=== PATIENT | female | born 1990 | race Caucasian/White ===

== ENCOUNTER 2016-09-18 14:59 | Outpatient (CLI) | payer BC ==
[~2016-09-18 14:59] MED LIST: AC500T; CIPR500T78 PO; CPR500T; DOCU-143 PO; FRS325T PO; HYDR-3454 PO; IBP600T1 PO; ONDA4TAB11 PO; PREN1TAB39
--- NOTE | 2016-09-21 10:13 | Physician Query-Final Dx ---
JAVY SCHUSTER 09/21/16 1013: Clinic Account Progress/Dx Physician Query: Please give diagnosis Date of Service Sep 18, 2016 at 14:59 YAO OCONNELL MD 09/25/16 0913: Clinic Account Progress/Dx DIAGNOSIS: Diagnosis Salivary gland swelling JAVY SCHUSTER Sep 21, 2016 10:13 YAO OCONNELL MD Sep 25, 2016 09:13
[2016-09-21 16:55] LABS: IGG MUMPS ANTIBODY 1.69 (0.00-0.89)
[2016-09-23 06:52] LABS: IGM MUMPS ANTIBODY <1:10 (<1:10)
== END 2016-09-18 15:45 | disposition home or self-care (01) ==
LOC: LAB 14:59
PROVIDERS: ATTEND Emergency Medicine
DX: R22.0 Localized swelling, mass and lump, head (principal)
CPT/HCPCS: 36415; 86735; 87798

== ENCOUNTER 2016-10-23 09:45 | Emergency (ER) | payer BC, OTHER ==
[~2016-10-23] VITALS: Ht 175.3 cm; Wt 74.8 kg
[2016-10-23] MEDS ORDERED: CETI10CA PO (10:02)
--- NOTE | 2016-10-23 10:30 | Diagnostic Imaging Report ---
Three views of the left middle finger. INDICATION: Injury. FINDINGS: There is no fracture, dislocation or radiopaque foreign body. IMPRESSION: Unremarkable exam. Dictated by: Dictated on workstation # [id number]
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
[2016-10-23 10:41] VITALS: BP 122/59
[2016-10-23] MEDS ORDERED: IBUPROFEN 800 MG (MOTRIN) TAB PO ONE (10:45)
== END 2016-10-23 10:42 | disposition home or self-care (01) ==
LOC: EDUNIT# 09:45 → ER 09:47
DX: S60.132A Contusion of left middle finger with damage to nail, initial encounter (principal); W23.0XXA Caught, crushed, jammed, or pinched between moving objects, initial encounter; Y99.8 Other external cause status
CPT/HCPCS: 29130; 73140

== ENCOUNTER 2017-02-09 23:13 | Emergency (ER) | payer BC ==
[~2017-02-09] VITALS: Ht 175.3 cm; Wt 74.8 kg
[~2017-02-09 23:13] MED LIST changes: +CETI10CA PO
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
[2017-02-10] MEDS ORDERED: RX-TRIMETH/SULFA. 160-800 MG (BACTRIM DS) TAB PPK#2 PO STA (00:16)
[2017-02-10] MEDS ORDERED: RX-NAPROXEN (NAPROSYN) 250 MG TAB PPK#4 PO STA (00:16)
[2017-02-10] MEDS ORDERED: RX-TRAMADOL 50 MG (ULTRAM) TAB PPK#4 PO STA (00:16)
[2017-02-10] MEDS ORDERED: SULF1TAB35 PO (00:24)
[2017-02-10] MEDS ORDERED: NAPR500T3 PO (00:24)
[2017-02-10] MEDS ORDERED: TRAM-42 PO (00:24)
[2017-02-10] MEDS ORDERED: TETANUS,DIPTH,PERTUSS P/F (BOOSTRIX) 0.5 ML VIAL IM ONE (00:30)
[2017-02-10 00:49] VITALS: BP 120/72
--- NOTE | 2017-02-10 08:18 | Diagnostic Imaging Report ---
EXAMINATION: 3 views of the right foot. INDICATION: Right foot pain and swelling. FINDINGS: There is no fracture, dislocation or radiopaque foreign body identified. Joint alignment is satisfactory. IMPRESSION: Unremarkable exam. Dictated by: Dictated on workstation # [id number]
--- OUTSIDE RECORDS SUMMARY | 2017-02-10 17:42 | XMS REPORT ---
Author Author ARIAN BAEZ [facility] eClinicalWorks Address Unknown Phone Unavailable Care Team Providers Care Backbreaker Name Role Phone ARIAN BAEZ CP Unavailable Allergies No Known Allergies Problems Problem Type Condition Code Onset Dates Condition Status Problem Health examination of defined subpopulation V70.5 Active Problem Unspecified viral infection, in conditions classified elsewhere and of unspecified site 079.99 Active Problem Contact with or exposure to unspecified communicable disease V01.9 Active Problem Screening examination for pulmonary tuberculosis V74.1 Active Problem Abdominal tenderness, right upper quadrant 789.61 Active Problem Need for prophylactic vaccination and inoculation, Influenza V04.81 Active Problem Abdominal pain, other specified site 789.09 Active Problem Acute bronchospasm 519.11 Active Problem Influenza with other respiratory manifestations 487.1 Active Problem Pain in joint, shoulder region 719.41 Active Problem Streptococcal sore throat 034.0 Active Medications No Known Medications Results No Known Results Summary Purpose eClinicalWorks Submission
--- OUTSIDE RECORDS SUMMARY | 2017-02-10 17:42 | XMS REPORT ---
Author Author SAVANNA FERNANDEZ Organization eClinical[employer] Address Unknown Phone Unavailable Care Team Providers Care Waiter/Waitress Name Role Phone SAVANNA FERNANDEZ CP Unavailable Allergies, Adverse Reactions, Alerts Substance Reaction Event Type Latex Info Not Available Non Drug Allergy Problems Problem Type Condition Code Onset Dates Condition Status Problem Health examination of defined subpopulation V70.5 Active Problem Unspecified viral infection, in conditions classified elsewhere and of unspecified site 079.99 Active Problem Contact with or exposure to unspecified communicable disease V01.9 Active Assessment Gastroenteritis K52.9 Active Problem Screening examination for pulmonary tuberculosis V74.1 Active Problem Abdominal tenderness, right upper quadrant 789.61 Active Problem Need for prophylactic vaccination and inoculation, Influenza V04.81 Active Problem Abdominal pain, other specified site 789.09 Active Problem Acute bronchospasm 519.11 Active Problem Influenza with other respiratory manifestations 487.1 Active Problem Pain in joint, shoulder region 719.41 Active Problem Streptococcal sore throat 034.0 Active Medications Medication Code System Code Instructions Start Date End Date Status Dosage Zofran ODT [facility] [address]-09 4 MG Orally every 8 hrs Jul 16, 2015 1 tablet on the tongue and allow to dissolve Procedures Procedure Coding System Code Date Office Visit, Est Pt., Level 3 CPT-4 32750 Jul 16, 2015 Vital Signs Date/Time: Jul 16, 2015 Temperature 98.6 F Weight 163 lbs Height 69 in BMI 24.07 Index Blood Pressure Diastolic 68 mmHg Blood Pressure Systolic 116 mmHg Cardiac Monitoring Heart Rate 72 bpm Results No Known Results Summary Purpose eClinicalWorks Submission
--- OUTSIDE RECORDS SUMMARY | 2017-02-10 17:42 | XMS REPORT ---
Author Author YANIV BROWNLEE [facility] eClinicalWorks Address Unknown Phone Unavailable Care Team Providers Care Pump Erector Helper Name Role Phone YANIV BROWNLEE CP Unavailable Allergies, Adverse Reactions, Alerts Substance Reaction Event Type Latex Info Not Available Non Drug Allergy Problems Problem Type Condition Code Onset Dates Condition Status Problem Health examination of defined subpopulation V70.5 Active Problem Unspecified viral infection, in conditions classified elsewhere and of unspecified site 079.99 Active Problem Contact with or exposure to unspecified communicable disease V01.9 Active Assessment Abdominal wall pain R10.9 Active Problem Screening examination for pulmonary tuberculosis [...] Instructions Start Date End Date Status Dosage Tramadol HCl [facility] [address]-93 50 mg Orally every 6 hrs Mar 24, 2016 1 tablet as needed Procedures Procedure Coding System Code Date Office Visit, Est Pt., Level 3 CPT-4 66057 Mar 24, 2016 Vital Signs Date/Time: Mar 24, 2016 Cardiac Monitoring Heart Rate 72 bpm Weight 167.2 lbs Height 69 in BMI 24.69 Index Blood Pressure Diastolic 64 mmHg Blood Pressure Systolic 120 mmHg Results No Known Results Summary Purpose eClinicalWorks Submission
--- OUTSIDE RECORDS SUMMARY | 2017-02-10 17:42 | XMS REPORT ---
Author Author ARIAN BAEZ [facility] eClinicalWorks Address Unknown Phone Unavailable Care Team Providers Care Fur Dyer Name Role Phone ARIAN BAEZ CP Unavailable [...]
--- OUTSIDE RECORDS SUMMARY | 2017-02-10 17:42 | XMS REPORT ---
Author ANDRES Vaz [facility] eClinicalWorks Address Unknown Phone Unavailable Care Team Providers Care Polymerization Supervisor Name Role Phone ANDRES SWEENEY CP Unavailable Allergies No Known Allergies Problems Problem Type Condition Code Onset Dates Condition Status Problem Contact with or exposure to unspecified communicable disease V01.9 Active Problem Influenza with other respiratory manifestations 487.1 Active Problem Unspecified viral infection, in conditions classified elsewhere and of unspecified site 079.99 Active Problem Screening examination for pulmonary tuberculosis V74.1 Active Problem Health examination of defined subpopulation V70.5 Active Problem Abdominal pain, other specified site 789.09 Active Problem Abdominal tenderness, right upper quadrant 789.61 Active Problem Seasonal allergic rhinitis, unspecified allergic rhinitis trigger J30.2 Active Problem Streptococcal sore throat 034.0 Active Problem Acute bronchospasm 519.11 Active Problem Need for prophylactic vaccination and inoculation, Influenza V04.81 Active Problem Pain in joint, shoulder region 719.41 Active Medications No Known Medications Vital Signs Date/Time: Jul 06, 2016 Cardiac Monitoring Heart Rate 76 bpm Weight 170.8 lbs Height 69 in BMI 25.22 Index Blood Pressure Diastolic 70 mmHg Blood Pressure Systolic 118 mmHg Results No Known Results Summary Purpose eClinicalWorks Submission
--- OUTSIDE RECORDS SUMMARY | 2017-02-10 17:43 | XMS REPORT ---
Author Author YANIV BROWNLEE [facility] eClinicalWorks Address Unknown Phone Unavailable Care Team Providers Care Retail Service Technician Name Role Phone YANIV BROWNLEE CP Unavailable Allergies No Known Allergies Problems Problem Type Condition Code Onset Dates Condition Status Problem Health examination of defined subpopulation V70.5 Active Problem Unspecified viral infection, in conditions classified elsewhere and of unspecified site 079.99 Active Problem Contact with or exposure to unspecified communicable disease V01.9 Active Assessment Abdominal wall mass R19.00 Active Problem Screening examination for pulmonary tuberculosis [...]
== END 2017-02-10 00:49 | disposition home or self-care (01) ==
LOC: EDUNIT# 23:13 → ER 23:15
DX: L03.115 Cellulitis of right lower limb (principal); F17.210 Nicotine dependence, cigarettes, uncomplicated; Z23 Encounter for immunization
CPT/HCPCS: 73630; 90471; 90715; 99284

== ENCOUNTER 2018-06-03 19:59 | Observation (INO) | payer SELFPAY ==
[~2018-06-03] VITALS: Ht 177.8 cm; Wt 76.5 kg
[~2018-06-03 19:59] MED LIST changes: +NAPR-915 PO; +SULF1TAB35 PO; +TRAM-42 PO
[2018-06-03] MEDS ORDERED: LACTATED RINGERS 1,000 ML IV ONE ×3 (20:08→21:04)
--- OUTSIDE RECORDS SUMMARY | 2018-06-03 20:15 | XMS REPORT ---
Author Author VAN MOLINA Organization [facility] Address [address] [place] [address] Care Team Providers Care Green Chain Offbearer Name Role Phone VAN MOLINA Unavailable PROBLEMS Type Condition ICD9-CM Code NTV87-OR Code Onset Dates Condition Status SNOMED Code Problem Abdominal wall mass R22.2 Active 424527384 Problem Seasonal allergic rhinitis, unspecified allergic rhinitis trigger J30.2 Active 806134030 ALLERGIES Substance Reaction Event Type Date Status Latex Unknown Non Drug Allergy Apr, Active ENCOUNTERS Encounter Location Date Diagnosis [facility] [address] [address] Apr, Light headed R42 ; Gastroenteritis K52.9 and Nausea R11.0 [facility] [address] [address] Aug, Cough R05 and Nasopharyngitis acute J00 [facility] [address] [place] [address] Aug, Other viral agents as the cause of diseases classified elsewhere B97.89 and Acute upper respiratory infection, unspecified J06.9 [facility] [address] [address] Aug, Cough R05 and Acute nasopharyngitis J00 [facility] [address] [address] Jun, Sore throat J02.9 ; Body aches R52 and Viral syndrome B34.9 [facility] [address] [id number] Jun, Dental caries K02.9 [facility] [address] [place] [id number] May, Dental examination Z01.20 [facility] [address] [place] [id number] May, Dental examination Z01.20 [facility] [id number] [place] [address] Mar, Acute bilateral low back pain without sciatica M54.5 and Abdominal wall mass R22.2 [facility] [address] [address] Mar, Viral gastroenteritis A08.4 [facility] [address] [address] Feb, [facility] [address] [address] Feb, [place] [address] [address] Feb, Right foot injury, initial encounter S99.921A [facility] [id number] [place] [address] Jan, Sore throat J02.9 [id number] [place] [address] Jan, [facility] [id number] [place] [address] Oct, Gastroenteritis K52.9 [facility] [id number] [place] [address] 16 Sep, 2016 Sore throat J02.9 and Seasonal allergic rhinitis, unspecified allergic rhinitis trigger J30.2 [facility] [id number] [place] [address] 10 Sep, 2016 [facility] [id number] [place] [address]67 [address] 09 Sep, 2016 Sore throat J02.9 ; Acute non-recurrent frontal sinusitis J01.10 and Allergic rhinitis, unspecified allergic rhinitis trigger, unspecified rhinitis seasonality J30.9 [facility] [address] [address] Aug, Sore throat J02.9 ; Fever R50.9 ; Strep pharyngitis J02.0 and Influenza A J10.1 [facility] [address] [address] Jun, Sore throat J02.9 ; Seasonal allergic rhinitis, unspecified allergic rhinitis trigger J30.2 and Strep pharyngitis J02.0 [facility] [address] [address] Jun, [facility] [address] [address] Mar, Abdominal wall mass R19.00 [facility] [address] [address] Mar, Abdominal wall pain R10.9 [facility] [address] [address] Jan, Examination, physical, employee Z02.89 and Screening for tuberculosis Z11.1 [facility] [address] [id number] December, Dental caries K02.9 [facility] [address] [id number] December, Dental examination Z01.20 [facility] [address] [id number] Nov, Encounter for dental examination Z01.20 [facility] [address] [id number] Nov, Dental examination V72.2 [facility] [address] [id number] Nov, Dental examination Z01.20 [facility] [address] [id number] 08 Oct, 2015 Encounter for dental examination Z01.20 [facility] [id number] [place] [address] 08 Jul, 2015 Gastroenteritis K52.9 [facility] [id number] [place] [address]267[address] 8215 Jun, [facility] [id number] [place] [address]- 406[address] May, [facility] [id number] [place] [address]37- 4[address] Mar, [facility] [id number] [place] [address]126- 8168 Mar, Conjunctivitis of left eye 372.30 [facility] [id number] [place] [address] 23124- 5471 Jan, Dysuria 788.1 ; Urinary tract infection, site not specified 599.0 and Acute sinusitis 461.9 [facility] [id number] [place] [address]388[address] 4870 Jan, [facility] [id number] [place] [address] 28424- 0121 Jan, Pharyngitis 462 [facility] [address] [place] [address] 80393[address] 6661 Nov, [facility] [id number] [place] [address] 10586- 4015 Nov, [facility] [id number] [place] [address] 35408- 7222 Aug, [facility] [id number] [place] [address] 72181- 6818 Aug, [facility] [address] [place] [address] 47813- 5[address] Jun, [facility] [address] [facility] [id number] [place] [address] Jun, [facility] [place] [facility] [address] [id number] [place] [address]- 7[address] Jun, [facility] [place] [facility] [address] [id number] [place] [address] 3[address] Jun, [facility] [place] [facility] [address] [id number] [place] [address]- 0659 Feb, [facility] [place] [facility] [address] [id number] [place] [address]- 5[address] Feb, [facility] [place] [facility] [address] [id number] [place] [address] 3[address] December, [facility] [place] [facility] [address] [id number] [place] [address]- 55[address] December, [facility] [place] [facility] [address] [id number] [place] [address]- 450[address] December, [facility] [place] [facility] [address] [id number] [place] [address] 4[address] December, [facility] [place] [facility] [address] [id number] [place] [address] 12[address] December, [facility] [place] [facility] [address] [id number] [place] [address]- 1483 Oct, [facility] [place] [facility] [address] [id number] [place] [address] 39[address] Oct, [facility] [place] [facility] [address] [id number] [place] [address]- 1709 Sep, [facility] [place] [facility] [address] [id number] [place] [address] Sep, [facility] [place] [facility] [address] [id number] [place] [address]- 9666 Aug, [facility] [place] [facility] [address] [id number] [place] [address] 16[address] Aug, [facility] [id number], [place] [address] Jul, [facility] [address], [place] [address] 6[address] Jul, [facility] [address] [id number], [place] [address] 04[address] Jul, [facility] [id number] [place] [address] 73598- 2546 Jul, [facility] [address] [place] [address] 88268- 7982 Jun, [facility] [address] [place] [address] 04690- 0336 Jun, [facility] [address], [place] [address] 136[address] Sep, [facility] [id number], [place] [address] 9[address] Mar, IMMUNIZATIONS No Known Immunizations SOCIAL HISTORY Never Assessed REASON FOR VISIT working at [employer]...suddenly got lightheaded et though she was going to pass out. sat down et was given some water. felt nauseated right after. [email or web address], denies unusual stress, did eat today. PLAN OF CARE Activity Details Follow Up prn Reason:if symptoms worsen VITAL SIGNS Height 69 in 2018-04-19 Weight 152.6 lbs 2018-04-19 Temperature 98.3 degrees Fahrenheit 2018-04-19 Heart Rate 88 bpm 2018-04-19 Respiratory Rate 20 2018-04-19 BMI 22.53 kg/m2 2018-04-19 Blood pressure systolic 118 mmHg 2018-04-19 Blood pressure diastolic 68 mmHg 2018-04-19 MEDICATIONS Medication Instructions Dosage Frequency Start Date End Date Duration Status IBU-200 200 MG Orally every 6 hrs 1 tablet with food or milk as needed 6h Active Ondansetron HCl 8 MG Orally Twice a day 1 tablet 12h 11 Apr, 2018 5 days Active RESULTS Name Result Date Reference Range GLUCOSE FINGERSTICK (IN HOUSE) 2018-04-19 GLU FINGERSTICK 97 PC + Lot # [id number] Exp date 2018 PROCEDURES Procedure Date Ordered Result Body Site GLUCOSE BLOOD TEST Apr 19, 2018 INSTRUCTIONS MEDICATIONS ADMINISTERED No Known Medications MEDICAL (GENERAL) HISTORY Type Description Date Surgical History Hysterectomy-partial 04/2013 Surgical History section 08/2011 Surgical History tubal ligation 10/2011 Surgical History scar tissue removed from csection scar 2016
--- OUTSIDE RECORDS SUMMARY | 2018-06-03 20:15 | XMS REPORT ---
Author Author ANGELIQUE ANDREA Organization [facility] Address [address] [place] [address] Care Team Providers Care Paper Supervisor Name Role Phone ANGELIQUE ANDREA Unavailable PROBLEMS Type Condition ICD9-CM Code GMP62-LI Code Onset Dates Condition Status SNOMED Code Problem Abdominal wall mass R22.2 Active 780487376 Problem Seasonal allergic rhinitis, unspecified allergic rhinitis trigger J30.2 Active 008842850 ALLERGIES Substance Reaction Event Type Date Status Latex Unknown Non Drug Allergy Aug, Active ENCOUNTERS Encounter Location Date Diagnosis [facility] [address] [address] Aug, Cough R05 and Nasopharyngitis acute J00 [facility] [address] [address] Aug, Other viral agents as the cause of diseases classified elsewhere B97.89 and Acute upper respiratory infection, unspecified J06.9 [facility] [id number] [place] [address] Aug, Cough R05 and Acute nasopharyngitis J00 [facility] [address] [address] Jun, Sore throat J02.9 ; Body aches R52 and Viral syndrome B34.9 [facility] [address] [id number] Jun, Dental caries K02.9 [facility] [address] [id number] May, Dental examination Z01.20 [facility] [address] [id number] May, Dental examination Z01.20 [facility] [id number] [place] [address]2 Mar, Acute bilateral low back pain without sciatica M54.5 and Abdominal wall mass R22.2 [facility] [address] [address] Mar, Viral gastroenteritis A08.4 [place] [address] [address] Feb, [place] [address] [address] Feb, [place] [address] [address] Feb, Right foot injury, initial encounter S99.921A [facility] [address] [place] [address] Jan, Sore throat J02.9 [facility] [address] [address] Jan, [facility] [address] [place] [address] 14 Oct, 2016 Gastroenteritis K52.9 [facility] [address] [place] [address]8988 [address] 16 Sep, 2016 Sore throat J02.9 and Seasonal allergic rhinitis, unspecified allergic rhinitis trigger J30.2 [place] [id number] [place] [address]3546- 4489 10 Sep, 2016 [facility] [address] [place] [address] 36262 [address] 09 Sep, 2016 Sore throat J02.9 ; Acute non-recurrent frontal sinusitis J01.10 and Allergic rhinitis, unspecified allergic rhinitis trigger, unspecified rhinitis seasonality J30.9 [facility] [address] [place] [address] [id number] -3283 Aug, Sore throat J02.9 ; Fever R50.9 ; Strep pharyngitis J02.0 and Influenza A J10.1 [facility] [id number] [place] [address] 83925 -5377 Jun, Sore throat J02.9 ; Seasonal allergic rhinitis, unspecified allergic rhinitis trigger J30.2 and Strep pharyngitis J02.0 [facility] [id number] [place] [address] 80450 -[address]67 Jun, [facility] [id number] [place] [address] 32505- 6446 Mar, Abdominal wall mass R19.00 [facility] [id number] [place] [address] 93992- 2050 Mar, Abdominal wall pain R10.9 [facility] [id number] [place] [address] 69666- 6317 Jan, Examination, physical, employee Z02.89 and Screening for tuberculosis Z11.1 [facility] [id number] [place] [address] [id number] December, Dental caries K02.9 [facility] [id number] [place] [id number] December, Dental examination Z01.20 [facility] [id number] [place] [address] [id number] Nov, Encounter for dental examination Z01.20 [facility] [id number] [place] [address] [id number] Nov, Dental examination V72.2 [facility] [address] [id number] Nov, Dental examination Z01.20 [facility] [id number] [place] [address] [id number] Oct, Encounter for dental examination Z01.20 [facility] [address] [place] [address] Jul, Gastroenteritis K52.9 [facility] [id number] [place] [address] 75671- 9246 Jun, [facility] [id number] [place] [address] 35239- 0814 May, [facility] [id number] [place] [address] 51297- 9607 Mar, [facility] [id number] [place] [address] 09814- 8904 Mar, Conjunctivitis of left eye 372.30 [facility] [id number] [place] [address] 46969- 1815 Jan, Dysuria 788.1 ; Urinary tract infection, site not specified 599.0 and Acute sinusitis 461.9 [facility] [id number] [place] [address] 03176- 7191 Jan, [facility] [address] [place] [address] 19240- 3218 Jan, Pharyngitis 462 [facility] [address] [place] [address] 11035- 8829 Nov, [facility] [address] [address]- 6927 Nov, [facility] [address] [address]- 2031 Aug, [facility] [address] [address]- 5752 Aug, [facility] [id number] [place] [address] 17390- 5707 Jun, [facility] [address] [address]- 1472 Jun, [facility] [id number] [place] [address] 31679- 8875 Jun, [facility] [place] [facility] [address] [id number] [place] [address]- 8514 Jun, [facility] [place] [facility] [address] [id number] [place] [address]- 9795 Feb, [facility] [place] [facility] [address] [id number] [place] [address]- 3905 Feb, [facility] [place] [facility] [address] [id number] [place] [address]- 7662 December, [facility] [place] [facility] [address] [id number] [place] [address]- 3452 December, [facility] [place] [facility] [address] [id number] [place] [address]- 3901 December, [facility] [place] [facility] [address] [id number] [place] [address]- 5298 December, [facility] [place] [facility] [address] [id number] [place] [address]- 3756 December, [facility] [place] [facility] [address] [id number] [place] [address]- 5071 Oct, [facility] [place] [facility] [address] [id number] [place] [address]- 7849 Oct, [facility] [place] [facility] [address] [id number] [place] [address]- 3457 Sep, [facility] [place] [facility] [address] [id number] [place] [address]- 0040 Sep, [facility] [place] [facility] [address] [id number] [place] [address]- 5766 Aug, [facility] [place] [facility] [address] [id number] [place] [address]- 8392 Aug, [facility] [place] [facility] [address] [id number] [place] [address]- 4237 Jul, [facility] [place] [facility] [address] [facility] [id number] [address] 2546 Jul, [facility] [address] [facility] [id number] [address]- 4176 Jul, [facility] [address] [id number] [address]- 2546 Jul, [facility] [address] [id number] [address]- 9946 Jun, [facility] [address] [facility] [id number] [address]- 5426 Jun, [facility] [address] [id number] [address]- 2644 Sep, [facility] [address] [id number] [address]- 1706 Mar, IMMUNIZATIONS No Known Immunizations SOCIAL HISTORY Never Assessed REASON FOR VISIT flu symptoms Pt states she was seen 2 days ago and is now feeling worse. MAX Cedillo PLAN OF CARE Activity Details Follow Up prn Reason: VITAL SIGNS Height 69 in 2017-08-12 Weight 142.6 lbs 2017-08-12 Temperature 98.1 degrees Fahrenheit 2017-08-12 Heart Rate 80 bpm 2017-08-12 Respiratory Rate 20 2017-08-12 BMI 21.06 kg/m2 2017-08-12 Blood pressure systolic 101 mmHg 2017-08-12 Blood pressure diastolic 62 mmHg 2017-08-12 MEDICATIONS Medication Instructions Dosage Frequency Start Date End Date Duration Status Bactrim DS 800-160 MG Orally Twice a day 1 tablet 12h Not-Taking Tramadol HCl 50 mg Orally every 6 hrs 1 tablet as needed 6h Mar, Not-Taking Clindamycin HCl 150 MG Orally every 6 hrs 2 capsules 6h 7 days Not- Taking Naproxen 500 MG Orally every 12 hrs 1 tablet as needed 12h Not- Taking Zofran ODT 4 MG Orally every 8 hrs 1 tablet on the tongue and allow to dissolve 8h Mar, 5 days Not-Taking Zithromax 250 MG Orally Once a day 2 tablets on the first day, then 1 tablet daily for 4 days 24h 5 day(s) Not-Taking IBU-200 200 MG Orally every 6 hrs 1 tablet with food or milk as needed 6h Not-Taking RESULTS Name Result Date Reference Range INFLUENZA A & B (IN HOUSE) 2017-08-12 INFLUENZA A negative INFLUENZA B negative Control + Lot # [id number] Exp date PROCEDURES Procedure Date Ordered Result Body Site INFLUENZA ASSAY W/OPTIC Aug 12, 2017 INSTRUCTIONS MEDICATIONS ADMINISTERED No Known Medications MEDICAL (GENERAL) HISTORY Type Description Date Surgical History Hysterectomy-partial 04/2013 Surgical History section 08/2011 Surgical History tubal ligation 10/2011 Surgical History scar tissue removed from csection scar 2016
--- OUTSIDE RECORDS SUMMARY | 2018-06-03 20:15 | XMS REPORT ---
Author Author SUJEY MEZA [facility] Address [address] [place] [address] Care Team Providers Care Acid Polymerization Operator Name Role Phone SUJEY MEZA Unavailable PROBLEMS Type Condition ICD9-CM Code ZIX16-TS Code Onset Dates Condition Status SNOMED Code Problem Abdominal wall mass R22.2 Active 213050432 Problem Seasonal allergic rhinitis, unspecified allergic rhinitis trigger J30.2 Active 359843635 ALLERGIES Substance Reaction Event Type Date Status Latex Unknown Non Drug Allergy Oct, Active SOCIAL HISTORY Never Assessed PLAN OF CARE Activity Details Follow Up prn Reason: VITAL SIGNS Height 69 in 2016-10-20 Weight 169.4 lbs 2016-10-20 Temperature 98.4 degrees Fahrenheit 2016-10-20 Heart Rate 76 bpm 2016-10-20 Respiratory Rate 18 2016-10-20 BMI 25.01 kg/m2 2016-10-20 Blood pressure systolic 122 mmHg 2016-10-20 Blood pressure diastolic 70 mmHg 2016-10-20 MEDICATIONS Medication Instructions Dosage Frequency Start Date End Date Duration Status Cetirizine HCl 10 mg Orally Once a day 1 tablet 24h Jun, Active RESULTS No Results PROCEDURES No Known procedures IMMUNIZATIONS No Known Immunizations MEDICAL (GENERAL) HISTORY Type Description Date Surgical History Hysterectomy-partial 04/2013 Surgical History section 08/2011 Surgical History tubal ligation 10/2011 Surgical History scar tissue removed from csection scar 2016
--- OUTSIDE RECORDS SUMMARY | 2018-06-03 20:15 | XMS REPORT ---
Author Author DAIVD PEARSON [facility] Address Unknown Care Team Providers Care Feather Stitcher Name Role Phone DAVID PEARSON Unavailable PROBLEMS Type Condition ICD9-CM Code IWF08-LH Code Onset Dates Condition Status SNOMED Code Problem Abdominal wall mass R22.2 Active 273054089 Problem Seasonal allergic rhinitis, unspecified allergic rhinitis trigger J30.2 Active 626312027 ALLERGIES Substance Reaction Event Type Date Status Latex Unknown Non Drug Allergy May, Active ENCOUNTERS Encounter Location Date Diagnosis [facility] [address] [address] Aug, Cough R05 and Nasopharyngitis acute J00 [facility] [address] [address] Aug, Other viral agents as the cause of diseases classified elsewhere B97.89 and Acute upper respiratory infection, unspecified J06.9 [facility] [address] [address] Aug, Cough R05 and Acute nasopharyngitis J00 [facility] [address] [address] Jun, Sore throat J02.9 ; Body aches R52 and Viral syndrome B34.9 [facility] [id number] [place] [address] [id number] Jun, Dental caries K02.9 [facility] [id number] [place] [address] [id number] May, Dental examination Z01.20 [facility] [id number] [place] [address] [id number] May, Dental examination Z01.20 [facility] [id number] [place] [address]60- 9208 Mar, Acute bilateral low back pain without sciatica M54.5 and Abdominal wall mass R22.2 [facility] [id number] [place] [address] -2305 Mar, Viral gastroenteritis A08.4 [place] [id number] [place] [address]288- 5990 Feb, [facility] [address] [address] Feb, [place] [address] [address] Feb, Right foot injury, initial encounter S99.921A [facility] [address] [place] [address]93 Jan, Sore throat J02.9 [facility] [address] [place] [address]184 Jan, [facility] [address] [place] [address] 0[address]32 [address]114 14 Oct, 2016 Gastroenteritis K52.9 [facility] [address] [place] [address] 03637 -0814 16 Sep, 2016 Sore throat J02.9 and Seasonal allergic rhinitis, unspecified allergic rhinitis trigger J30.2 [facility] [id number] [place] [address]9901[address] 3412 10 Sep, 2016 [facility] [address] [place] [id number] [place] [address] 13434 -9900 09 Sep, 2016 Sore throat J02.9 ; Acute non-recurrent frontal sinusitis J01.10 and Allergic rhinitis, unspecified allergic rhinitis trigger, unspecified rhinitis seasonality J30.9 [facility] [address] [place] [id number] [place] [address]24 Aug, Sore throat J02.9 ; Fever R50.9 ; Strep pharyngitis J02.0 and Influenza A J10.1 [facility] [id number] [place] [address] Jun, Sore throat J02.9 ; Seasonal allergic rhinitis, unspecified allergic rhinitis trigger J30.2 and Strep pharyngitis J02.0 [facility] [address] [address] Jun, [facility] [address] 0[address] 4288 Mar, Abdominal wall mass R19.00 [facility] [address] 39[address]- 4413 Mar, Abdominal wall pain R10.9 [facility] [address] [address] Jan, Examination, physical, employee Z02.89 and Screening for tuberculosis Z11.1 [facility] [id number] [place] [address] [id number] December, Dental caries K02.9 [facility] [address] [id number] December, Dental examination Z01.20 [facility] [address] [id number] Nov, Encounter for dental examination Z01.20 [facility] [id number] [place] [address] [id number] Nov, Dental examination V72.2 [facility] [id number] [place] [address] [id number] Nov, Dental examination Z01.20 [facility] [address] [id number] Oct, Encounter for dental examination Z01.20 [facility] [id number] [place] [address]86 -4888 Jul, Gastroenteritis K52.9 [facility] [address] [address] Jun, [facility] [address] [address] May, [facility] [address] [address] Mar, [facility] [id number] [address] 80[address] Mar, Conjunctivitis of left eye 372.30 [facility] [address] [address] Jan, Dysuria 788.1 ; Urinary tract infection, site not specified 599.0 and Acute sinusitis 461.9 [facility] [address] [address] 6[address] Jan, [facility] [address] [address] 7[address] Jan, Pharyngitis 462 [facility] [address] [address] 30[address] Nov, [facility] [address], [place] [address] Nov, [facility] [address], [place] [address] 8[address] Aug, [facility] [address], [place] [address] 477[address] Aug, [facility] [address], [place] [address] 1204 Jun, [facility] [address], [place] [address] 230[address] Jun, [facility] [id number] [address] 3470 Jun, [facility] [address] [id number] [address] 3[address] Jun, [facility] [place] [facility] [address] [id number] [place] [address]- 4[address] Feb, [facility] [place] [facility] [address] [id number] [place] [address]- 0954 Feb, [facility] [place] [facility] [address] [id number] [place] [address]- 5249 December, [facility] [place] [facility] [address] [id number] [place] [address]- 0750 December, [facility] [place] [facility] [address] [id number] [place] [address]- 0280 December, [facility] [place] [facility] [address] [id number] [place] [address]- 9346 December, [facility] [place] [facility] [address] [id number] [place] [address]- 7938 December, [facility] [place] [facility] [address] [id number] [place] [address]- 5149 Oct, [facility] [place] [facility] [address] [id number] [place] [address]- 3171 Oct, [facility] [place] [facility] [address] [id number] [place] [address]- 9202 Sep, [facility] [place] [facility] [address] [id number] [place] [address]- 8730 Sep, [facility] [place] [facility] [address] [id number] [place] [address]- 4697 Aug, [facility] [place] [facility] [address] [id number] [place] [address]- 1246 Aug, [facility] [place] [facility] [address] [id number] [place] [address]- 4526 Jul, [facility] [place] [facility] [address] [id number] [place] [address]- 7356 Jul, [facility] [address] [facility] [id number] [address] Jul, [facility] [address] [id number] [address]- 2546 Jul, [facility] [address] [facility] [id number] [address] 2546 Jun, [facility] [address], [place] [address]- 25[address] Jun, [facility] [address] [facility] [id number] [address]- [address] Sep, [facility] [id number] [address] 2546 Mar, IMMUNIZATIONS No Known Immunizations SOCIAL HISTORY Never Assessed REASON FOR VISIT FACIAL SWELLING PLAN OF CARE Activity Details Follow Up 1 Week Reason:Extract # 28 #29 VITAL SIGNS Height 69 in 2017-06-04 Blood pressure systolic 131 mmHg 2017-06-04 Blood pressure diastolic 87 mmHg 2017-06-04 MEDICATIONS Medication Instructions Dosage Frequency Start Date End Date Duration Status Amoxicillin 500 MG Orally every 8 hrs 1 capsule 8h 3 Jun, 2017 7 days Active RESULTS No Results PROCEDURES Procedure Date Ordered Result Body Site LTD ORAL EVALUATION - PROBLEM FOCUS Jun 04, 2017 INSTRUCTIONS MEDICATIONS ADMINISTERED No Known Medications MEDICAL (GENERAL) HISTORY Type Description Date Surgical History Hysterectomy-partial 04/2013 Surgical History section 08/2011 Surgical History tubal ligation 10/2011 Surgical History scar tissue removed from csection scar 2016
--- OUTSIDE RECORDS SUMMARY | 2018-06-03 20:15 | XMS REPORT ---
Author Author PEPE CARIAS Organization [facility] Address [address] [place] [address] Care Team Providers Care Food Beverage Server Name Role Phone PEPE CARIAS Unavailable PROBLEMS Type Condition ICD9-CM Code JOM80-MY Code Onset Dates Condition Status SNOMED Code Problem Abdominal wall mass R22.2 Active 355166867 Problem Seasonal allergic rhinitis, unspecified allergic rhinitis trigger J30.2 Active 855471217 ALLERGIES Substance Reaction Event Type Date Status Latex Unknown Non Drug Allergy Jun, Active ENCOUNTERS Encounter Location Date Diagnosis [facility] [address] [place] [address] Apr, Light headed R42 ; Gastroenteritis K52.9 and Nausea R11.0 [facility] [address] [place] [address]268 -8376 Aug, Cough R05 and Nasopharyngitis acute J00 [facility] [address] [place] [address]157 [address]75 Aug, Other viral agents as the cause of diseases classified elsewhere B97.89 and Acute upper respiratory infection, unspecified J06.9 [facility] [address] [place] [address]191 -9185 Aug, Cough R05 and Acute nasopharyngitis J00 [facility] [address] [place] [address] 96591 -5198 Jun, Sore throat J02.9 ; Body aches R52 and Viral syndrome B34.9 [facility] [address] [id number] Jun, Dental caries K02.9 [facility] [address] [id number] May, Dental examination Z01.20 [facility] [id number] [place] [address] [id number] May, Dental examination Z01.20 [facility] [id number] [place] [address] 83938- 5097 Mar, Acute bilateral low back pain without sciatica M54.5 and Abdominal wall mass R22.2 [facility] [address] [address] Mar, Viral gastroenteritis A08.4 [facility] [address] [address]- [address] Feb, [facility] [address] [address]- [address] Feb, [place] [address] [address] 8667 Feb, Right foot injury, initial encounter S99.921A [facility] [address] [place] [id number] [place] [address] 63522 -9097 Jan, Sore throat J02.9 [facility] [id number] [place] [address] 81921 -6759 Jan, [facility] [address] [place] [id number] [place] [address] 07274 -2337 Oct, Gastroenteritis K52.9 [facility] [address] [place] [id number] [place] [address] 86656 -4520 16 Sep, 2016 Sore throat J02.9 and Seasonal allergic rhinitis, unspecified allergic rhinitis trigger J30.2 [facility] [id number] [place] [address] 37831- 2230 10 Sep, 2016 [facility] [address] [place] [id number] [place] [address] 94920 -0168 09 Sep, 2016 Sore throat J02.9 ; Acute non-recurrent frontal sinusitis J01.10 and Allergic rhinitis, unspecified allergic rhinitis trigger, unspecified rhinitis seasonality J30.9 [facility] [id number] [place] [address] 75094 -1806 Aug, Sore throat J02.9 ; Fever R50.9 ; Strep pharyngitis J02.0 and Influenza A J10.1 [facility] [address] [address] Jun, Sore throat J02.9 ; Seasonal allergic rhinitis, unspecified allergic rhinitis trigger J30.2 and Strep pharyngitis J02.0 [facility] [address] 17031 -[address]114 Jun, [facility] [address] [address]- [address] Mar, Abdominal wall mass R19.00 [facility] [address] 79940- 8063 Mar, Abdominal wall pain R10.9 [facility] [address] [address]- [address]10 Jan, Examination, physical, employee Z02.89 and Screening for tuberculosis Z11.1 [facility] [address] [id number] December, Dental caries K02.9 [facility] [address] [id number] December, Dental examination Z01.20 [facility] [id number] [place] [address] [id number] Nov, Encounter for dental examination Z01.20 [facility] [address] [id number] Nov, Dental examination V72.2 [facility] [address] [id number] Nov, Dental examination Z01.20 [facility] [id number] [id number] 08 Oct, 2015 Encounter for dental examination Z01.20 [facility] [id number] [place] [address] 37393 -0814 Jul, Gastroenteritis K52.9 [facility] [id number] [place] [address] 51690- 3950 Jun, [facility] [id number] [place] [address] 57368- 0181 May, [facility] [id number] [place] [address] 34964- 8098 Mar, [facility] [id number] [place] [address] 73959- 1307 Mar, Conjunctivitis of left eye 372.30 [facility] [id number] [place] [address] 89950- 7073 Jan, Dysuria 788.1 ; Urinary tract infection, site not specified 599.0 and Acute sinusitis 461.9 [facility] [id number] [place] [address] 59657- 0441 Jan, [facility] [id number] [place] [address] 44194- 7360 Jan, Pharyngitis 462 [facility] [id number] [place] [address] 84737- 5113 Nov, [facility] [id number] [place] [address] 43683- 1531 Nov, [facility] [id number] [place] [address] 50607- 1831 Aug, [facility] [id number] [place] [address] 14640- 9059 Aug, [facility] [id number] [place] [address] 31048- 7792 Jun, [facility] [place] [facility] [address] [id number] [place] [address]- 2237 Jun, [facility] [place] [facility] [address] [id number] [place] [address]- 2949 Jun, [facility] [place] [facility] [address] [id number] [place] [address]- 9159 Jun, [facility] [place] [facility] [address] [id number] [place] [address]- 5719 Feb, [facility] [place] [facility] [address] [id number] [place] [address]- 7335 Feb, [facility] [place] [facility] [address] [id number] [place] [address]- 0480 December, [facility] [place] [facility] [address] [id number] [place] [address]- 5310 December, [facility] [place] [facility] [address] [id number] [place] [address]- 1620 December, [facility] [place] [facility] [address] [id number] [place] [address]- 8934 December, [facility] [place] [facility] [address] [id number] [place] [address]- 0347 December, [facility] [place] [facility] [address] [id number] [place] [address]- 7753 Oct, [facility] [place] [facility] [address] [id number] [place] [address]- 7221 Oct, [facility] [place] [facility] [address] [id number] [place] [address]- 6054 Sep, [facility] [place] [facility] [address] [id number] [place] [address]- 3082 Sep, [facility] [place] [facility] [address] [id number] [place] [address]- 2037 Aug, [facility] [place] [facility] [address] [id number] [place] [address]- 3843 Aug, [facility] [id number] [address]- 9585 Jul, [facility] [address] [address]- 4516 Jul, [facility] [address] [address] 2548 Jul, [facility] [address] [place] [address] 40019- 2546 Jul, [facility] [address] [address]- 1768 Jun, [facility] [address] [place] [address] 64276- 8596 Jun, [facility] [address] [address]- 4017 Sep, [facility] [address] [address]- 9322 Mar, IMMUNIZATIONS No Known Immunizations SOCIAL HISTORY Never Assessed REASON FOR VISIT N/V/D that started yesterday...worse today...no diarrhea today. cough, congestion for a week. [id number], also complaining of sore throat and body aches PLAN OF CARE Activity Details Follow Up prn Reason: VITAL SIGNS Height 69 in 2017-06-24 Weight 156.0 lbs 2017-06-24 Temperature 98.4 degrees Fahrenheit 2017-06-24 Heart Rate 74 bpm 2017-06-24 Respiratory Rate 20 2017-06-24 BMI 23.03 kg/m2 2017-06-24 Blood pressure systolic 120 mmHg 2017-06-24 Blood pressure diastolic 74 mmHg 2017-06-24 MEDICATIONS Medication Instructions Dosage Frequency Start Date End Date Duration Status Tramadol HCl 50 mg Orally every 6 hrs 1 tablet as needed 6h Mar, Not-Taking Bactrim DS 800-160 MG Orally Twice a day 1 tablet 12h Not-Taking Naproxen 500 MG Orally every 12 hrs 1 tablet as needed 12h Not- Taking Zofran ODT 4 MG Orally every 8 hrs 1 tablet on the tongue and allow to dissolve 8h Mar, 5 days Not-Taking IBU-200 200 MG Orally every 6 hrs 1 tablet with food or milk as needed 6h Not-Taking Clindamycin HCl 150 MG Orally every 6 hrs 2 capsules 6h 7 days Not- Taking Zithromax 250 MG Orally Once a day 2 tablets on the first day, then 1 tablet daily for 4 days 24h 5 day(s) Not-Taking RESULTS Name Result Date Reference Range INFLUENZA A & B (IN HOUSE) 2017-06-24 INFLUENZA A negative INFLUENZA B negative Control + Lot # [id number] Exp date 2017 STREP A (IN HOUSE) 2017-06-24 STREP A negative Control + Lot # [id number] Exp date 05 08 2018 PROCEDURES Procedure Date Ordered Result Body Site STREP A ASSAY W/OPTIC Jun 24, 2017 INFLUENZA ASSAY W/OPTIC Jun 24, 2017 INSTRUCTIONS MEDICATIONS ADMINISTERED No Known Medications MEDICAL (GENERAL) HISTORY Type Description Date Surgical History Hysterectomy-partial 04/2013 Surgical History section 08/2011 Surgical History tubal ligation 10/2011 Surgical History scar tissue removed from csection scar 2015
[2018-06-03 20:16] LABS: BASOPHILS % (AUTO) 0 % (0-10); EOSINOPHILS # (AUTO) 0.1 10^3/uL (0.0-0.3); EOSINOPHILS % (AUTO) 2 % (0-10); HEMATOCRIT 43 % (35-52); HEMOGLOBIN 14.9 G/DL (11.5-16.0); LYMPHOCYTES # (AUTO) 2.2 X 10^3 (1.0-4.0); LYMPHOCYTES % (AUTO) 33 % (12-44); MEAN CORPUSCULAR HEMOGLOBIN 29 PG (25-34); MEAN CORPUSCULAR HGB CONC 35 G/DL (32-36); MEAN CORPUSCULAR VOLUME 85 FL (80-99); MEAN PLATELET VOLUME 10.5 FL (7.4-10.4); MONOCYTES # (AUTO) 0.7 X 10^3 (0.0-1.0); MONOCYTES % (AUTO) 11 % (0-12); NEUTROPHILS # (AUTO) 3.6 X 10^3 (1.8-7.8); NEUTROPHILS % (AUTO) 54 % (42-75); PLATELET COUNT 263 10^3/uL (130-400); RED BLOOD COUNT 5.08 10^6/uL (4.35-5.85); RED CELL DISTRIBUTION WIDTH 13.2 % (10.0-14.5); WHITE BLOOD COUNT 6.7 10^3/uL (4.3-11.0)
--- OUTSIDE RECORDS SUMMARY | 2018-06-03 20:16 | XMS REPORT ---
Author Author SUJEY MEZA Organization [facility] Address [address] [place] [address] Care Team Providers Care Medical Scribe Name Role Phone DERRICK SUJEY Unavailable PROBLEMS Type Condition ICD9-CM Code OJE83-UO Code Onset Dates Condition Status SNOMED Code Problem Abdominal wall mass R22.2 Active 835567081 Problem Seasonal allergic rhinitis, unspecified allergic rhinitis trigger J30.2 Active 522278390 ALLERGIES Substance Reaction Event Type Date Status Latex Unknown Non Drug Allergy Aug, Active SOCIAL HISTORY No smoking Hx information available PLAN OF CARE Activity Details Follow Up prn Reason: VITAL SIGNS Height 69 in 2016-08-20 Weight 167.8 lbs 2016-08-20 Temperature 100.4 degrees Fahrenheit 2016-08-20 Heart Rate 96 bpm 2016-08-20 Respiratory Rate 20 2016-08-20 BMI 24.78 kg/m2 2016-08-20 Blood pressure systolic 126 mmHg 2016-08-20 Blood pressure diastolic 72 mmHg 2016-08-20 MEDICATIONS Medication Instructions Dosage Frequency Start Date End Date Duration Status Amoxicillin 500 MG Orally every 12 hrs 1 capsule 12h Aug, Aug, 10 day(s) Active RESULTS Name Result Date Reference Range INFLUENZA A & B (IN HOUSE) 2016-08-20 INFLUENZA A positive INFLUENZA B negative Control + Lot # [id number] Exp date 2017 STREP A (IN HOUSE) 2016-08-20 STREP A positive Control + Lot # [id number] Exp date february 23 PROCEDURES Procedure Date Ordered Related Diagnosis Body Site STREP A ASSAY W/OPTIC Aug 20, 2016 INFLUENZA ASSAY W/OPTIC Aug 20, 2016 Office Visit, Est Pt., Level 3 Aug 20, 2016 IMMUNIZATIONS No Known Immunizations
--- OUTSIDE RECORDS SUMMARY | 2018-06-03 20:16 | XMS REPORT ---
Author Author ANGELIQUE ANDREA Organization [facility] Address [address] [place] [address] Care Team Providers Care Email Developer Name Role Phone ANGELIQUE ANDREA Unavailable PROBLEMS Type Condition ICD9-CM Code VQN32-KE Code Onset Dates Condition Status SNOMED Code Problem Abdominal wall mass R22.2 Active 442808171 Problem Seasonal allergic rhinitis, unspecified allergic rhinitis trigger J30.2 Active 791463817 ALLERGIES Substance Reaction Event Type Date Status Latex Unknown Non Drug Allergy Aug, Active ENCOUNTERS Encounter Location Date Diagnosis [facility] [address] [address] Aug, Cough R05 and Nasopharyngitis acute J00 [facility] [address] [address] Aug, Other viral agents as the cause of diseases classified elsewhere B97.89 and Acute upper respiratory infection, unspecified J06.9 [facility] [id number] [place] [address] Aug, Cough R05 and Acute nasopharyngitis J00 [facility] [address] [address] Jun, Sore throat J02.9 ; Body aches R52 and Viral syndrome B34.9 [facility] [address] [id number] Jun, Dental caries K02.9 [facility] [address] [id number] May, Dental examination Z01.20 [facility] [address] [id number] May, Dental examination Z01.20 [facility] [id number] [place] [address] 69438- 8008 Mar, Acute bilateral low back pain without sciatica M54.5 and Abdominal wall mass R22.2 [facility] [address] [address] Mar, Viral gastroenteritis A08.4 [place] [address] [address]88 Feb, [place] [address] 18[address] 1766 Feb, [place] [address] 47594- [address]16 Feb, Right foot injury, initial encounter S99.921A [facility] [address] [place] [address] Jan, Sore throat J02.9 [facility] [address] [address] Jan, [facility] [address] [place] [address]8041 -[address]76 14 Oct, 2016 Gastroenteritis K52.9 [facility] [address] [place] [address] 39714 -1689 16 Sep, 2016 Sore throat J02.9 and Seasonal allergic rhinitis, unspecified allergic rhinitis trigger J30.2 [place] [id number] [place] [address] 70136- 3951 10 Sep, 2016 [facility] [address] [place] [address]87 -4793 09 Sep, 2016 Sore throat J02.9 ; Acute non-recurrent frontal sinusitis J01.10 and Allergic rhinitis, unspecified allergic rhinitis trigger, unspecified rhinitis seasonality J30.9 [facility] [address] [place] [address] [id number] -4607 Aug, Sore throat J02.9 ; Fever R50.9 ; Strep pharyngitis J02.0 and Influenza A J10.1 [facility] [id number] [place] [address]26 [address]329 Jun, Sore throat J02.9 ; Seasonal allergic rhinitis, unspecified allergic rhinitis trigger J30.2 and Strep pharyngitis J02.0 [facility] [id number] [place] [address]19 [address]2674 Jun, [facility] [id number] [place] [address] 47917- 4775 Mar, Abdominal wall mass R19.00 [facility] [id number] [place] [address] 88614- 2478 Mar, Abdominal wall pain R10.9 [facility] [id number] [place] [address] 21181- 3939 Jan, Examination, physical, employee Z02.89 and Screening for tuberculosis Z11.1 [facility] [id number] [place] [address] [id number] December, Dental caries K02.9 [facility] [id number] [place] [address] [id number] December, Dental examination Z01.20 [facility] [id number] [place] [address] [id number] Nov, Encounter for dental examination Z01.20 [facility] [id number] [place] [address] [id number] Nov, Dental examination V72.2 [facility] [address] [id number] Nov, Dental examination Z01.20 [facility] [id number] [place] [address] [id number] Oct, Encounter for dental examination Z01.20 [facility] [address] [place] [address] Jul, Gastroenteritis K52.9 [facility] [id number] [place] [address] 24034- 9933 Jun, [facility] [id number] [place] [address] 41248- 7430 May, [facility] [id number] [place] [address] 18920- 7412 Mar, [facility] [id number] [place] [address] 89284- 8066 Mar, Conjunctivitis of left eye 372.30 [facility] [id number] [place] [address] 76692- 9619 Jan, Dysuria 788.1 ; Urinary tract infection, site not specified 599.0 and Acute sinusitis 461.9 [facility] [id number] [place] [address] 86506- 5631 Jan, [facility] [id number] [place] [address] 55583- 1678 Jan, Pharyngitis 462 [facility] [id number] [place] [address] 13912- 0351 Nov, [facility] [address] [address] 4[address] Nov, [facility] [address] [address] 97[address] Aug, [facility] [address] [address] Aug, [facility] [id number] [place] [address] 85810- 7499 Jun, [facility] [address], [place] [address] 25[address] Jun, [facility] [id number] [place] [address] 25680- 0167 Jun, [facility] [place] [facility] [address] [id number] [place] [address]- 2168 Jun, [facility] [place] [facility] [address] [id number] [place] [address]- 0032 Feb, [facility] [place] [facility] [address] [id number] [place] [address]- 7372 Feb, [facility] [place] [facility] [address] [id number] [place] [address]- 0309 December, [facility] [place] [facility] [address] [id number] [place] [address]- 9476 December, [facility] [place] [facility] [address] [id number] [place] [address]- 4187 December, [facility] [place] [facility] [address] [id number] [place] [address]- 6527 December, [facility] [place] [facility] [address] [id number] [place] [address]- 2716 December, [facility] [place] [facility] [address] [id number] [place] [address]- 3667 Oct, [facility] [place] [facility] [address] [id number] [place] [address]- 6387 Oct, [facility] [place] [facility] [address] [id number] [place] [address]- 1287 Sep, [facility] [place] [facility] [address] [id number] [place] [address]- 3083 Sep, [facility] [place] [facility] [address] [id number] [place] [address]- 5204 Aug, [facility] [place] [facility] [address] [id number] [place] [address]- 3700 Aug, [facility] [place] [facility] [address] [id number] [place] [address]- 9808 Jul, [facility] [place] [facility] [address] [facility] [id number] [address] 2546 Jul, [facility] [address] [id number] [address] 6[address] Jul, [facility] [address] [id number] [address] 2546 Jul, [facility] [address] [id number] [address] 4826 Jun, [facility] [address] [id number] [address] 5586 Jun, [facility] [id number] [address] 7[address] Sep, [facility] [address] [id number], [place] [address] 7[address] Mar, IMMUNIZATIONS No Known Immunizations SOCIAL HISTORY Never Assessed REASON FOR VISIT flu symptoms Fever, chills and cough for 2 days [place] PLAN OF CARE Activity Details Follow Up prn Reason: VITAL SIGNS Height 69 in 2017-08-10 Weight 141.2 lbs 2017-08-10 Temperature 97.8 degrees Fahrenheit 2017-08-10 Heart Rate 88 bpm 2017-08-10 Respiratory Rate 22 2017-08-10 BMI 20.85 kg/m2 2017-08-10 Blood pressure systolic 124 mmHg 2017-08-10 Blood pressure diastolic 80 mmHg 2017-08-10 MEDICATIONS Medication Instructions Dosage Frequency Start Date End Date Duration Status Naproxen 500 MG Orally every 12 hrs 1 tablet as needed 12h Not- Taking Bactrim DS 800-160 MG Orally Twice a day 1 tablet 12h Not-Taking Tramadol HCl 50 mg Orally every 6 hrs 1 tablet as needed 6h Mar, Not-Taking Zithromax 250 MG Orally Once a day 2 tablets on the first day, then 1 tablet daily for 4 days 24h 5 day(s) Not-Taking Clindamycin HCl 150 MG Orally every 6 hrs 2 capsules 6h 7 days Not- Taking IBU-200 200 MG Orally every 6 hrs 1 tablet with food or milk as needed 6h Not-Taking Zofran ODT 4 MG Orally every 8 hrs 1 tablet on the tongue and allow to dissolve 8h Mar, 5 days Not-Taking RESULTS Name Result Date Reference Range INFLUENZA A & B (IN HOUSE) 2017-08-10 INFLUENZA A negative INFLUENZA B negative Control + Lot # Exp date PROCEDURES Procedure Date Ordered Result Body Site INFLUENZA ASSAY W/OPTIC Aug 10, 2017 INSTRUCTIONS MEDICATIONS ADMINISTERED No Known Medications MEDICAL (GENERAL) HISTORY Type Description Date Surgical History Hysterectomy-partial 04/2013 Surgical History section 08/2011 Surgical History tubal ligation 10/2011 Surgical History scar tissue removed from csection scar 2016
--- OUTSIDE RECORDS SUMMARY | 2018-06-03 20:16 | XMS REPORT ---
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 Name Role Phone BJ BOSS Unavailable PROBLEMS Type Condition ICD9-CM Code HNO38-SX Code Onset Dates Condition Status SNOMED Code Problem Abdominal wall mass R22.2 Active 596164530 Problem Seasonal allergic rhinitis, unspecified allergic rhinitis trigger J30.2 Active 846909525 ALLERGIES Substance Reaction Event Type Date Status Latex Unknown Non Drug Allergy Aug, Active ENCOUNTERS Encounter Location Date Diagnosis [facility] [address] [address] Aug, Cough R05 and Nasopharyngitis acute J00 [facility] [address] [address] 04 Aug, 2017 Other viral agents as the cause of diseases classified elsewhere B97.89 and Acute upper respiratory infection, unspecified J06.9 [facility] [address] [address] Aug, Cough R05 and Acute nasopharyngitis J00 [facility] [address] [address] Jun, Sore throat J02.9 ; Body aches R52 and Viral syndrome B34.9 [facility] [id number] [place] [address] [id number] Jun, Dental caries K02.9 [facility] [address] [id number] May, Dental examination Z01.20 [facility] [id number] [place] [address] [id number] May, Dental examination Z01.20 [place] [id number] [place] [address] 44831- 2346 17 Mar, 2017 Acute bilateral low back pain without sciatica M54.5 and Abdominal wall mass R22.2 [facility] [address] [address] Mar, Viral gastroenteritis A08.4 [place] [address] [address]- 3863 Feb, [place] [address] [address] 8501 Feb, [place] [address] 10[address]- 8539 Feb, Right foot injury, initial encounter S99.921A [facility] [address] [place] [address]97 -6882 Jan, Sore throat J02.9 [facility] [address] [place] [address] 87927 -6387 Jan, [facility] [address] [place] [address] 77515 -5905 14 Oct, 2016 Gastroenteritis K52.9 [facility] [address] [place] [address] 82570 -2816 16 Sep, 2016 Sore throat J02.9 and Seasonal allergic rhinitis, unspecified allergic rhinitis trigger J30.2 [place] [id number] [place] [address] 60265- 2035 10 Sep, 2016 [facility] [address] [place] [address] 24792 -6446 09 Sep, 2016 Sore throat J02.9 ; Acute non-recurrent frontal sinusitis J01.10 and Allergic rhinitis, unspecified allergic rhinitis trigger, unspecified rhinitis seasonality J30.9 [facility] [address] [place] [address] 55771 -7371 Aug, Sore throat J02.9 ; Fever R50.9 ; Strep pharyngitis J02.0 and Influenza A J10.1 [facility] [id number] [place] [address] 09473 -0744 Jun, Sore throat J02.9 ; Seasonal allergic rhinitis, unspecified allergic rhinitis trigger J30.2 and Strep pharyngitis J02.0 [facility] [address] [address] Jun, [facility] [address] [address]46- 1642 Mar, Abdominal wall mass R19.00 [facility] [address] [address]- 4990 Mar, Abdominal wall pain R10.9 [facility] [address] [address]38 Jan, Examination, physical, employee Z02.89 and Screening for tuberculosis Z11.1 [facility] [address] [id number] December, Dental caries K02.9 [facility] [address] [id number] December, Dental examination Z01.20 [facility] [address] [id number] Nov, Encounter for dental examination Z01.20 [facility] [address] [id number] Nov, Dental examination V72.2 [facility] [id number] [place] [address] [id number] Nov, Dental examination Z01.20 [facility] [address] [id number] Oct, Encounter for dental examination Z01.20 [facility] [id number] [place] [address] 32450 -4379 Jul, Gastroenteritis K52.9 [facility] [address] [id number] [address] 6270 Jun, [facility] [id number] [place] [address] 41490- 5905 May, [facility] [id number] [place] [address] 01541- 8001 Mar, [facility] [id number] [place] [address] 09577- 6453 Mar, Conjunctivitis of left eye 372.30 [facility] [id number] [place] [address] 62984- 2061 Jan, Dysuria 788.1 ; Urinary tract infection, site not specified 599.0 and Acute sinusitis 461.9 [facility] [id number] [place] [address] 90003- 4715 Jan, [facility] [id number] [place] [address] 08607- 0438 Jan, Pharyngitis 462 [facility] [id number] [place] [address] 99177- 8192 Nov, [facility] [address] [place] [address] 81072- 3652 Nov, [facility] [address] [place] [address] 66165- 3385 Aug, [facility] [address] [address]- 0512 Aug, [facility] [id number] [place] [address] 17119- 2112 Jun, [facility] [address] [address]- 6381 Jun, [facility] [id number] [place] [address] 62509- 3687 Jun, [facility] [place] [facility] [address] [id number] [place] [address]- 6673 Jun, [facility] [place] [facility] [address] [id number] [place] [address]- 8198 Feb, [facility] [place] [facility] [address] [id number] [place] [address]- 1734 Feb, [facility] [place] [facility] [address] [id number] [place] [address]- 5707 December, [facility] [place] [facility] [address] [id number] [place] [address]- 1564 December, [facility] [place] [facility] [address] [id number] [place] [address]- 4442 December, [facility] [place] [facility] [address] [id number] [place] [address]- 0442 December, [facility] [place] [facility] [address] [id number] [place] [address]- 5309 December, [facility] [place] [facility] [address] [id number] [place] [address]- 2316 Oct, [facility] [place] [facility] [address] [id number] [place] [address]- 1149 Oct, [facility] [place] [facility] [address] [id number] [place] [address]- 0636 Sep, [facility] [place] [facility] [address] [id number] [place] [address]- 8128 Sep, [facility] [place] [facility] [address] [id number] [place] [address]- 3891 Aug, [facility] [place] [facility] [address] [id number] [place] [address]- 8894 Aug, [facility] [place] [facility] [address] [id number] [place] [address]- 3604 Jul, [facility] [place] [facility] [address] [id number] [address]- 7756 Jul, [facility] [address] [facility] [id number] [address]- 4036 Jul, [facility] [address] [facility] [id number] [address]- 5176 Jul, [facility] [address] [facility] [id number] [place] [address]- 6316 Jun, [facility] [address] [facility] [id number] [address]- 3566 Jun, [facility] [address] [facility] [id number] [place] [address]- 9742 Sep, [facility] [address] [facility] [id number] [address]- 4306 Mar, IMMUNIZATIONS No Known Immunizations SOCIAL HISTORY Never Assessed REASON FOR VISIT cough, chest congestion. been sick for a week. ribs hurt bilaterally from coughing. [email or web address] PLAN OF CARE Activity Details Follow Up prn Reason: VITAL SIGNS Height 69 in 2017-09-02 Weight 150.6 lbs 2017-09-02 Temperature 98.2 degrees Fahrenheit 2017-09-02 Heart Rate 84 bpm 2017-09-02 Respiratory Rate 20 2017-09-02 BMI 22.24 kg/m2 2017-09-02 Blood pressure systolic 110 mmHg 2017-09-02 Blood pressure diastolic 68 mmHg 2017-09-02 MEDICATIONS Medication Instructions Dosage Frequency Start Date End Date Duration Status Tessalon Perles 100 mg Orally Three times a day 1 capsule as needed 8h Aug, Active Naproxen 500 MG Orally every 12 hrs 1 tablet as needed 12h Not- Taking Zithromax 250 MG Orally Once a day 2 tablets on the first day, then 1 tablet daily for 4 days 24h 5 day(s) Not-Taking Clindamycin HCl 150 MG Orally every 6 hrs 2 capsules 6h 7 days Not- Taking Tramadol HCl 50 mg Orally every 6 hrs 1 tablet as needed 6h Mar, Not-Taking Bactrim DS 800-160 MG Orally Twice a day 1 tablet 12h Not-Taking IBU-200 200 MG Orally every 6 hrs 1 tablet with food or milk as needed 6h Not-Taking Zofran ODT 4 MG Orally every 8 hrs 1 tablet on the tongue and allow to dissolve 8h Mar, 5 days Not-Taking RESULTS No Results PROCEDURES No Known procedures INSTRUCTIONS MEDICATIONS ADMINISTERED No Known Medications MEDICAL (GENERAL) HISTORY Type Description Date Surgical History Hysterectomy-partial 04/2013 Surgical History section 08/2011 Surgical History tubal ligation 10/2011 Surgical History scar tissue removed from csection scar 2016
--- OUTSIDE RECORDS SUMMARY | 2018-06-03 20:16 | XMS REPORT ---
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 [address] [address] Aug, Cough R05 and Nasopharyngitis acute J00 [facility] [address] [address] Aug, Other viral agents as the cause of diseases classified elsewhere B97.89 and Acute upper respiratory infection, unspecified J06.9 [facility] [id number] [place] [address]11 Aug, Cough R05 and Acute nasopharyngitis J00 [facility] [address] [address] Jun, Sore throat J02.9 ; Body aches R52 and Viral syndrome B34.9 [facility] [address] [id number] Jun, Dental caries K02.9 [facility] [address] [id number] May, Dental examination Z01.20 [facility] [address] [id number] May, Dental examination Z01.20 [facility] [place] [id number] [place] [address]691[address] 7594 Mar, Acute bilateral low back pain without sciatica M54.5 and Abdominal wall mass R22.2 [facility] [id number] [place] [address]9476 Mar, Viral gastroenteritis A08.4 [place] [address] [address] Feb, [place] [address] [address] Feb, [place] [address] [address] Feb, Right foot injury, initial encounter S99.921A [facility] [address] [place] [address]78 -8047 Jan, Sore throat J02.9 [facility] [address] [place] [address] 6[address]32 -[address]83 Jan, [facility] [address] [address] 14 Oct, 2016 Gastroenteritis K52.9 [facility] [address] [place] [address] 94203 -7441 16 Sep, 2016 Sore throat J02.9 and Seasonal allergic rhinitis, unspecified allergic rhinitis trigger J30.2 [place] [id number] [place] [address] 89550- 8722 10 Sep, 2016 [facility] [address] [place] [address] 07565 -2860 09 Sep, 2016 Sore throat J02.9 ; Acute non-recurrent frontal sinusitis J01.10 and Allergic rhinitis, unspecified allergic rhinitis trigger, unspecified rhinitis seasonality J30.9 [facility] [address] [place] [address] 32959 [address]5942 Aug, Sore throat J02.9 ; Fever R50.9 ; Strep pharyngitis J02.0 and Influenza A J10.1 [facility] [id number] [place] [address] 86048 -6341 Jun, Sore throat J02.9 ; Seasonal allergic rhinitis, unspecified allergic rhinitis trigger J30.2 and Strep pharyngitis J02.0 [facility] [address] 564[address] Jun, [facility] [place] [address] [address] Mar, Abdominal wall mass R19.00 [facility] [place] [address] 85453[address] 2981 Mar, Abdominal wall pain R10.9 [facility] [place] [address] 28[address] Jan, Examination, physical, employee Z02.89 and Screening for tuberculosis Z11.1 [facility] [address] [id number] December, Dental caries K02.9 [facility] [address] [id number] December, Dental examination Z01.20 [facility] [address] [id number] Nov, Encounter for dental examination Z01.20 [facility] [address] [id number] Nov, Dental examination V72.2 [facility] [address] [id number] Nov, Dental examination Z01.20 [facility] [address] [id number] Oct, Encounter for dental examination Z01.20 [facility] [address] 5[address]38 Jul, Gastroenteritis K52.9 [facility] [place] [address] [address] 9[address] Jun, [facility] [place] [address] [address] 14[address] May, [facility] [place] [address] [place] [address] 25455- 7206 Mar, [facility] [place] [id number] [place] [address] 822412- 6341 Mar, Conjunctivitis of left eye 372.30 [facility] [place] [id number] [place] [address] 260631- 4690 Jan, Dysuria 788.1 ; Urinary tract infection, site not specified 599.0 and Acute sinusitis 461.9 [facility] [place] [id number] [place] [address] 93135- 9250 Jan, [facility] [place] [address] [address] 8[address] Jan, Pharyngitis 462 [facility] [place] [address] [address] 98[address] 14 Nov, 2014 [facility] [place] [address] [address] 75[address] Nov, [facility] [place] [address] [address] 9[address] Aug, [facility] [place] [address] [address] Aug, [facility] [place] [address] [address] Jun, [facility] [place] [address] [address] Jun, [facility] [place] [address] [address] 21[address] Jun, [facility] [place] [facility] [address] [id number] [place] [address]- 7[address] Jun, [facility] [place] [facility] [address] [id number] [place] [address]- 7016 Feb, [facility] [place] [facility] [address] [id number] [place] [address]- 7770 Feb, [facility] [place] [facility] [address] [id number] [place] [address]- 8977 December, [facility] [place] [facility] [address] [id number] [place] [address] 3624 December, [facility] [place] [facility] [address] [id number] [place] [address]- 8438 December, [facility] [place] [facility] [address] [id number] [place] [address]- 4608 December, [facility] [place] [facility] [address] [id number] [place] [address]- 8367 December, [facility] [place] [facility] [address] [id number] [place] [address]- 2892 Oct, [facility] [place] [facility] [address] [id number] [place] [address]- 6732 Oct, [facility] [place] [facility] [address] [id number] [place] [address]- 0034 Sep, [facility] [place] [facility] [address] [id number] [place] [address]- 6153 Sep, [facility] [place] [facility] [address] [id number] [place] [address]- 4767 Aug, [facility] [place] [facility] [address] [id number] [place] [address]- 9146 Aug, [facility] [place] [facility] [address] [id number] [place] [address]- 7532 Jul, [facility] [place] [facility] [address] [facility] [id number] [address] Jul, [facility] [place] [address] [facility] [address] [id number] [address] 2546 Jul, [facility] [place] [id number] [address] 2546 Jul, [facility] [place] [address] [facility] [address] [id number] [address] 25[address] Jun, [facility] [place] [address] [id number] [address]- 2546 Jun, [facility] [place] [address] [facility] [address] [id number] [address] 2546 Sep, [facility] [place] [address] [id number] [address]- 2546 Mar, IMMUNIZATIONS No Known Immunizations SOCIAL HISTORY Never Assessed REASON FOR VISIT fatigue/nausea for the last couple days. Just wants to go home and nap after work. [facility] PLAN OF CARE Activity Details Follow Up prn Reason: VITAL SIGNS Height 69 in 2017-03-11 Weight 150.4 lbs 2017-03-11 Temperature 98.1 degrees Fahrenheit 2017-03-11 Heart Rate 76 bpm 2017-03-11 Respiratory Rate 18 2017-03-11 BMI 22.21 kg/m2 2017-03-11 Blood pressure systolic 104 mmHg 2017-03-11 Blood pressure diastolic 70 mmHg 2017-03-11 MEDICATIONS Medication Instructions Dosage Frequency Start Date End Date Duration Status Zofran ODT 4 MG Orally every 8 hrs 1 tablet on the tongue and allow to dissolve 8h Mar, 5 days Active RESULTS No Results PROCEDURES No Known procedures INSTRUCTIONS MEDICATIONS ADMINISTERED No Known Medications MEDICAL (GENERAL) HISTORY Type Description Date Surgical History Hysterectomy-partial 04/2013 Surgical History section 08/2011 Surgical History tubal ligation 10/2011 Surgical History scar tissue removed from csection scar 2015
--- OUTSIDE RECORDS SUMMARY | 2018-06-03 20:16 | XMS REPORT ---
Author Author SUJEY MEZA [facility] Address [address] [place] [address] Care Team Providers Care Banjo Repairer Name Role Phone SUJEY MEZA Unavailable PROBLEMS Type Condition ICD9-CM Code XYT30-MK Code Onset Dates Condition Status SNOMED Code Problem Abdominal wall mass R22.2 Active 697850668 Problem Seasonal allergic rhinitis, unspecified allergic rhinitis trigger J30.2 Active 909118505 ALLERGIES Substance Reaction Event Type Date Status Latex Unknown Non Drug Allergy Sep, Active SOCIAL HISTORY Never Assessed PLAN OF CARE Activity Details Follow Up prn Reason: VITAL SIGNS Height 69 in 2016-09-24 Weight 169.8 lbs 2016-09-24 Temperature 98.8 degrees Fahrenheit 2016-09-24 Heart Rate 72 bpm 2016-09-24 Respiratory Rate 18 2016-09-24 BMI 25.07 kg/m2 2016-09-24 Blood pressure systolic 120 mmHg 2016-09-24 Blood pressure diastolic 70 mmHg 2016-09-24 MEDICATIONS Medication Instructions Dosage Frequency Start Date End Date Duration Status Cetirizine HCl 10 mg Orally Once a day 1 tablet 24h 28 Jun, 2016 Active Fluticasone Propionate 50 MCG/ACT Nasally Twice a day 1 spray in each nostril 12h 16 Sep, 2016 30 day(s) Active RESULTS Name Result Date Reference Range MONO TEST (IN HOUSE) 2016-09-24 RESULTS negative Control + Lot # [id number] Exp date 2017-05 PROCEDURES Procedure Date Ordered Result Body Site HETEROPHILE ANTIBODIES Sep 24, 2016 IMMUNIZATIONS No Known Immunizations MEDICAL (GENERAL) HISTORY Type Description Date Surgical History Hysterectomy-partial 04/2013 Surgical History section 08/2011 Surgical History tubal ligation 10/2011 Surgical History scar tissue removed from csection scar 2015
--- OUTSIDE RECORDS SUMMARY | 2018-06-03 20:16 | XMS REPORT ---
Author Author GANESH MANUEL Organization [facility] Address [address] [place] [address] Care Team Providers Care Professor Of Religion Name Role Phone GANESH MANUEL Unavailable PROBLEMS Type Condition ICD9-CM Code IDY28-XO Code Onset Dates Condition Status SNOMED Code Problem Abdominal wall mass R22.2 Active 049840603 Problem Seasonal allergic rhinitis, unspecified allergic rhinitis trigger J30.2 Active 749118073 ALLERGIES Substance Reaction Event Type Date Status Latex Unknown Non Drug Allergy Sep, Active SOCIAL HISTORY Never Assessed PLAN OF CARE Activity Details Follow Up prn Reason: VITAL SIGNS Height 69 in 2016-09-17 Weight 167.6 lbs 2016-09-17 Temperature 99.6 degrees Fahrenheit 2016-09-17 Heart Rate 88 bpm 2016-09-17 Respiratory Rate 20 2016-09-17 BMI 24.75 kg/m2 2016-09-17 Blood pressure systolic 130 mmHg 2016-09-17 Blood pressure diastolic 78 mmHg 2016-09-17 MEDICATIONS Medication Instructions Dosage Frequency Start Date End Date Duration Status PredniSONE 20 MG Orally Once a day 2 tablet 24h Sep, Sep, 5 days Active Cetirizine HCl 10 mg Orally Once a day 1 tablet 24h Jun, Active RESULTS Name Result Date Reference Range STREP A (IN HOUSE) 2016-09-17 STREP A negative Control + Lot # [id number] Exp date december 24 PROCEDURES Procedure Date Ordered Result Body Site STREP A ASSAY W/OPTIC Sep 17, 2016 IMMUNIZATIONS No Known Immunizations MEDICAL (GENERAL) HISTORY Type Description Date Surgical History Hysterectomy-partial 04/2013 Surgical History section 08/2011 Surgical History tubal ligation 10/2011 Surgical History scar tissue removed from csection scar 2015
--- OUTSIDE RECORDS SUMMARY | 2018-06-03 20:16 | XMS REPORT ---
Author Author YANIV BROWNLEE [facility] Address [address] [place] [address] Care Team Providers Care Receptionist Clerk Name Role Phone YANIV BROWNLEE Unavailable PROBLEMS Type Condition ICD9-CM Code QZU42-JV Code Onset Dates Condition Status SNOMED Code Problem Abdominal wall mass R22.2 Active 675117449 Problem Seasonal allergic rhinitis, unspecified allergic rhinitis trigger J30.2 Active 573483279 ALLERGIES No Information SOCIAL HISTORY Never Assessed PLAN OF CARE VITAL SIGNS MEDICATIONS Unknown Medications RESULTS No Results PROCEDURES No Known procedures IMMUNIZATIONS No Known Immunizations MEDICAL (GENERAL) HISTORY Type Description Date Surgical History Hysterectomy-partial 04/2013 Surgical History section 08/2011 Surgical History tubal ligation 10/2011 Surgical History scar tissue removed from csection scar 2016
--- OUTSIDE RECORDS SUMMARY | 2018-06-03 20:17 | XMS REPORT ---
Author Author YANIV BROWNLEE [facility] Address [address] [place] [address] Care Team Providers Care Imaging Manager Name Role Phone RAYSHAWNMYRONYANIV Unavailable PROBLEMS Type Condition ICD9-CM Code YEN29-OI Code Onset Dates Condition Status SNOMED Code Problem Abdominal wall mass R22.2 Active 391242798 Problem Seasonal allergic rhinitis, unspecified allergic rhinitis trigger J30.2 Active 004551195 ALLERGIES No Information ENCOUNTERS Encounter Location Date Diagnosis [facility] [address] [address] Aug, Cough R05 and Nasopharyngitis acute J00 [facility] [address] [place] [address]37 -9501 Aug, Other viral agents as the cause of diseases classified elsewhere B97.89 and Acute upper respiratory infection, unspecified J06.9 [facility] [address] [place] [address]54 [address]3423 Aug, Cough R05 and Acute nasopharyngitis J00 [facility] [address] [place] [id number] [place] [address]32 -1813 Jun, Sore throat J02.9 ; Body aches R52 and Viral syndrome B34.9 [facility] [id number] [place] [address] [id number] Jun, Dental caries K02.9 [facility] [id number] [place] [address] [id number] May, Dental examination Z01.20 [facility] [id number] [place] [address] [id number] May, Dental examination Z01.20 [facility] [id number] [place] [address] 82429- 9927 Mar, Acute bilateral low back pain without sciatica M54.5 and Abdominal wall mass R22.2 [facility] [address] [place] [id number] [place] [address] 61484 -2199 Mar, Viral gastroenteritis A08.4 [place] [id number] [place] [address] 04548- 7361 Feb, [facility] [address] [address]22 Feb, [place] [address] [address]- 5538 Feb, Right foot injury, initial encounter S99.921A [facility] [address] [place] [address] 04872 -6951 Jan, Sore throat J02.9 [facility] [address] [place] [address] 05591 -7753 Jan, [facility] [address] [place] [address] 46275 -7144 14 Oct, 2016 Gastroenteritis K52.9 [facility] [address] [place] [id number] [place] [address] 89389 -0518 16 Sep, 2016 Sore throat J02.9 and Seasonal allergic rhinitis, unspecified allergic rhinitis trigger J30.2 [facility] [id number] [place] [address] 99886- 4226 10 Sep, 2016 [facility] [address] [place] [id number] [place] [address] 74548 -3394 09 Sep, 2016 Sore throat J02.9 ; Acute non-recurrent frontal sinusitis J01.10 and Allergic rhinitis, unspecified allergic rhinitis trigger, unspecified rhinitis seasonality J30.9 [facility] [address] [place] [id number] [place] [address] 20909 -0260 Aug, Sore throat J02.9 ; Fever R50.9 ; Strep pharyngitis J02.0 and Influenza A J10.1 [facility] [id number] [place] [address] 71721 -1461 Jun, Sore throat J02.9 ; Seasonal allergic rhinitis, unspecified allergic rhinitis trigger J30.2 and Strep pharyngitis J02.0 [facility] [address] 14086 -0880 Jun, [facility] [address] 17331- 0263 Mar, Abdominal wall mass R19.00 [facility] [address] [address]- 6671 Mar, Abdominal wall pain R10.9 [facility] [address] [address]- 7945 Jan, Examination, physical, employee Z02.89 and Screening for tuberculosis Z11.1 [facility] [address] [id number] December, Dental caries K02.9 [facility] [address] [id number] December, Dental examination Z01.20 [facility] [address] [id number] Nov, Encounter for dental examination Z01.20 [facility] [id number] [place] [address] [id number] Nov, Dental examination V72.2 [facility] [id number] [place] [address] [id number] Nov, Dental examination Z01.20 [facility] [address] [id number] Oct, Encounter for dental examination Z01.20 [facility] [id number] [place] [address] 64424 -1041 Jul, Gastroenteritis K52.9 [facility] [id number] [address]- 44[address] Jun, [facility] [address] [address]- 8186 May, [facility] [address] [address]- 6780 Mar, [facility] [address] [place] [address] 78356- 0606 Mar, Conjunctivitis of left eye 372.30 [facility] [address] [address]- 5490 Jan, Dysuria 788.1 ; Urinary tract infection, site not specified 599.0 and Acute sinusitis 461.9 [facility] [address] [address]- 8409 Jan, [facility] [address] [address]- 3835 Jan, Pharyngitis 462 [facility] [address] [address]- 5791 Nov, [facility] [address] [address]- 4074 Nov, [facility] [address] [id number] [address]- 8506 Aug, [facility] [id number] [address]- 0898 Aug, [facility] [id number] [address]- 7121 Jun, [facility] [address] [id number] [address]- 1365 Jun, [facility] [address] [id number] [address]- 1788 Jun, [facility] [address] [facility] [id number] [place] [address]- 4499 Jun, [facility] [address] [id number] [place] [address]- 3097 Feb, [facility] [place] [facility] [address] [id number] [place] [address]- 1530 Feb, [facility] [address] [id number] [place] [address]- 0813 December, [facility] [place] [facility] [address] [id number] [place] [address]- 8528 December, [facility] [place] [facility] [address] [id number] [place] [address]- 8844 December, [facility] [place] [facility] [address] [id number] [place] [address]- 6383 December, [facility] [place] [facility] [address] [id number] [place] [address]- 5818 December, [facility] [place] [facility] [address] [id number] [place] [address]- 3225 Oct, [facility] [place] [facility] [address] [id number] [place] [address]- 6465 Oct, [facility] [place] [facility] [address] [id number] [place] [address]- 3309 Sep, [facility] [place] [facility] [address] [id number] [place] [address]- 7777 Sep, [facility] [place] [facility] [address] [id number] [place] [address]- 2074 Aug, [facility] [place] [facility] [address] [id number] [place] [address]- 1773 Aug, [facility] [place] [facility] [address] [id number] [place] [address]- 1976 Jul, [facility] [place] [facility] [address] [id number] [place] [address]- 3952 Jul, [facility] [address] [facility] [id number] [address]- 0[address] Jul, [facility] [address] [address]- 2546 Jul, [facility] [address] [address]- 2546 Jun, [facility] [address] [address]- 2546 Jun, [facility] [address] [id number] [address]- 7211 Sep, [facility] [id number] [address] Mar, IMMUNIZATIONS No Known Immunizations SOCIAL HISTORY Never Assessed REASON FOR VISIT PLAN OF CARE VITAL SIGNS MEDICATIONS No Known Medications RESULTS No Results PROCEDURES No Known procedures INSTRUCTIONS MEDICATIONS ADMINISTERED No Known Medications MEDICAL (GENERAL) HISTORY Type Description Date Surgical History Hysterectomy-partial 04/2013 Surgical History section 08/2011 Surgical History tubal ligation 10/2011 Surgical History scar tissue removed from csection scar 2016
--- OUTSIDE RECORDS SUMMARY | 2018-06-03 20:17 | XMS REPORT ---
Author Author DAVID PEARSON [facility] Address Unknown Care Team Providers Care Coat Hanger Shaper Machine Operator Name Role Phone DAVID PEARSON Unavailable PROBLEMS Type Condition ICD9-CM Code WIM13-CZ Code Onset Dates Condition Status SNOMED Code Problem Abdominal wall mass R22.2 Active 863589699 Problem Seasonal allergic rhinitis, unspecified allergic rhinitis trigger J30.2 Active [id number] ALLERGIES Substance Reaction Event Type Date Status Latex Unknown Non Drug Allergy May, Active ENCOUNTERS Encounter Location Date Diagnosis [facility] [address] [address] Aug, Cough R05 and Nasopharyngitis acute J00 [facility] [address] [address] Aug, Other viral agents as the cause of diseases classified elsewhere B97.89 and Acute upper respiratory infection, unspecified J06.9 [facility] [address] [address] Aug, Cough R05 and Acute nasopharyngitis J00 [facility] [address] [address] Jun, Sore throat J02.9 ; Body aches R52 and Viral syndrome B34.9 [facility] [id number] [place] [address] [id number] Jun, Dental caries K02.9 [facility] [id number] [place] [address] [id number] May, Dental examination Z01.20 [facility] [id number] [place] [address] [id number] May, Dental examination Z01.20 [facility] [id number] [place] [address] 8[address]96[address] 3518 Mar, Acute bilateral low back pain without sciatica M54.5 and Abdominal wall mass R22.2 [facility] [id number] [place] [address]1436 Mar, Viral gastroenteritis A08.4 [place] [id number] [place] [address]16- 7494 Feb, [facility] [address] [address] Feb, [place] [address] [address] Feb, Right foot injury, initial encounter S99.921A [facility] [address] [place] [address] -1567 Jan, Sore throat J02.9 [facility] [address] [place] [address] 28[address] -7117 Jan, [facility] [address] [place] [address] 90649 -5798 14 Oct, 2016 Gastroenteritis K52.9 [facility] [address] [place] [address] 20176 -9805 16 Sep, 2016 Sore throat J02.9 and Seasonal allergic rhinitis, unspecified allergic rhinitis trigger J30.2 [facility] [id number] [place] [address] 90958- 0869 10 Sep, 2016 [facility] [address] [place] [id number] [place] [address] 09388 -9210 09 Sep, 2016 Sore throat J02.9 ; Acute non-recurrent frontal sinusitis J01.10 and Allergic rhinitis, unspecified allergic rhinitis trigger, unspecified rhinitis seasonality J30.9 [facility] [address] [place] [id number] [place] [address] 0[address]93 Aug, Sore throat J02.9 ; Fever R50.9 ; Strep pharyngitis J02.0 and Influenza A J10.1 [facility] [id number] [place] [address] -4142 Jun, Sore throat J02.9 ; Seasonal allergic rhinitis, unspecified allergic rhinitis trigger J30.2 and Strep pharyngitis J02.0 [facility] [address] [address] Jun, [facility] [address] [address] 6[address] Mar, Abdominal wall mass R19.00 [facility] [address] [address] 6474 Mar, Abdominal wall pain R10.9 [facility] [address] [address] Jan, Examination, physical, employee Z02.89 and Screening for tuberculosis Z11.1 [facility] [id number] [place] [address] [id number] December, Dental caries K02.9 [facility] [address] [id number] December, Dental examination Z01.20 [facility] [address] [id number] Nov, Encounter for dental examination Z01.20 [facility] [id number] [place] [address] [id number] Nov, Dental examination V72.2 [facility] [id number] [place] [address] [id number] Nov, Dental examination Z01.20 [facility] [address] [id number] Oct, Encounter for dental examination Z01.20 [facility] [id number] [place] [address]14 -0949 Jul, Gastroenteritis K52.9 [facility] [address] [address] 6[address] Jun, [facility] [address] [address] 9[address] May, [facility] [address] [address] 25[address] Mar, [facility] [id number] [address] 1586 Mar, Conjunctivitis of left eye 372.30 [facility] [address] [address] Jan, Dysuria 788.1 ; Urinary tract infection, site not specified 599.0 and Acute sinusitis 461.9 [facility] [address] [address] 0[address] Jan, [facility] [address] [address] 95[address] Jan, Pharyngitis 462 [facility] [address] [address] 1703 Nov, [facility] [address] [address] 29[address] Nov, [facility] [address] [address] 48[address] Aug, [facility] [address] [address] 9[address] Aug, [facility] [address] [address] 34[address] Jun, [facility] [address] [address] 04[address] Jun, [facility] [id number] [address] 5928 Jun, [facility] [address] [id number] [address] 7397 Jun, [facility] [place] [facility] [address] [id number] [place] [address]- 36[address] Feb, [facility] [place] [facility] [address] [id number] [place] [address]- 7167 Feb, [facility] [place] [facility] [address] [id number] [place] [address]- 6784 December, [facility] [place] [facility] [address] [id number] [place] [address]- 8002 December, [facility] [place] [facility] [address] [id number] [place] [address]- 3541 December, [facility] [place] [facility] [address] [id number] [place] [address]- 1036 December, [facility] [place] [facility] [address] [id number] [place] [address]- 2705 December, [facility] [place] [facility] [address] [id number] [place] [address]- 6983 Oct, [facility] [place] [facility] [address] [id number] [place] [address]- 0270 Oct, [facility] [place] [facility] [address] [id number] [place] [address]- 4543 Sep, [facility] [place] [facility] [address] [id number] [place] [address]- 9151 Sep, [facility] [place] [facility] [address] [id number] [place] [address]- 6959 Aug, [facility] [place] [facility] [address] [id number] [place] [address]- 8626 Aug, [facility] [place] [facility] [address] [id number] [place] [address]- 6666 Jul, [facility] [place] [facility] [address] [id number] [place] [address]- 4808 Jul, [facility] [address] [facility] [id number] [address] 4[address] Jul, [facility] [address] [id number] [address]- 2546 Jul, [facility] [address] [facility] [id number] [address]- 2546 Jun, [facility] [address] [address]- 2546 Jun, [facility] [address] [facility] [id number] [address]- 8112 Sep, [facility] [address] [id number] [address]- 8286 Mar, IMMUNIZATIONS No Known Immunizations SOCIAL HISTORY Never Assessed REASON FOR VISIT CHET PLAN OF CARE Activity Details Follow Up prn Reason:endo and crown VITAL SIGNS Height 69 in 2017-06-02 Blood pressure systolic 129 mmHg 2017-06-02 Blood pressure diastolic 89 mmHg 2017-06-02 MEDICATIONS No Known Medications RESULTS No Results PROCEDURES Procedure Date Ordered Result Body Site LTD ORAL EVALUATION - PROBLEM FOCUS Jun 02, 2017 INTRAORL-PERIAPICAL 1 FILM 47198 Jun 02, 2017 BITEWING - SINGLE FILM Jun 02, 2017 INSTRUCTIONS MEDICATIONS ADMINISTERED No Known Medications MEDICAL (GENERAL) HISTORY Type Description Date Surgical History Hysterectomy-partial 04/2013 Surgical History section 08/2011 Surgical History tubal ligation 10/2011 Surgical History scar tissue removed from csection scar 2016
--- OUTSIDE RECORDS SUMMARY | 2018-06-03 20:17 | XMS REPORT ---
Author Author YANIV BROWNLEE [facility] Address [address] [place] [address] Care Team Providers Care Glue Clamp Operator Name Role Phone RAYSHAWNMYRONYANIV Unavailable PROBLEMS Type Condition ICD9-CM Code IPQ40-IX Code Onset Dates Condition Status SNOMED Code Problem Abdominal wall mass R22.2 Active 078204169 Problem Seasonal allergic rhinitis, unspecified allergic rhinitis trigger J30.2 Active 849554101 ALLERGIES No Information ENCOUNTERS Encounter Location Date Diagnosis [facility] [address] [address] Aug, Cough R05 and Nasopharyngitis acute J00 [facility] [address] [place] [place] [address] Aug, Other viral agents as the cause of diseases classified elsewhere B97.89 and Acute upper respiratory infection, unspecified J06.9 [facility] [address] [place] [address]150 Aug, Cough R05 and Acute nasopharyngitis J00 [facility] [address] [place] [id number] [place] [address] -5490 Jun, Sore throat J02.9 ; Body aches R52 and Viral syndrome B34.9 [facility] [id number] [place] [address] [id number] Jun, Dental caries K02.9 [facility] [id number] [place] [address] [id number] May, Dental examination Z01.20 [facility] [id number] [place] [address] [id number] May, Dental examination Z01.20 [facility] [id number] [place] [address]275- 2095 Mar, Acute bilateral low back pain without sciatica M54.5 and Abdominal wall mass R22.2 [facility] [address] [place] [id number] [place] [address] -0704 Mar, Viral gastroenteritis A08.4 [place] [id number] [place] [address]7037- 5936 Feb, [facility] [address] [address] Feb, [place] [address] [address]60 Feb, Right foot injury, initial encounter S99.921A [facility] [address] [place] [address]61 [address]4251 Jan, Sore throat J02.9 [facility] [address] [place] [address]60 -2929 Jan, [facility] [address] [place] [address] 61990 -4653 14 Oct, 2016 Gastroenteritis K52.9 [facility] [address] [place] [id number] [place] [address] 38834 -1344 16 Sep, 2016 Sore throat J02.9 and Seasonal allergic rhinitis, unspecified allergic rhinitis trigger J30.2 [facility] [id number] [place] [address] 88049- 2660 10 Sep, 2016 [facility] [address] [place] [address] [place] [address] 05726 -4077 09 Sep, 2016 Sore throat J02.9 ; Acute non-recurrent frontal sinusitis J01.10 and Allergic rhinitis, unspecified allergic rhinitis trigger, unspecified rhinitis seasonality J30.9 [facility] [address] [place] [address] [place] [address] 14968 -7965 Aug, Sore throat J02.9 ; Fever R50.9 ; Strep pharyngitis J02.0 and Influenza A J10.1 [facility] [id number] [place] [address] 81194 -7178 Jun, Sore throat J02.9 ; Seasonal allergic rhinitis, unspecified allergic rhinitis trigger J30.2 and Strep pharyngitis J02.0 [facility] [address] [address] Jun, [facility] [address] [address] 3347 Mar, Abdominal wall mass R19.00 [facility] [address] [address]- 5734 Mar, Abdominal wall pain R10.9 [facility] [address] [address]- 4758 Jan, Examination, physical, employee Z02.89 and Screening for tuberculosis Z11.1 [facility] [address] [id number] December, Dental caries K02.9 [facility] [address] [id number] December, Dental examination Z01.20 [facility] [address] [id number] Nov, Encounter for dental examination Z01.20 [facility] [id number] [place] [address] [id number] Nov, Dental examination V72.2 [facility] [id number] [place] [address] [id number] Nov, Dental examination Z01.20 [facility] [address] [id number] Oct, Encounter for dental examination Z01.20 [facility] [id number] [place] [address]39 -4890 Jul, Gastroenteritis K52.9 [facility] [id number] [address]- 2457 Jun, [facility] [address], [place] [address]- 4[address] May, [facility] [address], [place] [address]- 4586 Mar, [facility] [address] [place] [address] 03781- 3097 Mar, Conjunctivitis of left eye 372.30 [facility] [address] [address]- 9552 Jan, Dysuria 788.1 ; Urinary tract infection, site not specified 599.0 and Acute sinusitis 461.9 [facility] [address], [place] [address]- 2450 Jan, [facility] [address], [place] [address]- 7197 Jan, Pharyngitis 462 [facility] [address], [place] [address]- 6069 Nov, [facility] [address], [place] [address]- 8911 Nov, [facility] [id number], [place] [address]- 2528 Aug, [facility] [id number], [place] [address]- 0515 Aug, [facility] [id number], [place] [address]- 7293 Jun, [facility] [id number] [address]- 3931 Jun, [facility] [id number] [address]- 1299 Jun, [facility] [address] [facility] [id number] [place] [address]- 9945 Jun, [facility] [address] [id number] [place] [address]- 3173 Feb, [facility] [place] [facility] [address] [id number] [place] [address]- 9605 Feb, [facility] [address] [id number] [place] [address]- 4024 December, [facility] [place] [facility] [address] [id number] [place] [address]- 7590 December, [facility] [place] [facility] [address] [id number] [place] [address]- 2507 December, [facility] [place] [facility] [address] [id number] [place] [address]- 4893 December, [facility] [place] [facility] [address] [id number] [place] [address]- 7333 December, [facility] [place] [facility] [address] [id number] [place] [address]- 3088 Oct, [facility] [place] [facility] [address] [id number] [place] [address]- 5240 Oct, [facility] [place] [facility] [address] [id number] [place] [address]- 8630 Sep, [facility] [place] [facility] [address] [id number] [place] [address]- 4491 Sep, [facility] [place] [facility] [address] [id number] [place] [address]- 0298 Aug, [facility] [place] [facility] [address] [id number] [place] [address]- 6946 Aug, [facility] [place] [facility] [address] [id number] [place] [address]- 4776 Jul, [facility] [place] [facility] [address] [id number] [place] [address]- 7572 Jul, [facility] [address] [facility] [id number] [address]- 7216 Jul, [facility] [address], [place] [address] 2546 Jul, [facility] [id number] [address]- 2546 Jun, [facility] [address] [address]- 2546 Jun, [facility] [id number] [address]- 3400 Sep, [facility] [address] [id number], [place] [address]- 5452 Mar, IMMUNIZATIONS No Known Immunizations SOCIAL HISTORY Never Assessed REASON FOR VISIT Work release request PLAN OF CARE VITAL SIGNS MEDICATIONS No Known Medications RESULTS No Results PROCEDURES No Known procedures INSTRUCTIONS MEDICATIONS ADMINISTERED No Known Medications MEDICAL (GENERAL) HISTORY Type Description Date Surgical History Hysterectomy-partial 04/2013 Surgical History section 08/2011 Surgical History tubal ligation 10/2011 Surgical History scar tissue removed from csection scar 2016
--- OUTSIDE RECORDS SUMMARY | 2018-06-03 20:18 | XMS REPORT | Continuity of Care Document ---
Author Author [facility] Address Unknown Phone Unavailable Allergies Active Description Code Type Severity Reaction Onset Reported/Identified Relationship to Patient Clinical Status Yes No Known Drug Allergies [id number] Drug Allergy Unknown N/A 04/30/2008 Yes NKDA NKDA Mild N/ A 11/10/2008 Yes latex [id number] Drug Allergy Unknown N/A 04/21/2016 Medications There is no data. Problems Date Dx Coded Attending Type Code Diagnosis Diagnosed By 02/13/2008 ANDRES SWEENEY DO 682.9 CELLULITIS AND ABSCESS OF UNSPECIFIED SITES 02/13/2008 ANDRES SWEENEY DO 919.4 INSECT BITE NONVENOMOUS OF OTHER MULTIPLE AND UNSPECIFIED SITES WITHOUT INFECTION 02/13/2008 EUGENE DOWNING APRN R 682.9 CELLULITIS AND ABSCESS OF UNSPECIFIED SITES 02/13/2008 EUGENE DOWNING APRN R 919.4 INSECT BITE NONVENOMOUS OF OTHER MULTIPLE AND UNSPECIFIED SITES WITHOUT INFECTION 02/13/2008 ARIAN BAEZ APRN 682.9 CELLULITIS AND ABSCESS OF UNSPECIFIED SITES 02/13/2008 GURU BAEZ APRNYL A 919.4 INSECT BITE NONVENOMOUS OF OTHER MULTIPLE AND UNSPECIFIED SITES WITHOUT INFECTION 02/13/2008 NASRA JACOBSON APRN R 682.9 CELLULITIS AND ABSCESS OF UNSPECIFIED SITES 02/13/2008 DESTINY JACOBSON APRNINA R 919.4 INSECT BITE NONVENOMOUS OF OTHER MULTIPLE AND UNSPECIFIED SITES WITHOUT INFECTION 02/13/2008 ANDRES SWEENEY DO 682.9 CELLULITIS AND ABSCESS OF UNSPECIFIED SITES 02/13/2008 ANDRES SWEENEY DO 919.4 INSECT BITE NONVENOMOUS OF OTHER MULTIPLE AND UNSPECIFIED SITES WITHOUT INFECTION 02/13/2008 ANDRES SWEENEY DO 682.9 CELLULITIS AND ABSCESS OF UNSPECIFIED SITES 02/13/2008 ANDRES SWEENEY DO 919.4 INSECT BITE NONVENOMOUS OF OTHER MULTIPLE AND UNSPECIFIED SITES WITHOUT INFECTION 02/13/2008 SWEENEY DO, ANDRES K 682.9 CELLULITIS AND ABSCESS OF UNSPECIFIED SITES 02/13/2008 SWEENEY DO, ANDRES K 919.4 INSECT BITE NONVENOMOUS OF OTHER MULTIPLE AND UNSPECIFIED SITES WITHOUT INFECTION 02/13/2008 YANIV BROWNLEE MD 682.9 CELLULITIS AND ABSCESS OF UNSPECIFIED SITES 02/13/2008 YANIV BROWNLEE MD 919.4 INSECT BITE NONVENOMOUS OF OTHER MULTIPLE AND UNSPECIFIED SITES WITHOUT INFECTION 05/07/2008 SWEENEY DO, ANDRES K 919.0 ABRASION UNSPECIFIED 05/07/2008 LINA DOWNING APRNIA R 919.0 ABRASION UNSPECIFIED 05/07/2008 GURU BAEZ APRNYL A 919.0 ABRASION UNSPECIFIED 05/07/2008 DESTINY JACOBSON APRNINA R 919.0 ABRASION UNSPECIFIED 05/07/2008 SWEENEY DO, ANDRES K 919.0 ABRASION UNSPECIFIED 05/07/2008 SWEENEY DO, ANDRES K 919.0 ABRASION UNSPECIFIED 05/07/2008 SWEENEY DO, ANDRES K 919.0 ABRASION UNSPECIFIED 05/07/2008 YANIV BROWNLEE MD 919.0 ABRASION UNSPECIFIED 11/15/2008 SWEENEY DO, ANDRES K 724.5 BACKACHE UNSPECIFIED 11/15/2008 LINA DOWNING APRNIA R 724.5 BACKACHE UNSPECIFIED 11/15/2008 GURU BAEZ APRNYL A 724.5 BACKACHE UNSPECIFIED 11/15/2008 DESTINY JACOBSON APRNINA R 724.5 BACKACHE UNSPECIFIED 11/15/2008 SWEENEY DO, ANDRES K 724.5 BACKACHE UNSPECIFIED 11/15/2008 SWEENEY DO, ANDRES K 724.5 BACKACHE UNSPECIFIED 11/15/2008 SWEENEY DO, ANDRES K 724.5 BACKACHE UNSPECIFIED 11/15/2008 YANIV BROWNLEE MD 724.5 BACKACHE UNSPECIFIED 04/10/2009 SWEENEY DO, ANDRES K 462 sore throat 04/10/2009 EUGENE DOWNING APRN R 462 sore throat 04/10/2009 SASHA CRUZ ARIAN A 462 sore throat 04/10/2009 DESTINY JACOBSON APRNINA R 462 sore throat 04/10/2009 SWEENEY DO, ANDRES K 462 sore throat 04/10/2009 SWEENEY DO ANDRES K 462 sore throat 04/10/2009 SWEENEY , ANDRES K 462 sore throat 04/10/2009 YANIV BROWNLEE MD 462 sore throat 03/27/2010 ANDRES SWEENEY DO K NODX NO DIAGNOSIS 03/27/2010 EUGENE DOWNING APRN R NODX NO DIAGNOSIS 03/27/2010 ARIAN BAEZ APRN A NODX NO DIAGNOSIS 03/27/2010 NASRA JACOBSON APRN R NODX NO DIAGNOSIS 03/27/2010 ANDRES SWEENEY DO K NODX NO DIAGNOSIS 03/27/2010 ZAHRA OZUNA, ANDRES K NODX NO DIAGNOSIS 03/27/2010 ZAHRA OZUNA, ANDRES K NODX NO DIAGNOSIS 03/27/2010 YANIV BROWNLEE MD NODX NO DIAGNOSIS 12/10/2010 Ot 640.93 HEM EARLY PREG-ANTEPART 12/11/2010 Ot 632 MISSED 12/16/2010 Ot 729.5 PAIN IN LIMB 09/02/2011 Ot 644.03 THRT JOYCE LABOR-ANTEPART 09/02/2011 Ot 651.03 TWIN -ANTEPART 09/02/2011 Ot V91.00 TWIN GEST, UNSPEC # PLACENTA, UNSP # AMN 06/16/2013 JOSE SWEENEY DOA K V04.81 FLU SHOT 06/16/2013 EUGENE DOWNING APRN R V04.81 FLU SHOT 06/16/2013 ARIAN BAEZ APRN A V04.81 FLU SHOT 06/16/2013 NASRA JACOBSON APRN V04.81 FLU SHOT 06/16/2013 SWEENEY ANDRES OZUNA K V04.81 FLU SHOT 06/16/2013 SWEENEY JOSE OZUNAA K V04.81 FLU SHOT 06/16/2013 SWEENEY DO, ANDRES K V04.81 FLU SHOT 06/16/2013 YANIV BROWNLEE MD V04.81 FLU SHOT 07/24/2013 EUGENE DOWNING APRN R 034.0 STREP THROAT 07/24/2013 ARIAN BAEZ APRN A 034.0 STREP THROAT 07/24/2013 NASRA JACOBSON APRN R 034.0 STREP THROAT 07/24/2013 SWEENEY ANDRES OZUNA K 034.0 STREP THROAT 07/24/2013 SWEENEY DO, ANDRES K 034.0 STREP THROAT 07/24/2013 SWEENEY DO, ANDRES K 034.0 STREP THROAT 07/24/2013 YANIV BROWNLEE MD 034.0 STREP THROAT 08/04/2013 GURU BAEZ APRNYL A 079.99 VIRAL SYNDROME 08/04/2013 SASHA CRUZ ARIAN A V01.9 EXPOSURE TO CONTAGIOUS DISEASE 08/04/2013 NASRA JACOBSON APRN R 079.99 VIRAL SYNDROME 08/04/2013 DESTINY JACOBSON APRNINA R V01.9 EXPOSURE TO CONTAGIOUS DISEASE 08/04/2013 SWEENEY DO, ANDRES K 079.99 VIRAL SYNDROME 08/04/2013 SWEENEY DO, ANDRES K V01.9 EXPOSURE TO CONTAGIOUS DISEASE 08/04/2013 SWEENEY DO, ANDRES K 079.99 VIRAL SYNDROME 08/04/2013 SWEENEY DO, ANDRES K V01.9 EXPOSURE TO CONTAGIOUS DISEASE 08/04/2013 SWEENEY DO, ANDRES K 079.99 VIRAL SYNDROME 08/04/2013 SWEENEY DO, ANDRES K V01.9 EXPOSURE TO CONTAGIOUS DISEASE 08/04/2013 YANIV BROWNLEE MD 079.99 VIRAL SYNDROME 08/04/2013 YANIV BROWNLEE MD V01.9 EXPOSURE TO CONTAGIOUS DISEASE 09/07/2013 DESTINY JACOBSON APRNINA R V70.5 EXAM - PRE-EMPLOYMENT 09/07/2013 DESTINY JACOBSON APRNINA R V74.1 TB SCREENING 09/07/2013 SWEENEY DO, ANDRES K V70.5 EXAM - PRE-EMPLOYMENT 09/07/2013 SWEENEY DO, ANDRES K V74.1 TB SCREENING 09/07/2013 SWEENEY DO, ANDRES K V70.5 EXAM - PRE-EMPLOYMENT 09/07/2013 SWEENEY DO, ANDRES K V74.1 TB SCREENING 09/07/2013 SWEENEY DO, ANDRES K V70.5 EXAM - PRE-EMPLOYMENT 09/07/2013 SWEENEY DO, ANDRES K V74.1 TB SCREENING 09/07/2013 YANIV BROWNLEE MD V70.5 EXAM - PRE-EMPLOYMENT 09/07/2013 YANIV BROWNLEE MD V74.1 TB SCREENING 11/22/2013 YAO OCONNELL MD Ot 599.0 URIN TRACT INFECTION NOS 11/22/2013 YAO OCONNELL MD Ot 787.01 NAUSEA WITH VOMITING 11/24/2013 ISABELLA IYER, HILARIO Noe Ot 276.8 HYPOPOTASSEMIA 11/24/2013 ISABELLA IYER, HILARIO Noe Ot 599.0 URIN TRACT INFECTION NOS 11/24/2013 ISABELLA IYER, HILARIO Noe Ot 787.01 NAUSEA WITH VOMITING 12/12/2013 ANDRES SWEENEY DO K 789.09 ABDOMINAL PAIN OTHER SPECIFIED SITE 12/12/2013 ANDRES SWEENEY DO 789.61 ABDOMINAL TENDERNESS RIGHT UPPER QUADRANT 12/12/2013 ANDRES SWEENEY DO K 789.09 ABDOMINAL PAIN OTHER SPECIFIED SITE 12/12/2013 ANDRES SWEENEY DO 789.61 ABDOMINAL TENDERNESS RIGHT UPPER QUADRANT 12/12/2013 YANIV BROWNLEE MD 789.09 ABDOMINAL PAIN OTHER SPECIFIED SITE 12/12/2013 YANIV BROWNLEE MD 789.61 ABDOMINAL TENDERNESS RIGHT UPPER QUADRANT 02/15/2014 ANDRES SWEENEY DO 719.41 PAIN IN JOINT INVOLVING SHOULDER REGION 02/15/2014 YANIV BROWNLEE MD 719.41 PAIN IN JOINT INVOLVING SHOULDER REGION 06/29/2014 YANIV BROWNLEE MD 519.11 ACUTE BRONCHOSPASM 04/03/2016 Ot 637.10 ABORT NOS W HEMORR-UNSP 04/03/2016 Ot 626.8 MENSTRUAL DISORDER NEC 04/03/2016 Ot 789.03 ABDOMINAL PAIN, RIGHT LOWER QUADRANT 04/03/2016 Ot 789.33 ABDOMINAL/ PELVIC SWELLING,MASS/LUMP,RT L 04/09/2016 YANIV BROWNLEE MD Ot R19.04 LEFT LOWER QUADRANT ABDOMINAL SWELLING, 04/21/2016 Ot 637.10 ABORT NOS W HEMORR-UNSP 04/21/2016 Ot 626.8 MENSTRUAL DISORDER NEC 04/21/2016 Ot 789.03 ABDOMINAL PAIN, RIGHT LOWER QUADRANT 04/21/2016 Ot 789.33 ABDOMINAL/ PELVIC SWELLING,MASS/LUMP,RT L 04/21/2016 YANIV BROWNLEE MD Ot R19.04 LEFT LOWER QUADRANT ABDOMINAL SWELLING, 04/21/2016 KIM LAWRENCE DO Ot R19.04 LEFT LOWER QUADRANT ABDOMINAL SWELLING, 04/21/2016 Ot 637.10 ABORT NOS W HEMORR-UNSP 04/21/2016 Ot 626.8 MENSTRUAL DISORDER NEC 04/21/2016 Ot 789.03 ABDOMINAL PAIN, RIGHT LOWER QUADRANT 04/21/2016 Ot 789.33 ABDOMINAL/ PELVIC SWELLING,MASS/LUMP,RT L 04/21/2016 YANIV BROWNLEE MD Ot R19.04 LEFT LOWER QUADRANT ABDOMINAL SWELLING, 04/21/2016 KIM LAWRENCE DO Ot R19.04 LEFT LOWER QUADRANT ABDOMINAL SWELLING, 04/21/2016 KIM LAWRENCE DO Ot R19.04 LEFT LOWER QUADRANT ABDOMINAL SWELLING, 04/21/2016 YANIV BROWNLEE MD Ot R19.04 LEFT LOWER QUADRANT ABDOMINAL SWELLING, 04/23/2016 KIM LAWRENCE DO Ot N80.6 ENDOMETRIOSIS IN CUTANEOUS SCAR 04/29/2016 LAWRENCE KIM OZUNA Ot N80.6 ENDOMETRIOSIS IN CUTANEOUS SCAR 05/04/2016 YANIV BROWNLEE MD Ot R19.04 LEFT LOWER QUADRANT ABDOMINAL SWELLING, 05/04/2016 KIM LAWRENCE DO Ot R19.04 LEFT LOWER QUADRANT ABDOMINAL SWELLING, 05/05/2016 KIM LAWRENCE DO Ot R19.04 LEFT LOWER QUADRANT ABDOMINAL SWELLING, 09/18/2016 YANIV BROWNLEE MD Ot R19.04 LEFT LOWER QUADRANT ABDOMINAL SWELLING, 09/18/2016 KIM LAWRENCE DO Ot R19.04 LEFT LOWER QUADRANT ABDOMINAL SWELLING, 09/18/2016 KOURTNEY IYER, YAO Vazquez Ot R22.0 LOCALIZED SWELLING, MASS AND LUMP, HEAD 09/28/2016 YAO OCONNELL MD Ot R22.0 LOCALIZED SWELLING, MASS AND LUMP, HEAD 10/23/2016 TRISH MAURICIO APRN Ot S60.132A CONTUSION OF LEFT MIDDLE FINGER W DAMAGE 10/23/2016 TRISH MAURICIO APRN Ot W23.0XXA CAUGHT, CRUSH, JAMMED, OR PINCHED BETW M 10/23/2016 TRISH MAURICIO APRN Ot Y99.8 OTHER EXTERNAL CAUSE STATUS 10/23/2016 YANIV BROWNLEE MD Ot R19.04 LEFT LOWER QUADRANT ABDOMINAL SWELLING, 10/23/2016 KIM LAWRENCE DO Ot R19.04 LEFT LOWER QUADRANT ABDOMINAL SWELLING, 10/26/2016 TRISH MAURICIO APRN Ot S60.132A CONTUSION OF LEFT MIDDLE FINGER W DAMAGE 10/26/2016 TRSIH MAURICIO APRN Ot W23.0XXA CAUGHT, CRUSH, JAMMED, OR PINCHED BETW M 10/26/2016 TRISH MAURICIO SUPERINTENDENT PIPELINES Ot Y99.8 OTHER EXTERNAL CAUSE STATUS 02/10/2017 DAYAMI TIJERINA DO Ot F17.210 NICOTINE DEPENDENCE, CIGARETTES, UNCOMPL 02/10/2017 DAYAMI TIJERINA DO Ot L03.115 CELLULITIS OF RIGHT LOWER LIMB 02/10/2017 DAYAMI TIJERINA DO Ot M79.671 PAIN IN RIGHT FOOT 02/10/2017 LILLIANA DAYAMI OZUNA Ot Z23 ENCOUNTER FOR IMMUNIZATION 02/11/2017 DAYAMI TIJERINA DO Ot F17.210 NICOTINE DEPENDENCE, CIGARETTES, UNCOMPL 02/11/2017 DAYAMI TIJERINA DO Ot L03.115 CELLULITIS OF RIGHT LOWER LIMB 02/11/2017 DAYAMI TIJERINA DO Ot M79.671 PAIN IN RIGHT FOOT 02/11/2017 DAYAMI TIJERINA DO Ot Z23 ENCOUNTER FOR IMMUNIZATION Procedures Code Description Performed By Performed On 96.49 12/10/2010 26793 STREP A (IN-HOUSE) 07/24/2013 27260 TB TEST INTRADERMAL 09/07/2013 85554 URINE DRUG SCREEN (IN-HOUSE ) 09/07/2013 25752 UA W/ CULTURE IF INDICATED 12/12/[address] ABDOMEN & PELVIS W/ & W/ O CONTRAST 12/13/2013 Results Test Result Range Methicillin resistant Staphylococcus aureus (MRSA) screening culture - 06:15 Methicillin resistant Staphylococcus aureus (MRSA) screening culture NEG NRG Gram stain microscopy - 09/18/16 15:32 Gram stain microscopy TNP NRG MUMPS ANTIBODY IGG T M - 09/18/16 15:32 Serum mumps virus IgG antibody assay (units/volume) 1.69 0.00-0.89 Serum mumps virus IgM antibody assay (units/volume) <1:10 <1:10 Bacteria identified - 09/18/16 15:32 Bacteria identified See scanned report NRG Encounters ACCT No. Visit Date/Time Discharge Status Pt. Type Provider Facility Loc./Unit Complaint [id number] 06/29/2014 11:14:00 06/29/2014 23:59:59 CLS Outpatient TORRIE IYER, YANIV [id number] 02/15/2014 14:47:00 02/15/2014 23:59:59 CLS [place]patient [place] S[place]ENEY DO [place] [id number] 12/12/2013 15:36:00 12/12/2013 23:59:59 CLS Outpatient [place] S[place]Y DO Ko [id number] 09/07/2013 13:42:00 09/07/2013 23:59:59 CLS Outpatient INDIRA SUPERINTENDENT PIPELINESNASRA Marianela [id number] 09/07/2013 13:42:00 09/07/2013 23:59:59 CLS Outpatient [place] S[place]Y DO [place] [id number] 08/04/2013 09:58:00 08/04/2013 23:59:59 CLS Outpatient SASHA SUPERINTENDENT PIPELINESGURUARI Torrez [id number] 07/24/2013 12:26:00 07/24/2013 23:59:59 CLS Outpatient SALINA SUPERINTENDENT PIPELINES, EUGENE Bear [id number] 06/16/2013 12:29:00 06/16/2013 23:59:59 CLS Outpatient ANDRES SWEENEY DO [id number] 02/09/2017 23:15:00 02/10/2017 00:49:00 DIS Emergency DAYAMI TIJERINA DO Via [facility] ER RT FOOT INJURY,BED FRAME FELL ON FOOT [id number] 10/23/2016 09:47:00 10/23/2016 10:42:00 DIS Emergency TRISH MAURICIO APRN [facility] ER LEFT MIDDLE FINGER INJURY [id number] 09/18/2016 14:59:00 09/18/2016 15:45:00 DIS Outpatient YAO OCONNELL MD [facility] LAB MUMPS [id number] 09/18/2016 14:12:00 09/18/2016 14:12:00 CAN Emergency ROBINA GOMEZ MD [facility] ER SORE THROAT/FEVER FATIGUE [id number] 04/23/2016 06:06:00 04/23/2016 12:15:00 DIS [facility] [id number] 04/21/2016 09:44:00 04/21/2016 12:36:00 DIS Outpatient KIM LAWRENCE DO [facility] PREOP ABDOMINAL WALL MASS [id number] 04/10/2016 07:51:00 04/10/2016 23:59:59 CLS Outpatient MELINDA DO, KIM D [facility] RAD ABD WALL MASS [id number] 04/03/2016 09:00:00 04/03/2016 23:59:59 CLS Outpatient YANIV BROWNLEE MD [facility] RAD ABDOMINAL WALL PAIN, LL ABD MASS [id number] 11/23/2013 19:45:00 11/24/2013 00:02:00 DIS Emergency ISABELLA IYER, HILARIO Noe [facility] ER VOMITING,DIARRHEA,ABD PAIN [id number] 11/22/2013 08:46:00 11/22/2013 10:55:00 DIS Emergency KOURTNEY IYER, YAO Vazquez [facility] ER VOMITING [id number] 04/03/2016 08:58:00 Document Registration [id number] 11/25/2012 13:50:00 Document Registration [id number] 09/02/2011 13:20:00 Document Registration [id number] 12/15/2010 22:21:00 Document Registration [id number] 12/15/2010 11:24:00 Document Registration [id number] 12/10/2010 13:49:00 Document Registration [id number] 12/10/2010 13:17:00 Document Registration [id number] 04/19/2018 19:50:00 04/19/2018 23:59:59 CLS Outpatient TORRIE IYER, YANIV LOMBARDO [facility]
[2018-06-03 20:29] LABS: ALANINE AMINOTRANSFERASE 17 U/L (0-55); ALBUMIN 4.3 GM/DL (3.2-4.5); ALKALINE PHOSPHATASE 46 U/L (40-136); BILIRUBIN,TOTAL 0.6 MG/DL (0.1-1.0); BUN/CREATININE RATIO 11; CALCIUM 9.2 MG/DL (8.5-10.1); CARBON DIOXIDE 22 MMOL/L (21-32); CHLORIDE 104 MMOL/L (98-107); CREATININE SERUM 0.75 MG/DL (0.60-1.30); GFR ESTIMATED > 60; GLUCOSE 91 MG/DL (70-105); MAGNESIUM 2.2 MG/DL (1.8-2.4); POTASSIUM 3.7 MMOL/L (3.6-5.0); SODIUM 138 MMOL/L (135-145); TOTAL PROTEIN 7.3 GM/DL (6.4-8.2)
--- NOTE | 2018-06-03 20:45 | Diagnostic Imaging Report ---
INDICATION: Headache. Cough. Dizziness. Altered mental status. EXAMINATION: Noncontrast CT scan of the head. FINDINGS: There is no evidence of intracranial hemorrhage. No mass effect. No evidence of focal cortical edema. Cortical gyral pattern is normal. Basal cisterns are clear. CP angles appear normal. Pituitary is not enlarged. No extra-axial fluid collection. Mastoid air cells are clear. Paranasal sinuses are clear, where visualized. No evidence of calvarial fracture. IMPRESSION: Negative CT head without contrast. Dictated by: Dictated on workstation # [id number]
[2018-06-03 20:48] LABS: TSH (THYROID ANALYZER) 1.88 UIU/ML (0.35-4.94)
--- NOTE | 2018-06-03 20:48 | Diagnostic Imaging Report ---
INDICATION: Cough with headache. Dizziness. FINDINGS: Portable chest. The lungs are well-aerated and clear. Heart is not enlarged. No pulmonary edema. No hilar adenopathy. No pneumothorax or pleural effusions. No bony lesions. IMPRESSION: Normal portable chest. Dictated by: Dictated on workstation # [id number]
--- NOTE | 2018-06-03 20:52 | ED General ---
General Chief Complaint: Head/Cervical Problems Stated Complaint: HEADACHE/HOT FLASHES Source of Information: Patient, EMS History of Present Illness Date Seen by Provider: Jun 03, 2018 Time Seen by Provider: 20:00 Initial Comments PT ARRIVES VIA EMS FROM PT'S WORKPLACE AT [facility] PT STATES THAT WHILE SHE WAS STANDING AT A TABLE, SHE BEGAN TO FEEL DIZZY, GOT HOT, NAUSEATED AND GOT REAL SHAKEY AND FELT LIKE SHE WAS GOING TO PASS OUT-- STATES "THE ROOM STARTED GETTING DARK" AND SHE SAT DOWN IN A CHAIR. STATES SHE HAS HAD A HEADACHE--BOTH SIDES OF HEAD--SINCE LAST NIGHT AND IT CONTINUES TODAY NO VISION CHANGES NO PARESTHESIAS OR MOTOR DEFICITS NO NECK PAIN OR STIFFNESS NO CHEST PAIN NO PALPITATIONS STATES HE FELT SLIGHTLY SHORT OF BREATH EARLIER, BUT NOT NOW WAS NAUSEATED, BUT NOT NOW DIZZINESS IS ALSO GONE STATES SHE HAS HAD A MILD COUGH THE LAST COUPLE OF DAYS NO REPORTED FEVER, BUT HAS BEEN COLD PT STATES SHE DOES NOT REMEMBER PASSING OUT, BUT CO-WORKER TOLD HER SHE DID, BUT SYNCOPE WAS NOT REPORTED TO US BY EMS STAFF. EMS REPORT THAT WHEN SHE TRIED TO STAND TO GET ON THEIR CART, SHE WAS WEAK AND SHAKEY AND REQUIRED ASSIST. PT STATES SHE USED TO HAVE EPISODES LIKE THIS WHEN SHE WAS LITTLE-USUALLY IN THE SUMMER WHEN SHE GOT TOO HOT. STATES SHE DID HAVE THIS SAME THING HAPPEN APPROXIMATELY A MONTH AGO AND WENT TO [facility], BUT NO TESTS WERE DONE AND PT STATES SHE WAS TOLD THEY DIDN'T KNOW WHAT IT WAS. PCP: [facility] Allergies and Home Medications Allergies Coded Allergies: latex (Verified Allergy, Unknown, 04/21/16) Home Medications Cetirizine HCl 10 Mg Capsule, 10 MG PO DAILY, (Reported) Naproxen 500 Mg Tablet, 500 MG PO BID Prescribed by: DAYAMI TIJERINA on 02/10/1723 Sulfamethoxazole/Trimethoprim 1 Each Tablet, 1 EACH PO BID Prescribed by: DAYAMI TIJERINA on 02/10/1723 Tramadol HCl 50 Mg Tablet, 50 MG PO Q4H Prescribed by: DAYAMI TIJERINA on 02/10/1723 Patient Home Medication List Home Medication List Reviewed: Yes Review of Systems Review of Systems Constitutional: see HPI, malaise, weakness EENTM: no symptoms reported; No blurred vision, No double vision Respiratory: see HPI, short of breath Cardiovascular: see HPI; No chest pain, No edema, No palpitations, No vascular heart diseas Gastrointestinal: see HPI; No abdominal pain, No loss of appetite; nausea; No vomiting Genitourinary: no symptoms reported : No (S/P HYST) Musculoskeletal: no symptoms reported Skin: no symptoms reported Psychiatric/Neurological: See HPI, Headache; Denies Numbness, Denies Paresthesia, Denies Seizure, Denies Tingling Hematologic/Lymphatic: No Symptoms Reported Immunological/Allergic: no symptoms reported Past Tvlwkgw-Tgbmyu-Yswliy Hx Patient Social History Alcohol Use: Occasionally Uses Recreational Drug Use: Yes (THC, METH BY HISTORY , DENIES IV USE) Drug of Choice: HX OF THC, METH USE Smoking Status: Current Everyday Smoker (1 PPD) Type Used: Cigarettes Recent Foreign Travel: No Contact w/Someone Who Travel: No Recent Hopitalizations: No Immunizations Up To Date Tetanus Booster (TDap): Less than 5yrs Seasonal Allergies Seasonal Allergies: No Past Medical History Surgeries: Yes (HYST/OVARIES INTACT; SOFT TISSUE MASS FROM LEFT LOWER ABDOMEN REMOVED. 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 0.0oz. 74.348523mf; 24.4 BMI Method:Stated General Appearance: No Apparent Distress, WD/WN, Other (SLIGHTLY LETHARGIC) HEENT: PERRL/EOMI, TMs Normal, Normal ENT Inspection, Pharynx Normal Neck: Full Range of Motion, Normal Inspection, Non Tender, Supple Respiratory: Normal Breath Sounds, No Accessory Muscle Use, No Respiratory Distress Cardiovascular: Regular Rate, Rhythm, No Edema, No JVD, No Murmur, Normal Peripheral Pulses Gastrointestinal: Normal Bowel Sounds, No Organomegaly, No Pulsatile Mass, Non Tender, Soft Back: Normal Inspection, No CVA Tenderness, No Vertebral Tenderness Extremity: Normal Capillary Refill, Normal Inspection, Normal Range of Motion, Non Tender, No Calf Tenderness, No Pedal Edema Neurologic/Psychiatric: Alert, Oriented x3, No Motor/Sensory Deficits, talent development analyst II- XII Norm as Tested; No Abnormal Cerebellar Tests Skin: Normal Color, Warm/Dry Progress/Results/Core Measures Suspected Sepsis SIRS Temperature: Pulse: Respiratory Rate: Laboratory Tests 06/03/18 20:10: White Blood Count 6.7 Blood Pressure / Mean: Laboratory Tests 06/03/18 20:10: Creatinine 0.75, INR Comment 1.0, Platelet Count 263, Total Bilirubin 0.6 Results/Orders Lab Results Laboratory Tests Test 06/03/18 20:10 06/03/18 20:26 06/03/18 20:58 Range/Units White Blood Count 6.7 4.3-11.0 10^3/uL Red Blood Count 5.08 4.35-5.85 10^6/uL Hemoglobin 14.9 11.5-16.0 G/DL Hematocrit 43 35-52 % Mean Corpuscular Volume 85 80-99 FL Mean Corpuscular Hemoglobin 29 25-34 PG Mean Corpuscular Hemoglobin Concent 35 32-36 G/DL Red Cell Distribution Width 13.2 10.0-14.5 % Platelet Count 263 130-400 10^3/uL Mean Platelet Volume 10.5 H 7.4-10.4 FL Neutrophils (%) (Auto) 54 42-75 % Lymphocytes (%) (Auto) 33 12-44 % Monocytes (%) (Auto) 11 0-12 % Eosinophils (%) (Auto) 2 0-10 % Basophils (%) (Auto) 0 0-10 % Neutrophils # (Auto) 3.6 1.8-7.8 X 10^3 Lymphocytes # (Auto) 2.2 1.0-4.0 X 10^3 Monocytes # (Auto) 0.7 0.0-1.0 X 10^3 Eosinophils # (Auto) 0.1 0.0-0.3 10^3/uL Basophils # (Auto) 0.0 0.0-0.1 10^3/uL Prothrombin Time 13.0 12.2-14.7 SEC INR Comment 1.0 0.8-1.4 Activated Partial Thromboplast Time 28 24-35 SEC Sodium Level 138 135-145 MMOL/L Potassium Level 3.7 3.6-5.0 MMOL/L Chloride Level 104 98-107 MMOL/L Carbon Dioxide Level 22 21-32 MMOL/L Anion Gap 12 5-14 MMOL/L Blood Urea Nitrogen 8 7-18 MG/DL Creatinine 0.75 0.60-1.30 MG/DL Estimat Glomerular Filtration Rate > 60 BUN/Creatinine Ratio 11 Glucose Level 91 70-105 MG/DL Glucometer 86 70-110 MG/DL Calcium Level 9.2 8.5-10.1 MG/DL Corrected Calcium 9.0 8.5-10.1 MG/DL Magnesium Level 2.2 1.8-2.4 MG/DL Total Bilirubin 0.6 0.1-1.0 MG/DL Aspartate Amino Transf (AST/SGOT) 18 5-34 U/L Alanine Aminotransferase (ALT/SGPT) 17 0-55 U/L Alkaline Phosphatase 46 40-136 U/L Troponin I < 0.30 <0.30 NG/ML B-Type Natriuretic Peptide < 10.0 <100.0 PG/ML Total Protein 7.3 6.4-8.2 GM/DL Albumin 4.3 3.2-4.5 GM/DL TSH Gage Testing 1.88 0.35-4.94 UIU/ML Serum Alcohol < 10 <10 MG/DL Monoscreen NEGATIVE NEGATIVE Group A Streptococcus Screen NEGATIVE NEGATIVE Urine Color YELLOW Urine Clarity CLEAR Urine pH 6 5-9 Urine Specific [place] 1.010 L 1.016-1.022 Urine Protein NEGATIVE NEGATIVE Urine Glucose (UA) NEGATIVE NEGATIVE Urine Ketones NEGATIVE NEGATIVE Urine Nitrite NEGATIVE NEGATIVE Urine Bilirubin NEGATIVE NEGATIVE Urine Urobilinogen NORMAL NORMAL MG/DL Urine Leukocyte Esterase NEGATIVE NEGATIVE Urine RBC (Auto) 1+ H NEGATIVE Urine RBC 0-2 /HPF Urine WBC NONE /HPF Urine Squamous Epithelial Cells 2-5 /HPF Urine Crystals NONE /LPF Urine Bacteria NEGATIVE /HPF Urine Casts NONE /LPF Urine Mucus NEGATIVE /LPF Urine Culture Indicated NO Urine Opiates Screen NEGATIVE NEGATIVE Urine Oxycodone Screen NEGATIVE NEGATIVE Urine Methadone Screen NEGATIVE NEGATIVE Urine Propoxyphene Screen NEGATIVE NEGATIVE Urine Barbiturates Screen NEGATIVE NEGATIVE Ur Tricyclic Antidepressants Screen NEGATIVE NEGATIVE Urine Phencyclidine Screen NEGATIVE NEGATIVE Urine Amphetamines Screen NEGATIVE NEGATIVE Urine Methamphetamines Screen NEGATIVE NEGATIVE Urine Benzodiazepines Screen NEGATIVE NEGATIVE Urine Cocaine Screen NEGATIVE NEGATIVE Urine Cannabinoids Screen NEGATIVE NEGATIVE Micro Results Microbiology 06/03/18 Influenza Types A,B Antigen (ALTAGRACIA) - Final, Complete My Orders Orders - DAYAMI TIJERINA DO Saline Lock/Iv-Start (06/03/18 20:08) Ekg Tracing (06/03/18 20:08) Monitor-Rhythm Ecg Trace Only (06/03/18 20:08) Alcohol (06/03/18 20:08) BNP (06/03/18 20:08) Cbc With Automated Diff (06/03/18 20:08) Comprehensive Metabolic Panel (06/03/18 20:08) Drug Screen Stat (Urine) (06/03/18 20:08) Magnesium (06/03/18 20:08) Monotest (06/03/18 20:08) Protime With Inr (06/03/18 20:08) Partial Thromboplastin Time (06/03/18 20:08) Rapid Strep A Screen (06/03/18 20:08) Thyroid Analyzer (06/03/18 20:08) Troponin I (06/03/18 20:08) Ua Culture If Indicated (06/03/18 20:08) Influenza A And B Antigens (06/03/18 20:08) Ct Head Wo-R/O Stroke (06/03/18 20:08) Chest 1 View, Ap/Pa Only (06/03/18 20:08) Saline Lock/Iv-Start (06/03/18 20:08) Lactated Ringers (Lr 1000 Ml Iv Solution (06/03/18 20:08) Lactated Ringers (Lr 1000 Ml Iv Solution (06/03/18 20:12) Ketorolac Injection (Toradol Injection) (06/03/18 21:15) Saline Lock/Iv-Start (06/03/18 21:04) Lactated Ringers (Lr 1000 Ml Iv Solution (06/03/18 21:04) Medications Given in ED Current Medications Medications Dose Ordered Sig/Gissel Route Start Time Stop Time Status Last Admin Dose Admin Ketorolac Tromethamine 30 mg ONCE ONCE IVP 06/03/18 21:15 06/03/18 21:16 DC 06/03/18 21:27 30 MG Lactated Ringer's 1,000 ml @ 0 mls/hr Q0M ONCE IV 06/03/18 20:08 06/03/18 20:11 DC 06/03/18 20:14 0 MLS/HR Lactated Ringer's 1,000 ml @ 0 mls/hr Q0M ONCE IV 06/03/18 21:04 06/03/18 21:05 DC 06/03/18 21:29 1,000 MLS/HR Vital Signs/I&O 06/03/18 20:03 Temp 98.2 Pulse 60 Resp 20 B/P (MAP) 110/78 (89) Pulse Ox 100 O2 Delivery Room Air Capillary Refill : Progress Note : Progress Note UNEVENTFUL ER STAY ECG Initial ECG Impression Date: Jun 03, 2018 Initial ECG Impression Time: 20:16 Initial ECG Rate: 60 Initial ECG Rhythm: Normal Sinus Initial ECG Comparisson: No Previous ECG Available Diagnostic Imaging Comments CT HEAD--NO ACUTE PROCESS CXR--NO ACUTE PROCESS PER RADIOLOGIST REPORTS @ 2049 Reviewed: Reviewed by Tn Departure Communication (Admissions) 2124--SPOKE WITH DR. WINTERS, COMPUTER APPLICATIONS INSTRUCTOR FOR [facility] [place] Impression Primary Impression: Generalized weakness Additional Impressions: NEAR-SYNCOPAL EPISODE Headache Disposition: ADMITTED INPATIENT Condition: Stable Admissions Decision to Admit Reason: Admit from ER (General) Decision to Admit/Date: Jun 03, 2018 Time/Decision to Admit Time: 21:25 Departure-Patient Inst. Referrals: YANIV BROWNLEE MD (PCP/Family) Primary Care Physician DAYAMI TIJERINA DO Jun 03, 2018 20:51
[2018-06-03 21:03] LABS: BILIRUBIN,URINE NEGATIVE (NEGATIVE); CLARITY,URINE CLEAR; COLOR,URINE YELLOW; GLUCOSE, URINE (UA) NEGATIVE (NEGATIVE); KETONES,URINE NEGATIVE (NEGATIVE); LEUKOCYTE ESTERASE ,URINE NEGATIVE (NEGATIVE); NITRITE,URINE NEGATIVE (NEGATIVE); PH,URINE 6 (5-9); PROTEIN,URINE NEGATIVE (NEGATIVE); UROBILINOGEN,URINE NORMAL (NORMAL)
[2018-06-03 21:09] LABS: BACTERIA,URINE NEGATIVE /HPF; RBC,URINE 0-2 /HPF
[2018-06-03 21:14] LABS: AMPHETAMINE SCREEN, URINE NEGATIVE (NEGATIVE); BARBITURATE SCREEN URINE NEGATIVE (NEGATIVE); BENZODIAZEPINES SCREEN URINE NEGATIVE (NEGATIVE); CANNABINOID SCREEN, URINE NEGATIVE (NEGATIVE); COCAINE SCREEN URINE NEGATIVE (NEGATIVE); METHADONE STAT NEGATIVE (NEGATIVE); METHAMPHETAMINE SCREEN URINE S NEGATIVE (NEGATIVE); OPIATE SCREEN URINE NEGATIVE (NEGATIVE); OXYCODONE STAT NEGATIVE (NEGATIVE); PROPOXYPHENE STAT NEGATIVE (NEGATIVE); TRICYCLIC ANTIDEPRESSANTS SCRE NEGATIVE (NEGATIVE)
[2018-06-03] MEDS ORDERED: KETOROLAC 30 MG/ML VIAL IVP ONE (21:15)
--- OUTSIDE RECORDS SUMMARY | 2018-06-03 22:09 | XMS REPORT | Continuity of Care Document ---
Author Author Formerly [facility] Address Unknown Phone Unavailable Allergies Active Description Code Type Severity Reaction Onset Reported/Identified Relationship to Patient Clinical Status Yes No Known Drug Allergies [id number] Drug Allergy Unknown N/A 04/30/2008 Yes NKDA NKDA Mild N/ A 11/10/2008 Yes latex [id number] Drug Allergy Unknown N/A 04/21/2016 Medications There [...] OF LEFT MIDDLE FINGER W DAMAGE 10/26/2016 TRISH MAURICIO APRN Ot W23.0XXA CAUGHT, CRUSH, JAMMED, OR PINCHED BETW M 10/26/2016 TRISH MAURICIO APRN Ot Y99.8 OTHER EXTERNAL CAUSE STATUS 02/10/2017 DAYAMI TIJERINA DO Ot F17.210 NICOTINE DEPENDENCE, CIGARETTES, UNCOMPL 02/10/2017 DAYAMI TIJERINA DO Ot L03.115 CELLULITIS OF RIGHT LOWER LIMB 02/10/2017 DAYAMI TIJERINA DO Ot M79.671 PAIN IN RIGHT FOOT 02/10/2017 LILLIANA DAYAMI Connell Ot Z23 ENCOUNTER FOR IMMUNIZATION 02/11/2017 DAYAMI TIJERINA DO Ot F17.210 NICOTINE DEPENDENCE, CIGARETTES, UNCOMPL 02/11/2017 DAYAMI TIJERINA DO Ot L03.115 CELLULITIS OF RIGHT LOWER LIMB 02/11/2017 DAYAMI TIJERINA DO Ot M79.671 PAIN IN RIGHT FOOT 02/11/2017 LILLIANA DAYAMI Connell Ot Z23 ENCOUNTER FOR IMMUNIZATION Procedures Code Description Performed By Performed On 96.49 12/10/2010 26762 STREP A (IN-HOUSE) 07/24/2013 55689 TB TEST INTRADERMAL 09/07/2013 41039 URINE DRUG SCREEN (IN-HOUSE ) 09/07/2013 40586 UA W/ CULTURE IF INDICATED 12/12/[address] ABDOMEN & PELVIS W/ & W/ O CONTRAST 12/13/2013 Results Test Result Range Methicillin resistant Staphylococcus aureus (MRSA) screening culture - 06:15 Methicillin resistant Staphylococcus aureus (MRSA) screening culture NEG NRG Gram stain microscopy - 09/18/16 15:32 Gram stain microscopy TNP NR MUMPS ANTIBODY IGG T M - 09/18/16 15:32 Serum mumps virus IgG antibody assay (units/volume) 1.69 0.00-0.89 Serum mumps virus IgM antibody assay (units/volume) <1:10 <1:10 Bacteria identified - 09/18/16 15:32 Bacteria identified See scanned report NR Complete blood count (CBC) with automated white blood cell (WBC) differential - 06/03/18 20:10 Blood leukocytes automated count (number/volume) 6.7 10*3/uL 4.3-11.0 Blood erythrocytes automated count (number/volume) 5.08 10*6/uL 4.35-5.85 Venous blood hemoglobin measurement (mass/volume) 14.9 g/dL 11.5-16.0 Blood hematocrit (volume fraction) 43 % 35-52 Automated erythrocyte mean corpuscular volume 85 [foz_us] 80-99 Automated erythrocyte mean corpuscular hemoglobin (mass per erythrocyte) 29 pg 25-34 Automated erythrocyte mean corpuscular hemoglobin concentration measurement ( mass/volume) 35 g/dL 32-36 Automated erythrocyte distribution width ratio 13.2 % 10.0-14.5 Automated blood platelet count (count/volume) 263 10*3/uL 130-400 Automated blood platelet mean volume measurement 10.5 [foz_us] 7.4-10.4 Automated blood neutrophils/100 leukocytes 54 % 42-75 Automated blood lymphocytes/100 leukocytes 33 % 12-44 Blood monocytes/100 leukocytes 11 % 0-12 Automated blood eosinophils/100 leukocytes 2 % 0-10 Automated blood basophils/100 leukocytes 0 % 0-10 Blood neutrophils automated count (number/volume) 3.6 10*3 1.8-7.8 Blood lymphocytes automated count (number/volume) 2.2 10*3 1.0-4.0 Blood monocytes automated count (number/volume) 0.7 10*3 0.0-1.0 Automated eosinophil count 0.1 10*3/uL 0.0-0.3 Automated blood basophil count (count/volume) 0.0 10*3/uL 0.0-0.1 PT panel in platelet poor plasma by coagulation assay - 06/03/18 20:10 Prothrombin time (PT) in platelet poor plasma by coagulation assay 13.0 s 12.2-14.7 INR in platelet poor plasma or blood by coagulation assay 1.0 0.8-1.4 Activated partial thromboplastin time (aPTT) in platelet poor plasma bycoagulation assay - 06/03/18 20:10 Activated partial thromboplastin time (aPTT) in platelet poor plasma bycoagulation assay 28 s 24-35 Capillary blood glucose measurement by glucometer (mass/volume) - 06/03/18 20: 10 Capillary blood glucose measurement by glucometer (mass/volume) 86 mg/dL 70-110 Comprehensive metabolic panel - 06/03/18 20:10 Serum or plasma sodium measurement (moles/volume) 138 mmol/L 135-145 Serum or plasma potassium measurement (moles/volume) 3.7 mmol/L 3.6-5.0 Serum or plasma chloride measurement (moles/volume) 104 mmol/L 98-107 Carbon dioxide 22 mmol/L 21-32 Serum or plasma anion gap determination (moles/volume) 12 mmol/L 5-14 Serum or plasma urea nitrogen measurement (mass/volume) 8 mg/dL 7-18 Serum or plasma creatinine measurement (mass/volume) 0.75 mg/dL 0.60-1.30 Serum or plasma urea nitrogen/creatinine mass ratio 11 NRG Serum or plasma creatinine measurement with calculation of estimated glomerular filtration rate > NRG Serum or plasma glucose measurement (mass/volume) 91 mg/dL 70-105 Serum or plasma calcium measurement (mass/volume) 9.2 mg/dL 8.5-10.1 Serum or plasma total bilirubin measurement (mass/volume) 0.6 mg/dL 0.1-1.0 Serum or plasma alkaline phosphatase measurement (enzymatic activity/volume) 46 U/L 40-136 Serum or plasma aspartate aminotransferase measurement (enzymatic activity/ volume) 18 U/L 5-34 Serum or plasma alanine aminotransferase measurement (enzymatic activity/volume ) 17 U/L 0-55 Serum or plasma protein measurement (mass/volume) 7.3 g/dL 6.4-8.2 Serum or plasma albumin measurement (mass/volume) 4.3 g/dL 3.2-4.5 CALCIUM CORRECTED 9.0 mg/dL 8.5-10.1 Magnesium - 06/03/18 20:10 Magnesium 2.2 mg/dL 1.8-2.4 Serum heterophile antibody titer - 06/03/18 20:10 Serum heterophile antibody titer NEGATIVE NEGATIVE Serum or plasma troponin i.cardiac measurement (mass/volume) - 06/03/18 20:10 Serum or plasma troponin i.cardiac measurement (mass/volume) < ng/ mL <0.30 Influenza virus A and B antigen detection - 06/03/18 20:10 FLU RESULT NEGATIVE FOR INFLUENZA A AND B ANTIGENS BY IA NR Serum or plasma lithium measurement (moles/volume) - 06/03/18 20:10 BNP level < pg/mL <100.0 Serum or plasma thyrotropin measurement by detection limit <=0.05 miu/l (units/ volume) - 06/03/18 20:10 Serum or plasma thyrotropin measurement by detection limit <=0.05 miu/l (units/ volume) 1.88 u[iU]/mL 0.35-4.94 Serum or plasma ethanol measurement (mass/volume) - 06/03/18 20:10 Serum or plasma ethanol measurement (mass/volume) < mg/dL <10 Streptococcus pyogenes antigen detection - 06/03/18 20:26 Streptococcus pyogenes antigen detection NEGATIVE NEGATIVE Complete urinalysis with reflex to culture - 06/03/18 20:58 Urine color determination YELLOW NRG Urine clarity determination CLEAR NRG Urine pH measurement by test strip 6 5-9 Specific gravity of urine by test strip 1.010 1.016- 1.022 Urine protein assay by test strip, semi-quantitative NEGATIVE NEGATIVE Urine glucose detection by automated test strip NEGATIVE NEGATIVE Erythrocytes detection in urine sediment by light microscopy 1+ NEGATIVE Urine ketones detection by automated test strip NEGATIVE NEGATIVE Urine nitrite detection by test strip NEGATIVE NEGATIVE Urine total bilirubin detection by test strip NEGATIVE NEGATIVE Urine urobilinogen measurement by automated test strip (mass/volume) NORMAL NORMAL Urine leukocyte esterase detection by dipstick NEGATIVE NEGATIVE Automated urine sediment erythrocyte count by microscopy (number/high power field) [HPF] NRG Automated urine sediment leukocyte count by microscopy (number/high power field ) NONE NRG Bacteria detection in urine sediment by light microscopy NEGATIVE NRG Squamous epithelial cells detection in urine sediment by light microscopy 2-5 NRG Crystals detection in urine sediment by light microscopy NONE NRG Casts detection in urine sediment by light microscopy NONE NRG Mucus detection in urine sediment by light microscopy NEGATIVE NRG Complete urinalysis with reflex to culture NO NRG Urine drug screening test - 06/03/18 20:58 Urine phencyclidine detection by screening method NEGATIVE NEGATIVE Urine benzodiazepines detection by screening method NEGATIVE NEGATIVE Urine cocaine detection NEGATIVE NEGATIVE Urine amphetamines detection by screening method NEGATIVE NEGATIVE Urine methamphetamine detection by screening method NEGATIVE NEGATIVE Urine cannabinoids detection by screening method NEGATIVE NEGATIVE Urine opiates detection by screening method NEGATIVE NEGATIVE Urine barbiturates detection NEGATIVE NEGATIVE Screening urine tricyclic antidepressants detection NEGATIVE NEGATIVE Urine methadone detection by screening method NEGATIVE NEGATIVE Urine oxycodone detection NEGATIVE NEGATIVE Urine propoxyphene detection NEGATIVE NEGATIVE Encounters ACCT No. Visit Date/Time Discharge Status Pt. Type Provider Facility Loc./Unit Complaint [id number] 06/29/2014 11:14:00 06/29/2014 23:59:59 [facility] Outpatient TORRIE IYER, YANIV [id number] 02/15/2014 14:47:00 02/15/2014 23:59:59 [facility] [id number] 12/12/2013 15:36:00 12/12/2013 23:59:59 CLS Outpatient ANDRES SWEENEY DO [id number] 09/07/2013 13:42:00 09/07/2013 23:59:59 CLS Outpatient INDIRA CRUZ NASRA Bear [id number] 09/07/2013 13:42:00 09/07/2013 23:59:59 CLS Outpatient ANDRES SWEENEY DO Ko [id number] 08/04/2013 09:58:00 08/04/2013 23:59:59 CLS Outpatient ARIAN BAEZ APRN [id number] 07/24/2013 12:26:00 07/24/2013 23:59:59 [facility]LS Outpatient EUGENE DOWNING APRN [id number] 06/16/2013 12:29:00 06/16/2013 23:59:59 CLS Outpatient ANDRES SWEENEY DO [id number] 02/09/2017 23:15:00 02/10/2017 00:49:00 DIS Emergency LILLIANADAYAMI Dubois DO [facility] ER RT FOOT INJURY,BED FRAME FELL ON FOOT [id number] 10/23/2016 09:47:00 10/23/2016 10:42:00 DIS Emergency TRISH MAURICIO APRN [facility] ER LEFT MIDDLE FINGER INJURY [id number] 09/18/2016 14:59:00 09/18/2016 15:45:00 DIS Outpatient YAO OCONNELL MD [facility] LAB MUMPS [id number] 09/18/2016 14:12:00 09/18/2016 14:12:00 CAN Emergency ROBINA GOMEZ MD [facility] ER SORE THROAT/FEVER FATIGUE [id number] 04/23/2016 06:06:00 04/23/2016 12:15:00 DIS Outpatient KIM LAWRENCE DO [facility] ABDOMINAL WALL MASS [id number] 04/21/2016 09:44:00 04/21/2016 12:36:00 DIS Outpatient KIM LAWRENCE DO [facility] PREOP ABDOMINAL WALL MASS [id number] 04/10/2016 07:51:00 04/10/2016 23:59:59 CLS Outpatient KIM LAWRENCE DO [facility] RAD ABD WALL MASS [id number] 04/03/2016 09:00:00 04/03/2016 23:59:59 CLS Outpatient YANIV BROWNLEE MD [facility] RAD ABDOMINAL WALL PAIN, LL ABD MASS [id number] 11/23/2013 19:45:00 11/24/2013 00:02:00 DIS Emergency ISABELLA IYER, HILARIO Noe [facility] ER VOMITING,DIARRHEA,ABD PAIN [id number] 11/22/2013 08:46:00 11/22/2013 10:55:00 DIS Emergency KOURTNEY IYER, YAO Vazquez [facility] ER VOMITING [id number] 06/03/2018 20:18:00 Document Registration [id number] 04/03/2016 08:58:00 Document Registration [id number] 11/25/2012 13:50:00 Document Registration [id number] 09/02/2011 13:20:00 Document Registration [id number] 12/15/2010 22:21:00 Document Registration [id number] 12/15/2010 11:24:00 Document Registration [id number] 12/10/2010 13:49:00 Document Registration [id number] 12/10/2010 13:17:00 Document Registration [id number] 04/19/2018 19:50:00 04/19/2018 23:59:59 CLS Outpatient YANIV BROWNLEE MD [facility]
[2018-06-03] MEDS ORDERED: ONDANSETRON 4 MG/2 ML (SDV) Z0FRAN IV PRN (22:45)
[2018-06-03] MEDS ORDERED: KETOROLAC 30 MG/ML VIAL IV PRN (22:45)
[2018-06-03] MEDS ORDERED: CATHETER FLUSH 10 ML SYR IV PRN (22:45)
[2018-06-03] MEDS: LACTATED RINGERS 1,000 ML IV SCH (23:26)
[2018-06-04] VITALS (7 sets, daily range): BP systolic 82–108; BP diastolic 46–67
[2018-06-04] MEDS ORDERED: CATHETER FLUSH 10 ML SYR IV SCH (06:00)
--- NOTE | 2018-06-04 06:08 | History & Physicial (CHS) ---
HPI History of Present Illness: 27-year-old female presents to [facility] emergency department during the late evening of June 03, 2018 after having syncopal episode while at work. Patient is employed at [employer]. Apparently she was standing at a [place]imatack table when she began to feel dizzy, became hot as well as nauseated. She also reports the room started to get dark and she sat down in a chair. She has had an episode like this previous about 1 month ago. She has not had any formal workup other than what was performed in the ED during the evening of June 03, 2018. She denies any chest pain or shortness of breath. 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 Patients Allergies have been reviewed. Allergies Coded Allergies: latex (Verified Allergy, Unknown, 04/21/16) [id number] Hx Patient Social History Alcohol Use: Occasionally Uses Recreational Drug Use: Yes (THC, METH BY HISTORY , DENIES IV USE) Drug of Choice: HX OF THC, METH USE Smoking Status: Current Everyday Smoker Type Used: Cigarettes Recent Foreign Travel: No Contact w/other who traveled: No Recent Hopitalizations: No Recent Infectious Disease Expo: No Physical Abuse Screen: No Sexual Abuse: No Immunizations Up To Date Tetanus Booster (TDap): Less than 5yrs Review of Systems (CHC) Constitutional: see HPI Reviewed Test Results Reviewed Test Results Lab Laboratory Tests Test 06/03/18 20:10 06/03/18 20:26 06/03/18 20:58 Range/Units White Blood Count 6.7 4.3-11.0 10^3/uL Red Blood Count 5.08 4.35-5.85 10^6/uL Hemoglobin 14.9 11.5-16.0 G/DL Hematocrit 43 35-52 % Mean Corpuscular Volume 85 80-99 FL Mean Corpuscular Hemoglobin 29 25-34 PG Mean Corpuscular Hemoglobin Concent 35 32-36 G/DL Red Cell Distribution Width 13.2 10.0-14.5 % Platelet Count 263 130-400 10^3/uL Mean Platelet Volume 10.5 H 7.4-10.4 FL Neutrophils (%) (Auto) 54 42-75 % Lymphocytes (%) (Auto) 33 12-44 % Monocytes (%) (Auto) 11 0-12 % Eosinophils (%) (Auto) 2 0-10 % Basophils (%) (Auto) 0 0-10 % Neutrophils # (Auto) 3.6 1.8-7.8 X 10^3 Lymphocytes # (Auto) 2.2 1.0-4.0 X 10^3 Monocytes # (Auto) 0.7 0.0-1.0 X 10^3 Eosinophils # (Auto) 0.1 0.0-0.3 10^3/uL Basophils # (Auto) 0.0 0.0-0.1 10^3/uL Prothrombin Time 13.0 12.2-14.7 SEC INR Comment 1.0 0.8-1.4 Activated Partial Thromboplast Time 28 24-35 SEC Sodium Level 138 135-145 MMOL/L Potassium Level 3.7 3.6-5.0 MMOL/L Chloride Level 104 98-107 MMOL/L Carbon Dioxide Level 22 21-32 MMOL/L Anion Gap 12 5-14 MMOL/L Blood Urea Nitrogen 8 7-18 MG/DL Creatinine 0.75 0.60-1.30 MG/DL Estimat Glomerular Filtration Rate > 60 BUN/Creatinine Ratio 11 Glucose Level 91 70-105 MG/DL Glucometer 86 70-110 MG/DL Calcium Level 9.2 8.5-10.1 MG/DL Corrected Calcium 9.0 8.5-10.1 MG/DL Magnesium Level 2.2 1.8-2.4 MG/DL Total Bilirubin 0.6 0.1-1.0 MG/DL Aspartate Amino Transf (AST/SGOT) 18 5-34 U/L Alanine Aminotransferase (ALT/SGPT) 17 0-55 U/L Alkaline Phosphatase 46 40-136 U/L Troponin I < 0.30 <0.30 NG/ML B-Type Natriuretic Peptide < 10.0 <100.0 PG/ML Total Protein 7.3 6.4-8.2 GM/DL Albumin 4.3 3.2-4.5 GM/DL TSH [place] Testing 1.88 0.35-4.94 UIU/ML Serum Alcohol < 10 <10 MG/DL Monoscreen NEGATIVE NEGATIVE Group A Streptococcus Screen NEGATIVE NEGATIVE Urine Color YELLOW Urine Clarity CLEAR Urine pH 6 5-9 Urine Specific [place] 1.010 L 1.016-1.022 Urine Protein NEGATIVE NEGATIVE Urine Glucose (UA) NEGATIVE NEGATIVE Urine Ketones NEGATIVE NEGATIVE Urine Nitrite NEGATIVE NEGATIVE Urine Bilirubin NEGATIVE NEGATIVE Urine Urobilinogen NORMAL NORMAL MG/DL Urine Leukocyte Esterase NEGATIVE NEGATIVE Urine RBC (Auto) 1+ H NEGATIVE Urine RBC 0-2 /HPF Urine WBC NONE /HPF Urine Squamous Epithelial Cells 2-5 /HPF Urine Crystals NONE /LPF Urine Bacteria NEGATIVE /HPF Urine Casts NONE /LPF Urine Mucus NEGATIVE /LPF Urine Culture Indicated NO Urine Opiates Screen NEGATIVE NEGATIVE Urine Oxycodone Screen NEGATIVE NEGATIVE Urine Methadone Screen NEGATIVE NEGATIVE Urine Propoxyphene Screen NEGATIVE NEGATIVE Urine Barbiturates Screen NEGATIVE NEGATIVE Ur Tricyclic Antidepressants Screen NEGATIVE NEGATIVE Urine Phencyclidine Screen NEGATIVE NEGATIVE Urine Amphetamines Screen NEGATIVE NEGATIVE Urine Methamphetamines Screen NEGATIVE NEGATIVE Urine Benzodiazepines Screen NEGATIVE NEGATIVE Urine Cocaine Screen NEGATIVE NEGATIVE Urine Cannabinoids Screen NEGATIVE NEGATIVE Radiology NAME: CAYDEN ROUSSEAU [facility] REC#: [id number] PT STATUS: REG ER : 1990 PHYSICIAN: DAYAMI TIJERINA DO ADMIT DATE: 06/03/18/ER Signed Date of Exam: 06/03/18 CHEST 1 VIEW, AP/PA ONLY INDICATION: Cough with headache. Dizziness. FINDINGS: Portable chest. The lungs are well-aerated and clear. Heart is not enlarged. No pulmonary edema. No hilar adenopathy. No pneumothorax or pleural effusions. No bony lesions. IMPRESSION: Normal portable chest. Dictated by: Dictated on workstation # [id number] Dict: 06/03/182044 Trans: 06/03/182051 Interpreted by: FITO SOL MD Electronically signed by: FITO SOL MD 06/03/182051 Physical Exam-(CHC) Physical Exam Vital Signs VS - Last 72 Hours, by Label 06/03/18 06/03/18 06/03/18 06/04/18 20:03 22:20 22:54 00:00 Temp 98.2 98.0 98.6 Pulse 60 58 60 Resp 20 18 20 B/P (MAP) 110/78 (89) 112/78 (89) 106/55 (72) Pulse Ox 100 98 100 99 O2 Delivery Room Air Room Air 06/04/18 06/04/18 06/04/18 06/04/18 01:00 02:00 04:00 06:00 Temp 99.3 97.6 96.6 Pulse 75 67 60 71 Resp 20 16 20 B/P (MAP) 86/51 (63) 82/46 (58) 97/67 (77) Pulse Ox 97 97 98 O2 Delivery Room Air Room Air Room Air Capillary Refill : Less Than 3 Seconds General Appearance: no apparent distress Eyes: Bilateral Eye Normal Inspection HEENT: pharynx normal Neck: supple Respiratory: lungs clear Cardiovascular: no murmur, other (clinically sounds regular) Gastrointestinal: soft Neurologic/Psychiatric: alert, oriented x 3 Skin: normal color Assessment/Plan Assessment/Plan Admission Dx 1. Syncopal episode 2. Low blood pressure and irregular heart rate. Irregular heart rate noted by telemetry Admission Status: Observation Reason for Inpatient Admission: Further evaluation of her syncopal episode. Maintain IV fluids for now Assessment & Plan 1. Syncopal episode -IV fluids lactated Ringer at 150 mL per hour -Recheck CBC as well as compensative metabolic panel in the morning of June 04, 2018 2. Low blood pressure as well as irregular heart rate noted by telemetry -Consult cardiology Clinical Quality Measures DVT/VTE Risk/Contraindication: RFS Level Per Nursing on Admit: 0=No Risk/No VTE PPX PRASANTH WINTRES MD Jun 04, 2018 06:08
[2018-06-04] MEDS: LACTATED RINGERS 1,000 ML IV SCH (06:39)
[2018-06-04 06:56] LABS: BASOPHILS % (AUTO) 0 % (0-10); EOSINOPHILS # (AUTO) 0.2 10^3/uL (0.0-0.3); EOSINOPHILS % (AUTO) 3 % (0-10); HEMATOCRIT 42 % (35-52); HEMOGLOBIN 13.7 G/DL (11.5-16.0); LYMPHOCYTES # (AUTO) 2.4 X 10^3 (1.0-4.0); LYMPHOCYTES % (AUTO) 34 % (12-44); MEAN CORPUSCULAR HEMOGLOBIN 28 PG (25-34); MEAN CORPUSCULAR HGB CONC 33 G/DL (32-36); MEAN CORPUSCULAR VOLUME 86 FL (80-99); MEAN PLATELET VOLUME 10.2 FL (7.4-10.4); MONOCYTES # (AUTO) 0.8 X 10^3 (0.0-1.0); MONOCYTES % (AUTO) 12 % (0-12); NEUTROPHILS # (AUTO) 3.6 X 10^3 (1.8-7.8); NEUTROPHILS % (AUTO) 52 % (42-75); PLATELET COUNT 220 10^3/uL (130-400); RED BLOOD COUNT 4.84 10^6/uL (4.35-5.85)
[2018-06-04 07:13] LABS: ALANINE AMINOTRANSFERASE 16 U/L (0-55); ALBUMIN 3.4 GM/DL (3.2-4.5); ALKALINE PHOSPHATASE 38 U/L (40-136); BILIRUBIN,TOTAL 0.7 MG/DL (0.1-1.0); BUN/CREATININE RATIO 10; CALCIUM 8.6 MG/DL (8.5-10.1); CARBON DIOXIDE 24 MMOL/L (21-32); CHLORIDE 107 MMOL/L (98-107); CREATININE SERUM 0.67 MG/DL (0.60-1.30); GFR ESTIMATED > 60; GLUCOSE 94 MG/DL (70-105); POTASSIUM 3.6 MMOL/L (3.6-5.0); SODIUM 138 MMOL/L (135-145); TOTAL PROTEIN 5.6 GM/DL (6.4-8.2)
--- NOTE | 2018-06-04 11:22 | Consultation-Cardiology ---
HPI-Cardiology Cardiology Consultation Date of Consultation 06/04/18 Date of Admission Time Seen by Provider: 11:19 Indication: syncope HPI 27 years old lady with no significant past medical history. Has history of recurrent headache. 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 She had few episodes of dizziness in the past, no full syncope was reported, had mild chest pain, she has borderline hypotension as a baseline. No palpitation. No shortness of breath. Fairly active. Overnight she was monitored and she is feeling well. No new complaint at this time. Home Medications & Allergies Allergies: Coded Allergies: latex (Verified Allergy, Unknown, 04/21/16) Home Medication List Reviewed: Yes [id number] Hx Patient Social History Marital Status: Employed/Student: employed Alcohol Use: Occasionally Uses Recreational Drug Use: Yes (THC, METH BY HISTORY , DENIES IV USE) Drug of Choice: HX OF THC, METH USE Smoking Status: Current Everyday Smoker Type Used: Cigarettes Recent Foreign Travel: No Recent Infectious Disease Expo: No Recent Hopitalizations: No Physical Abuse Screen: No Sexual Abuse: No Immunizations Up To Date Tetanus Booster (TDap): Less than 5yrs Past Medical History no known past medical history Family Medical History Family Medical Hx noncontributory to her current condition Review of Systems Constitutional: see HPI, malaise EENTM: see HPI, no symptoms reported Respiratory: see HPI; No cough, No dyspnea on exertion, No hemoptysis, No orthopnea, No phlegm, No short of breath, No stridor, No wheezing, No other Cardiovascular: see HPI; No chest pain, No edema, No Hx of Intervention, No palpitations; syncope; No vascular heart diseas, No other Gastrointestinal: no symptoms reported, see HPI Genitourinary: no symptoms reported, see HPI Musculoskeletal: no symptoms reported, see HPI Skin: see HPI Psychiatric/Neurological: No Symptoms Reported, See HPI Reviewed Test Results Reviewed Test Results Lab Laboratory Tests Test 06/03/18 20:10 06/03/18 20:26 06/03/18 20:58 06/04/18 06:39 Range/Units White Blood Count 6.7 7.0 4.3-11.0 10^3/uL Red Blood Count 5.08 4.84 4.35-5.85 10^6/uL Hemoglobin 14.9 13.7 11.5-16.0 G/DL Hematocrit 43 42 35-52 % Mean Corpuscular Volume 85 86 80-99 FL Mean Corpuscular Hemoglobin 29 28 25-34 PG Mean Corpuscular Hemoglobin Concent 35 33 32-36 G/DL Red Cell Distribution Width 13.2 13.0 10.0-14.5 % Platelet Count 263 220 130-400 10^3/uL Mean Platelet Volume 10.5 H 10.2 7.4-10.4 FL Neutrophils (%) (Auto) 54 52 42-75 % Lymphocytes (%) (Auto) 33 34 12-44 % Monocytes (%) (Auto) 11 12 0-12 % Eosinophils (%) (Auto) 2 3 0-10 % Basophils (%) (Auto) 0 0 0-10 % Neutrophils # (Auto) 3.6 3.6 1.8-7.8 X 10^3 Lymphocytes # (Auto) 2.2 2.4 1.0-4.0 X 10^3 Monocytes # (Auto) 0.7 0.8 0.0-1.0 X 10^3 Eosinophils # (Auto) 0.1 0.2 0.0-0.3 10^3/uL Basophils # (Auto) 0.0 0.0 0.0-0.1 10^3/uL Prothrombin Time 13.0 12.2-14.7 SEC INR Comment 1.0 0.8-1.4 Activated Partial Thromboplast Time 28 24-35 SEC Sodium Level 138 138 135-145 MMOL/L Potassium Level 3.7 3.6 3.6-5.0 MMOL/L Chloride Level 104 107 98-107 MMOL/L Carbon Dioxide Level 22 24 21-32 MMOL/L Anion Gap 12 7 5-14 MMOL/L Blood Urea Nitrogen 8 7 7-18 MG/DL Creatinine 0.75 0.67 0.60-1.30 MG/DL Estimat Glomerular Filtration Rate > 60 > 60 BUN/Creatinine Ratio 11 10 Glucose Level 91 94 70-105 MG/DL Glucometer 86 70-110 MG/DL Calcium Level 9.2 8.6 8.5-10.1 MG/DL Corrected Calcium 9.0 9.1 8.5-10.1 MG/DL Magnesium Level 2.2 1.8-2.4 MG/DL Total Bilirubin 0.6 0.7 0.1-1.0 MG/DL Aspartate Amino Transf (AST/SGOT) 18 15 5-34 U/L Alanine Aminotransferase (ALT/SGPT) 17 16 0-55 U/L Alkaline Phosphatase 46 38 L 40-136 U/L Troponin I < 0.30 <0.30 NG/ML B-Type Natriuretic Peptide < 10.0 <100.0 PG/ML Total Protein 7.3 5.6 L 6.4-8.2 GM/DL Albumin 4.3 3.4 3.2-4.5 GM/DL TSH [place] Testing 1.88 0.35-4.94 UIU/ML Serum Alcohol < 10 <10 MG/DL Monoscreen NEGATIVE NEGATIVE Group A Streptococcus Screen NEGATIVE NEGATIVE Urine Color YELLOW Urine Clarity CLEAR Urine pH 6 5-9 Urine Specific [place] 1.010 L 1.016-1.022 Urine Protein NEGATIVE NEGATIVE Urine Glucose (UA) NEGATIVE NEGATIVE Urine Ketones NEGATIVE NEGATIVE Urine Nitrite NEGATIVE NEGATIVE Urine Bilirubin NEGATIVE NEGATIVE Urine Urobilinogen NORMAL NORMAL MG/DL Urine Leukocyte Esterase NEGATIVE NEGATIVE Urine RBC (Auto) 1+ H NEGATIVE Urine RBC 0-2 /HPF Urine WBC NONE /HPF Urine Squamous Epithelial Cells 2-5 /HPF Urine Crystals NONE /LPF Urine Bacteria NEGATIVE /HPF Urine Casts NONE /LPF Urine Mucus NEGATIVE /LPF Urine Culture Indicated NO Urine Opiates Screen NEGATIVE NEGATIVE Urine Oxycodone Screen NEGATIVE NEGATIVE Urine Methadone Screen NEGATIVE NEGATIVE Urine Propoxyphene Screen NEGATIVE NEGATIVE Urine Barbiturates Screen NEGATIVE NEGATIVE Ur Tricyclic Antidepressants Screen NEGATIVE NEGATIVE Urine Phencyclidine Screen NEGATIVE NEGATIVE Urine Amphetamines Screen NEGATIVE NEGATIVE Urine Methamphetamines Screen NEGATIVE NEGATIVE Urine Benzodiazepines Screen NEGATIVE NEGATIVE Urine Cocaine Screen NEGATIVE NEGATIVE Urine Cannabinoids Screen NEGATIVE NEGATIVE Radiology NAME: CAYDEN ROUSSEAU [facility] REC#: [id number] PT STATUS: REG ER : 1990 PHYSICIAN: DAYAMI TIJERINA DO ADMIT DATE: 06/03/18/ER Signed Date of Exam: 06/03/18 CHEST 1 VIEW, AP/PA ONLY INDICATION: Cough with headache. Dizziness. FINDINGS: Portable chest. The lungs are well-aerated and clear. Heart is not enlarged. No pulmonary edema. No hilar adenopathy. No pneumothorax or pleural effusions. No bony lesions. IMPRESSION: Normal portable chest. Dictated by: Dictated on workstation # [id number] Dict: 06/03/182044 Trans: 06/03/182051 Interpreted by: FITO SOL MD Electronically signed by: FITO SOL MD 06/03/182051 Physical Exam Vital Signs Vital Signs - First Documented 06/03/18 20:03 Temp 98.2 Pulse 60 Resp 20 B/P (MAP) 110/78 (89) Pulse Ox 100 O2 Delivery Room Air Capillary Refill : Less Than 3 Seconds Height, Weight, BMI Height: 5'10.00" Weight: 168lbs. 12.0oz. [id number]; 24.4 BMI Method:Stated General Appearance: No Apparent Distress, WD/WN Eyes: Bilateral Eye Normal Inspection, Bilateral Eye PERRL, Bilateral Eye EOMI HEENT: PERRL/EOMI, TMs Normal, Normal ENT Inspection, Pharynx Normal Neck: Full Range of Motion, Normal Inspection, Non Tender, Supple, Carotid Bruit Respiratory: Chest Non Tender, Lungs Clear, Normal Breath Sounds, No Accessory Muscle Use, No Respiratory Distress Cardiovascular: Regular Rate, Rhythm, No Edema, No Gallop, No JVD, No Murmur, Normal Peripheral Pulses Gastrointestinal: Normal Bowel Sounds, No Organomegaly, No Pulsatile Mass, Non Tender, Soft Back: Normal Inspection, No CVA Tenderness, No Vertebral Tenderness Extremity: Normal Capillary Refill, Normal Inspection, Normal Range of Motion, Non Tender, No Calf Tenderness, No Pedal Edema Neurologic/Psychiatric: Alert, Oriented x3, No Motor/Sensory Deficits, Normal Mood/Affect Skin: Normal Color, Warm/Dry Lymphatic: No Adenopathy A/P-Cardiology Admission Diagnosis syncope Chest pain nonspecific etiology Hypotension Tobaccoism Assessment/Plan Syncope, probably vasovagal, has borderline hypotension, educated on increasing her fluid and salt intake. I am planning to evaluate stress test as an outpatient. She was educated on maneuvers to avoid syncope. Patient was educated on using pressure stocking. Borderline hypotension, increase fluid intake and salt intake and monitor. Chest pain nonspecific etiology, planning to evaluate stress test as an outpatientneck Tobaccoism, educated on smoking cessation Clinical Quality Measures DVT/VTE Risk/Contraindication: RFS Level Per Nursing on Admit: 0=No Risk/No VTE PPX YAMILET MCMILLAN MD Jun 04, 2018 11:22
== END 2018-06-04 12:02 | disposition home or self-care (01) ==
LOC: EDUNIT# 19:59 → ER 20:00 → UNDOADMOB 21:25 → 4TH 21:25 → UNDODISOB 06-04 13:07
PROVIDERS: ADMIT Family Medicine; ATTEND Family Medicine
DX: R55 Syncope and collapse (principal); I95.9 Hypotension, unspecified; R07.9 Chest pain, unspecified; I49.9 Cardiac arrhythmia, unspecified; F17.210 Nicotine dependence, cigarettes, uncomplicated
CPT/HCPCS: 36415; 70450; 71045; 80053; 80306; 80320; 81000; 82962; 83735; 83880; 84443; 84484; 85025; 85610; 85730; 86308; 87430; 87804; 93005; 93041; 96361; 96374; G0378

== ENCOUNTER → 2018-07-11 | Outpatient (CLI) | payer OTHER ==
[2018-07-11 12:04] VITALS: BP 118/69
--- NOTE | 2018-07-11 12:04 | Cardiology Stress Test Report ---
Stress Test Report Date of Procedure/Referring: Date of Procedure: Jul 11, 2018 PCP Yamilet Gaming MD Admitting Physician Donato Thacker MD Baseline Heart Rate: 81 Baseline Blood Pressure: Blood Pressure Systolic: 118 Blood Pressure Diastolic: 69 Baseline EKG: Baseline EKG: sinus rhythm with normal axis, RSR' Summary/Conclusion: Summary: In summary, the patient started exercising with a baseline heart rate, blood pressure and EKG mentioned above Patient was able to exercise for a total of 12 minutes on Yuniel protocol, 12.3 METs Maximum heart rate 161 Maximum blood pressure 170/65 Stress EKG no ischemic changes, no arrhythmia Recovery EKG Return to baseline Conclusion: 1. Good exercise tolerance for a total of 12 minutes on Yuniel protocol, 12.3 METs, achieving percent of maximum expected heart rate 2. No ischemia or arrhythmia on EKG YAMILET GAMING MD Jul 11, 2018 12:04
== END ==
LOC: CARD 09:29
PROVIDERS: ATTEND Internal Medicine Cardiovascular Disease
DX: R07.89 Other chest pain (principal); R55 Syncope and collapse; Z72.0 Tobacco use
CPT/HCPCS: 93306

== ENCOUNTER → 2018-07-27 | Outpatient (CLI) | payer OTHER ==
[2018-07-27] VITALS (20 sets, daily range): BP systolic 66–118; BP diastolic 40–83
[~2018-07-27] VITALS: Ht 175.3 cm; Wt 73.5 kg
[~2018-07-27] MED LIST changes: +ATROPINE INJECTION 1 MG/10 ML SYR (ABBOTT) ONE; +NS IV 1000 ML 1,000 ML IV SCH; +NS IV 1000 ML 1,000 ML ONE
--- NOTE | 2018-07-27 14:10 | Cardiology Tilt Table Test ---
Cardiology-Tilt Table Test Tilt Table Test Date 07/27/18 Baseline Vitals Vital Signs Date Time Temp Pulse Resp B/P (MAP) Pulse Ox O2 Delivery O2 Flow Rate FiO2 07/27/18 11:18 68 113/69 (84) 98 Vital Signs VS - Last 72 Hours, by Label 07/27/18 07/27/18 07/27/18 07/27/18 11:18 11:21 11:22 11:24 Pulse 68 74 74 86 B/P (MAP) 113/69 (84) 106/79 (88) 102/83 (89) 101/68 (79) Pulse Ox 98 97 98 99 07/27/18 07/27/18 07/27/18 07/27/18 11:25 11:26 11:27 11:28 Pulse 77 72 54 56 B/P (MAP) 112/76 (88) 111/79 (90) 107/79 (88) 118/71 (87) Pulse Ox 98 07/27/18 07/27/18 07/27/18 07/27/18 11:29 11:30 11:32 11:34 Pulse 54 69 70 101 B/P (MAP) 112/70 (84) 115/72 (86) 116/67 (83) 98/59 (72) Pulse Ox 98 97 07/27/18 07/27/18 07/27/18 07/27/18 11:36 11:37 11:38 11:40 Pulse 90 49 52 B/P (MAP) 66/40 (49) 91/66 (74) 108/65 (79) 109/73 (85) Pulse Ox 98 07/27/18 07/27/18 07/27/18 07/27/18 11:45 11:50 12:00 12:04 Pulse 52 63 71 66 B/P (MAP) 110/67 (81) 110/47 (68) 98/81 (87) 99/65 (76) Pulse Ox 98 97 98 Patient was tilted to 75 degrees for [10] minutes, then returned to supine position, given [2] sublingual nitroglycerin tablets, then tilted again to 75 degrees for [15] minutes. During test, patient was: had a syncopal event at minute (with HR BP Rhythm ) In Conclusion;: Positive Tilt Table Test Patient had a hypotensive episode with a blood pressure down to 80 systolic and then became bradycardic with a heart rate in the 40s, it was after receiving nitroglycerin recovering for 5 minutes. Patient was placed in Trendelenburg position and given IV fluid with resolution of her symptoms. Conclusion Positive tilt table test with vasodepressor syncope resulted in severe hypotension. Instructions Patient was educated on increasing fluid intake and using YAMILET Rojas MD Jul 27, 2018 14:09
== END ==
LOC: CARD 10:52
PROVIDERS: ATTEND Internal Medicine Cardiovascular Disease
DX: R07.9 Chest pain, unspecified (principal); R55 Syncope and collapse; Z48.89 Encounter for other specified surgical aftercare; Z72.0 Tobacco use
CPT/HCPCS: 93660

== ENCOUNTER 2018-08-03 09:15 | Outpatient (RCR) | payer OTHER ==
[~2018-08-03 09:15] MED LIST changes: -ATROPINE INJECTION 1 MG/10 ML SYR (ABBOTT) ONE; -HYDR-3454 PO; +HYDR-3455 PO; -NS IV 1000 ML 1,000 ML IV SCH; -NS IV 1000 ML 1,000 ML ONE
== END 2018-11-01 | disposition home or self-care (01) ==
LOC: CARD 09:15
PROVIDERS: ATTEND Internal Medicine Cardiovascular Disease
DX: Z01.810 Encounter for preprocedural cardiovascular examination (principal); R07.9 Chest pain, unspecified; R55 Syncope and collapse; Z72.0 Tobacco use
CPT/HCPCS: 93225; 93226

== ENCOUNTER 2018-12-17 19:09 | Observation (INO) | payer OTHER ==
[~2018-12-17] VITALS: Ht 177.8 cm; Wt 74.5 kg
[2018-12-17] MEDS ORDERED: NS IV 1000 ML 1,000 ML IV SCH (19:13)
--- OUTSIDE RECORDS SUMMARY | 2018-12-17 19:16 | XMS REPORT ---
Author Author Migration, Doctor Organization [facility] Address Unknown Phone Unavailable Care Team Providers Care Tobacco Checkout Clerk Name Role Phone Migration, Doctor Unavailable Unavailable PROBLEMS Type Condition ICD9-CM Code [id number] Code Onset Dates Condition Status SNOMED Code Problem Seasonal allergic rhinitis, unspecified allergic rhinitis trigger J30.2 Active 686046692 Problem Abdominal wall mass R22.2 Active [id number] ALLERGIES No Information ENCOUNTERS Encounter Location Date Diagnosis [facility] [address] [place] [phone] Sep, 2018 Sore throat J02.9 and Viral upper respiratory tract infection J06.9 [facility] [address] [place] [phone] Aug, Acute gastroenteritis K52.9 [facility] [address] [place] [phone] Apr, Light headed R42 ; Gastroenteritis K52.9 and Nausea R11.0 [facility] [address] [place] [phone] -[phone] Aug, Cough R05 and Nasopharyngitis acute J00 [facility] [address] [place] [address] [phone] -[phone] 04 Aug, 2017 Other viral agents as the cause of diseases classified elsewhere B97.89 and Acute upper respiratory infection, unspecified J06.9 [facility] [address] [place] [address] [phone] -[phone] 02 Aug, 2017 Cough R05 and Acute nasopharyngitis J00 [facility] [address] [place] [address] [phone] [phone] 16 Jun, 2017 Sore throat J02.9 ; Body aches R52 and Viral syndrome B34.9 [facility] [address] [phone] Jun, Dental caries K02.9 [facility] [address] [id number] May, Dental examination Z01.20 [facility] [id number] [place] [phone] May, Dental examination Z01.20 [facility] [id number] [place] [address] 97605- 1256 Mar, Acute bilateral low back pain without sciatica M54.5 and Abdominal wall mass R22.2 [facility] [address] [address] Mar, Viral gastroenteritis A08.4 [facility] [address] [address]284- [address] 17 Feb, 2017 [facility] [id number] [place] [address] 60383- 7923 Feb, [facility] [id number] [place] [address] 77443- 0140 Feb, Right foot injury, initial encounter S99.921A [facility] [id number] [place] [address] 33196 -4169 08 Jan, 2017 Sore throat J02.9 [facility] [id number] [place] [address] 26771 -[phone] 08 Jan, 2017 [facility] [id number] [place] [address] 37290 -[phone] 14 Oct, 2016 Gastroenteritis K52.9 [facility] [address] 42091 -[phone] 16 Sep, 2016 Sore throat J02.9 and Seasonal allergic rhinitis, unspecified allergic rhinitis trigger J30.2 [facility] [id number] [place] [address] 69821- 8383 10 Sep, 2016 [facility] [id number] [place] [address] 70503 -[phone] 09 Sep, 2016 Sore throat J02.9 ; Acute non-recurrent frontal sinusitis J01.10 and Allergic rhinitis, unspecified allergic rhinitis trigger, unspecified rhinitis seasonality J30.9 [facility] [address] 36237 -9242 Aug, Sore throat J02.9 ; Fever R50.9 ; Strep pharyngitis J02.0 and Influenza A J10.1 [facility] [address] 02235 -[phone] Jun, Sore throat J02.9 ; Seasonal allergic rhinitis, unspecified allergic rhinitis trigger J30.2 and Strep pharyngitis J02.0 [facility] [id number] [place] [address] [phone] -[phone] Jun, [facility] [address] 72774- 3468 Mar, Abdominal wall mass R19.00 [place] [address] 93910- 6006 Mar, Abdominal wall pain R10.9 [facility] [address] 9[address]80[address] [phone] 13 Jan, 2016 Examination, physical, employee Z02.89 and Screening for tuberculosis Z11.1 [facility] [id number] [place] [phone] December, Dental caries K02.9 [facility] [address] [phone] December, Dental examination Z01.20 [facility] [address] [id number] Nov, Encounter for dental examination Z01.20 [facility] [address] [id number] Nov, Dental examination V72.2 [facility] [address] [facility] [id number] [id number] Nov, Dental examination Z01.20 [facility] [address] [id number] Oct, Encounter for dental examination Z01.20 [facility] [address] [address] Jul, Gastroenteritis K52.9 [facility] [id number] [place] [address] 70089- 9144 Jun, [facility] [id number] [place] [address] 25500- 7230 May, [facility] [id number] [place] [address] 33385- 3929 Mar, [facility] [id number] [place] [address] 70695- 2875 Mar, Conjunctivitis of left eye 372.30 [facility] [id number] [place] [address] 05947- [phone] 08 Jan, 2015 Dysuria 788.1 ; Urinary tract infection, site not specified 599.0 and Acute sinusitis 461.9 [facility] [id number] [place] [address] 70432- 1272 Jan, [facility] [id number] [place] [address] 92909- [phone] Jan, Pharyngitis 462 [facility] [id number] [place] [address] 40752- 6409 Nov, [facility] [id number] [place] [address] 57241- 9181 Nov, [facility] [id number] [place] [address] 75132- 1243 Aug, [facility] [id number] [place] [address] 92160- 8650 Aug, [facility] [place] [facility] [address] [id number] [place] [address] Jun, [facility] [place] [facility] [address] [id number] [place] [address] Jun, [facility] [place] [facility] [address] [id number] [place] Jun, [facility] [place] [facility] [address] [id number] [place] [address] 4[address] Jun, [facility] [place] [facility] [address] [id number] [place] [address] Feb, [facility] [place] [facility] [address] [id number] [place] [address] 0247 Feb, [facility] [place] [facility] [address] [id number] [place] [address] December, [facility] [place] [facility] [address] [id number] [place] [address] December, [facility] [place] [facility] [address] [id number] [place] [address] 8609 December, [facility] [place] [facility] [address] [id number] [place] [address] 1604 December, [facility] [place] [facility] [address] [id number] [place] [address] December, [facility] [place] [facility] [address] [id number] [place] [address] 7[address] Oct, [facility] [place] [facility] [address] [id number] [place] [address] 7783 Oct, [facility] [place] [facility] [address] [id number] [place] [address] 2402 Sep, [facility] [place] [facility] [address] [id number] [place] [address] 46[address] Sep, [facility] [place] [facility] [address] [address] Aug, [facility] [address] [address] Aug, [facility] [address] [address] Jul, [facility] [address] [address] Jul, [facility] [address] [address] Jul, [facility] [id number] [place] [address] 80577- 4415 Jul, [facility] [address] [address] Jun, [facility] [address] [address] Jun, [facility] [id number] [address] 6[address] Sep, [facility] [address] [address] Mar, IMMUNIZATIONS No Known Immunizations SOCIAL HISTORY Never Assessed REASON FOR VISIT EMR[place] [place] CARE VITAL SIGNS MEDICATIONS Unknown Medications RESULTS No Results PROCEDURES No Known procedures INSTRUCTIONS MEDICATIONS ADMINISTERED No Known Medications MEDICAL (GENERAL) HISTORY Type Description Date Surgical History Hysterectomy-partial 04/2013 Surgical History section 08/2011 Surgical History tubal ligation 10/2011 Surgical History scar tissue removed from csection scar 2016
--- OUTSIDE RECORDS SUMMARY | 2018-12-17 19:19 | XMS REPORT | Continuity of Care Document ---
Author Organization Unknown Address Unknown Allergies Active Description Code Type Severity Reaction Onset Reported/Identified Relationship to Patient Clinical Status Yes No Known Drug Allergies [id number] Drug Allergy Unknown N/A 04/30/2008 Yes NKDA NKDA Mild N/ A 11/10/2008 Yes latex [id number] Drug Allergy Unknown N/A 04/21/2016 Medications There is no data. Problems Date Dx Coded Attending Type Code Diagnosis Diagnosed By 02/13/2008 ANDRES SWEENEY DO 682.9 CELLULITIS AND ABSCESS OF UNSPECIFIED SITES 02/13/2008 ANDRES SWEENEY DO 919.4 INSECT BITE NONVENOMOUS OF OTHER MULTIPLE AND UNSPECIFIED SITES WITHOUT INFECTION 02/13/2008 EUGENE DOWNING APRN 682.9 CELLULITIS AND ABSCESS OF UNSPECIFIED SITES 02/13/2008 EUGENE DOWNING APRN 919.4 INSECT BITE NONVENOMOUS OF OTHER MULTIPLE AND UNSPECIFIED SITES WITHOUT INFECTION 02/13/2008 ARIAN BAEZ APRN 682.9 CELLULITIS AND ABSCESS OF UNSPECIFIED SITES 02/13/2008 ARIAN BAEZ APRN 919.4 INSECT BITE NONVENOMOUS OF OTHER MULTIPLE AND UNSPECIFIED SITES WITHOUT INFECTION 02/13/2008 NASRA JACOBSON APRN R 682.9 CELLULITIS AND ABSCESS OF UNSPECIFIED SITES 02/13/2008 NASRA JACOBSON APRN R 919.4 INSECT BITE NONVENOMOUS OF [...] DOWNING APRNIA R 919.0 ABRASION UNSPECIFIED 05/07/2008 SASHA CRUZ ARIAN A 919.0 ABRASION UNSPECIFIED 05/07/2008 NASRA JACOBSON APRN R 919.0 ABRASION UNSPECIFIED 05/07/2008 SWEENEY DO, [...] DOWNING APRN R 462 sore throat 04/10/2009 GURU BAEZ APRNYL A 462 sore throat 04/10/2009 NASRA JACOBSON APRN R 462 sore throat 04/10/2009 SWEENEY DO, ANDRES K 462 sore throat 04/10/2009 ANDRES SWEENEY DO K 462 sore throat 04/10/2009 JOSE SWEENEY DOA K 462 sore throat 04/10/2009 YANIV BROWNLEE MD 462 sore throat 03/27/2010 ANDRES SWEENEY DO K NODX NO DIAGNOSIS 03/27/2010 EUGENE DOWNING APRN R NODX NO DIAGNOSIS 03/27/2010 ARIAN BAEZ APRN A NODX NO DIAGNOSIS 03/27/2010 NASRA JACOBSON APRN R NODX NO DIAGNOSIS 03/27/2010 ANDRES SWEENEY DO K NODX NO DIAGNOSIS 03/27/2010 JOSE SWEENEY DOA K NODX NO DIAGNOSIS 03/27/2010 JOSE SWEENEY DOA K NODX NO DIAGNOSIS 03/27/2010 YANIV BROWNLEE MD NODX NO DIAGNOSIS 12/10/2010 Ot 640.93 HEM EARLY PREG-ANTEPART 12/11/2010 Ot 632 MISSED 12/16/2010 Ot 729.5 PAIN IN LIMB 09/02/2011 Ot 644.03 THRT JOYCE LABOR-ANTEPART 09/02/2011 Ot 651.03 TWIN -ANTEPART 09/02/2011 Ot V91.00 TWIN GEST, UNSPEC # PLACENTA, UNSP # AMN 06/16/2013 ANDRES SWEENEY DO K V04.81 FLU SHOT 06/16/2013 EUGENE DOWNING APRN V04.81 FLU SHOT 06/16/2013 ARIAN BAEZ APRN V04.81 FLU SHOT 06/16/2013 NASRA JACOBSON APRN V04.81 FLU SHOT 06/16/2013 ANDRES SWEENEY DO V04.81 FLU SHOT 06/16/2013 JOSE SWEENEY DOA K V04.81 FLU SHOT 06/16/2013 JOSE SWEENEY DOA K V04.81 FLU SHOT 06/16/2013 YANIV BRWONLEE MD V04.81 FLU SHOT 07/24/2013 EUGENE DOWNING APRN 034.0 STREP THROAT 07/24/2013 ARIAN BAEZ APRN A 034.0 STREP THROAT 07/24/2013 NASRA JACOBSON APRN 034.0 STREP THROAT 07/24/2013 ANDRES SWEENEY DO 034.0 STREP THROAT 07/24/2013 ANDRES SWEENEY DO K 034.0 STREP THROAT 07/24/2013 SWEENEY DO, [...] YANIV BROWNLEE MD V74.1 TB SCREENING 11/22/2013 KOURTNEY IYER, YAO Vazquez Ot 599.0 URIN TRACT INFECTION NOS 11/22/2013 KOURTNEY IYER, YAO Vazquez Ot 787.01 NAUSEA WITH VOMITING 11/24/2013 HILARIO MASON MD Ot 276.8 HYPOPOTASSEMIA 11/24/2013 HILARIO MASON MD Ot 599.0 URIN TRACT INFECTION NOS 11/24/2013 HILARIO MASON MD Ot 787.01 NAUSEA WITH VOMITING 12/12/2013 ANDRES SWEENEY DO 789.09 ABDOMINAL PAIN OTHER SPECIFIED SITE 12/12/2013 ANDRES SWEENEY DO 789.61 ABDOMINAL TENDERNESS RIGHT UPPER QUADRANT 12/12/2013 ANDRES SWEENEY DO 789.09 ABDOMINAL PAIN OTHER SPECIFIED SITE 12/12/2013 [...] R19.04 LEFT LOWER QUADRANT ABDOMINAL SWELLING, 04/21/2016 LAWRENCE KIM OZUNA Ot R19.04 LEFT LOWER QUADRANT ABDOMINAL SWELLING, [...] OR PINCHED BETW M 10/23/2016 TRISH MAURICIO BARREL INSPECTOR Ot Y99.8 OTHER EXTERNAL CAUSE STATUS 10/23/2016 YANIV BROWNLEE MD Ot R19.04 LEFT LOWER QUADRANT ABDOMINAL SWELLING, 10/23/2016 KIM LAWRENCE DO Ot R19.04 LEFT LOWER QUADRANT ABDOMINAL SWELLING, 10/26/2016 TRISH MAURICIO BARREL INSPECTOR Ot S60.132A CONTUSION OF LEFT MIDDLE FINGER W DAMAGE 10/26/2016 TRISH MAURICIO APRN Ot W23.0XXA CAUGHT, CRUSH, JAMMED, OR PINCHED BETW M 10/26/2016 TRISH MAURICIO APRN Ot Y99.8 OTHER EXTERNAL CAUSE STATUS 02/10/2017 DAYAMI TIJERINA DO Ot F17.210 NICOTINE DEPENDENCE, CIGARETTES, UNCOMPL 02/10/2017 LILLIANA DAYAMI OZUNA Ot L03.115 CELLULITIS OF RIGHT LOWER LIMB 02/10/2017 DELAVAN DAYAMI OZUNA Ot M79.671 PAIN IN RIGHT FOOT 02/10/2017 DELAVAN PAMELA OZUNAShan Connell Ot Z23 ENCOUNTER FOR IMMUNIZATION 02/11/2017 LILLIANA DAYAMI OZUNA Ot F17.210 NICOTINE DEPENDENCE, CIGARETTES, UNCOMPL 02/11/2017 LILLIANA DAYAMI OZUNA Ot L03.115 CELLULITIS OF RIGHT LOWER LIMB 02/11/2017 DELAVAN DAYAMI OZUNA Ot M79.671 PAIN IN RIGHT FOOT 02/11/2017 DELAVAN PAMELA OZUNAA Ko Ot Z23 ENCOUNTER FOR IMMUNIZATION 06/04/2018 MANDY WINTERS MD, Ot F17.210 NICOTINE DEPENDENCE, CIGARETTES, UNCOMPL 06/04/2018 MANDY WINTERS MD Ot I49.9 CARDIAC ARRHYTHMIA, UNSPECIFIED 06/04/2018 MANDY WINTERS MD Ot I95.9 HYPOTENSION, UNSPECIFIED 06/04/2018 MANDY WINTERS MD Ot R07.9 CHEST PAIN, UNSPECIFIED 06/04/2018 MANDY WINTERS MD Ot R55 SYNCOPE AND COLLAPSE 07/13/2018 YAMILET MCMILLAN MD Ot R07.89 OTHER CHEST PAIN 07/13/2018 YAMILET MCMILLAN MD Ot R55 SYNCOPE AND COLLAPSE 07/13/2018 YAMILET MCMILLAN MD Ot Z72.0 TOBACCO USE 07/29/2018 YAMILET MCMILLAN MD Ot R07.9 CHEST PAIN, UNSPECIFIED 07/29/2018 YAMILET MCMILLAN MD Ot R55 SYNCOPE AND COLLAPSE 07/29/2018 YAMILET MCMILLAN MD Ot Z48.89 ENCOUNTER FOR OTHER SPECIFIED SURGICAL A 07/29/2018 YAMILET MCMILLAN MD Ot Z72.0 TOBACCO USE 08/16/2018 YAMILET MCMILLAN MD Ot R07.9 CHEST PAIN, UNSPECIFIED 08/16/2018 YAMILET MCMILLAN MD Ot R55 SYNCOPE AND COLLAPSE 08/16/2018 YAMILET MCMILLAN MD Ot Z48.89 ENCOUNTER FOR OTHER SPECIFIED SURGICAL A 08/16/2018 YAMILET MCMILLAN MD Ot Z72.0 TOBACCO USE 08/25/2018 YAMILET MCMILLAN MD Ot R07.9 CHEST PAIN, UNSPECIFIED 08/25/2018 YAMILET MCMILLAN MD Ot R55 SYNCOPE AND COLLAPSE 08/25/2018 YAMILET MCIMLLAN MD Ot Z01.810 ENCOUNTER FOR PREPROCEDURAL CARDIOVASCUL 08/25/2018 YAMILET MCMILLAN MD Ot Z72.0 TOBACCO USE 11/01/2018 YAMILET MCMILLAN MD Ot R07.9 CHEST PAIN, UNSPECIFIED 11/01/2018 YAMILET MCMILLAN MD Ot R55 SYNCOPE AND COLLAPSE 11/01/2018 YAMILET MCMILLAN MD Ot Z01.810 ENCOUNTER FOR PREPROCEDURAL CARDIOVASCUL 11/01/2018 YAMILET MCMILLAN MD Ot Z72.0 TOBACCO USE 11/02/2018 YAMILET MCMILLAN MD Ot R07.9 CHEST PAIN, UNSPECIFIED 11/02/2018 YAMILET MCMILLAN MD Ot R55 SYNCOPE AND COLLAPSE 11/02/2018 YAMILET MCMILLAN MD Ot Z01.810 ENCOUNTER FOR PREPROCEDURAL CARDIOVASCUL 11/02/2018 YAMILET MCMILLAN MD Ot Z72.0 TOBACCO USE Procedures Code Description Performed By Performed On 96.49 12/10/2010 26872 STREP A (IN-HOUSE) 07/24/2013 59876 TB TEST INTRADERMAL 09/07/2013 24307 URINE DRUG SCREEN (IN-HOUSE ) 09/07/2013 99843 UA W/ CULTURE IF INDICATED 12/12/[address] ABDOMEN & PELVIS W/ & W/ [...] 15:32 Bacteria identified See scanned report NRG Complete blood count (CBC) with automated white [...] INFLUENZA A AND B ANTIGENS BY IA NRG Serum or plasma lithium measurement (moles/volume) - [...] <10 Streptococcus pyogenes antigen detection - 06/03/18 20: Streptococcus pyogenes antigen detection NEGATIVE NEGATIVE Bacterial throat culture - 06/03/18 20:26 Bacterial throat culture NBS NRG Complete urinalysis with reflex to culture - [...] NEGATIVE NEGATIVE Urine propoxyphene detection NEGATIVE NEGATIVE Complete blood count (CBC) with automated white blood cell (WBC) differential - 06/04/18 06:39 Blood leukocytes automated count (number/volume) 7.0 10*3/uL 4.3-11.0 Blood erythrocytes automated count (number/volume) 4.84 10*6/uL 4.35-5.85 Venous blood hemoglobin measurement (mass/volume) 13.7 g/dL 11.5-16.0 Blood hematocrit (volume fraction) 42 % 35-52 Automated erythrocyte mean corpuscular volume 86 [foz_us] 80-99 Automated erythrocyte mean corpuscular hemoglobin (mass per erythrocyte) 28 pg 25-34 Automated erythrocyte mean corpuscular hemoglobin concentration measurement ( mass/volume) 33 g/dL 32-36 Automated erythrocyte distribution width ratio 13.0 % 10.0-14.5 Automated blood platelet count (count/volume) 220 10*3/uL 130-400 Automated blood platelet mean volume measurement 10.2 [foz_us] 7.4-10.4 Automated blood neutrophils/100 leukocytes 52 % 42-75 Automated blood lymphocytes/100 leukocytes 34 % 12-44 Blood monocytes/100 leukocytes 12 % 0-12 Automated blood eosinophils/100 leukocytes 3 % 0-10 Automated blood basophils/100 leukocytes 0 % 0-10 Blood neutrophils automated count (number/volume) 3.6 10*3 1.8-7.8 Blood lymphocytes automated count (number/volume) 2.4 10*3 1.0-4.0 Blood monocytes automated count (number/volume) 0.8 10*3 0.0-1.0 Automated eosinophil count 0.2 10*3/uL 0.0-0.3 Automated blood basophil count (count/volume) 0.0 10*3/uL 0.0-0.1 Comprehensive metabolic panel - 06/04/18 06:39 Serum or plasma sodium measurement (moles/volume) 138 mmol/L 135-145 Serum or plasma potassium measurement (moles/volume) 3.6 mmol/L 3.6-5.0 Serum or plasma chloride measurement (moles/volume) 107 mmol/L 98-107 Carbon dioxide 24 mmol/L 21-32 Serum or plasma anion gap determination (moles/volume) 7 mmol/L 5-14 Serum or plasma urea nitrogen measurement (mass/volume) 7 mg/dL 7-18 Serum or plasma creatinine measurement (mass/volume) 0.67 mg/dL 0.60-1.30 Serum or plasma urea nitrogen/creatinine mass ratio 10 NRG Serum or plasma creatinine measurement with calculation of estimated glomerular filtration rate > NRG Serum or plasma glucose measurement (mass/volume) 94 mg/dL 70-105 Serum or plasma calcium measurement (mass/volume) 8.6 mg/dL 8.5-10.1 Serum or plasma total bilirubin measurement (mass/volume) 0.7 mg/dL 0.1-1.0 Serum or plasma alkaline phosphatase measurement (enzymatic activity/volume) 38 U/L 40-136 Serum or plasma aspartate aminotransferase measurement (enzymatic activity/ volume) 15 U/L 5-34 Serum or plasma alanine aminotransferase measurement (enzymatic activity/volume ) 16 U/L 0-55 Serum or plasma protein measurement (mass/volume) 5.6 g/dL 6.4-8.2 Serum or plasma albumin measurement (mass/volume) 3.4 g/dL 3.2-4.5 CALCIUM CORRECTED 9.1 mg/dL 8.5-10.1 Encounters ACCT No. Visit Date/Time Discharge Status Pt. Type Provider Facility Loc./Unit Complaint [id number] 06/29/2014 11:14:00 06/29/2014 23:59:59 CLS Outpatient YANIV BROWNLEE MD [id number] 02/15/2014 14:47:00 02/15/2014 23:59:59 CLS Outpatient ANDRES SWEENEY DO [id number] 12/12/2013 15:36:00 12/12/2013 23:59:59 CLS Outpatient ANDRES SWEENEY DO [id number] 09/07/2013 13:42:00 09/07/2013 23:59:59 CLS Outpatient NASRA JACOBSON APRN [id number] 09/07/2013 13:42:00 09/07/2013 23:59:59 CLS Outpatient ANDRES SWEENEY DO [id number] 08/04/2013 09:58:00 08/04/2013 23:59:59 CLS Outpatient ARIAN BAEZ APRN [id number] 07/24/2013 12:26:00 07/24/2013 23:59:59 CLS Outpatient EUGENE DOWNING APRN [id number] 06/16/2013 12:29:00 06/16/2013 23:59:59 CLS Outpatient ANDRES SWEENEY DO [id number] 11/02/2018 08:30:00 11/02/2018 23:59:59 CLS Preadmit YAMILET MCMILLAN MD [facility] CARD CHEST PAIN [id number] 08/03/2018 09:15:00 11/01/2018 00:01:00 DIS Outpatient YAMILET MCMILLAN MD [facility] CARD CHEST PAIN [id number] 07/27/2018 10:52:00 07/27/2018 23:59:59 CLS Outpatient YAMILET MCMILLAN MD [facility] CARD CHEST PAIN,SYNCOPE [id number] 07/11/2018 09:29:00 07/11/2018 23:59:59 CLS Outpatient YAMILET MCMILLAN MD [facility] CARD CHEST PAIN,TOBACCO USER, SYNCOPE [id number] 06/03/2018 22:23:00 06/04/2018 12:02:00 DIS Inpatient MANDY WINTERS MD [facility] 4TH NEAR-SYNCOPE,GENERALIZED WEAKNESS,HEADACHE [id number] 02/09/2017 23:15:00 02/10/2017 00:49:00 DIS Emergency LILLIANA DAYAMI [facility] ER RT FOOT INJURY,BED FRAME FELL ON FOOT [id number] 10/23/2016 09:47:00 10/23/2016 10:42:00 DIS Emergency TRISH MAURICIO APRN [facility] ER LEFT MIDDLE FINGER INJURY [id number] 09/18/2016 14:59:00 09/18/2016 15:45:00 DIS Outpatient YAO OCONNELL MD [facility] LAB MUMPS [id number] 09/18/2016 14:12:00 09/18/2016 14:12:00 CAN Emergency ROBINA GOMEZ MD [facility] ER SORE THROAT/FEVER FATIGUE [id number] 04/23/2016 06:06:00 04/23/2016 12:15:00 DIS Outpatient KIM LAWRENCE DO [facility] SDC ABDOMINAL WALL MASS [id number] 04/21/2016 09:44:00 04/21/2016 12:36:00 DIS Outpatient KIM LAWRENCE DO D [facility] PREOP ABDOMINAL WALL MASS [id number] 04/10/2016 07:51:00 04/10/2016 23:59:59 CLS Outpatient KIM LAWRENCE DO D [facility] RAD ABD WALL MASS [id number] 04/03/2016 09:00:00 04/03/2016 23:59:59 CLS Outpatient TORRIE IYER, YANIV Hills [facility] RAD ABDOMINAL WALL PAIN, LL ABD MASS [id number] 11/23/2013 19:45:00 11/24/2013 00:02:00 DIS Emergency ISABELLA IYER, HILARIO Noe [facility] ER VOMITING,DIARRHEA,ABD PAIN [id number] 11/22/2013 08:46:00 11/22/2013 10:55:00 DIS Emergency YAO OCONNELL MD [facility] ER VOMITING [id number] 12/17/2018 19:12:00 ACT Emergency YAO OCONNELL MD [facility] ER PASSED OUT [id number] 06/15/2018 08:26:00 Document Registration [id number] 04/03/2016 08:58:00 Document Registration [id number] 11/25/2012 13:50:00 Document Registration [id number] 09/02/2011 13:20:00 Document Registration [id number] 12/15/2010 22:21:00 Document Registration [id number] 12/15/2010 11:24:00 Document Registration [id number] 12/10/2010 13:49:00 Document Registration [id number] 12/10/2010 13:17:00 Document Registration [id number] 09/10/2018 14:10:00 09/10/2018 23:59:59 CLS Outpatient TORRIE IYER, YANIV LOMBARDO [facility]
[2018-12-17 19:33] LABS: BASOPHILS % (AUTO) 0 % (0-10); EOSINOPHILS # (AUTO) 0.1 10^3/uL (0.0-0.3); EOSINOPHILS % (AUTO) 2 % (0-10); HEMATOCRIT 42 % (35-52); LYMPHOCYTES # (AUTO) 2.2 X 10^3 (1.0-4.0); LYMPHOCYTES % (AUTO) 33 % (12-44); MEAN CORPUSCULAR HEMOGLOBIN 28 PG (25-34); MEAN CORPUSCULAR HGB CONC 33 G/DL (32-36); MEAN CORPUSCULAR VOLUME 85 FL (80-99); MEAN PLATELET VOLUME 11.2 FL (7.4-10.4); MONOCYTES # (AUTO) 0.5 X 10^3 (0.0-1.0); MONOCYTES % (AUTO) 8 % (0-12); NEUTROPHILS # (AUTO) 3.8 X 10^3 (1.8-7.8); NEUTROPHILS % (AUTO) 57 % (42-75); PLATELET COUNT 196 10^3/uL (130-400); WHITE BLOOD COUNT 6.7 10^3/uL (4.3-11.0)
--- NOTE | 2018-12-17 19:35 | ED Syncope ---
General Chief Complaint: Dizziness/Syncope Stated Complaint: PASSED OUT Source of Information: Patient Exam Limitations: No Limitations History of Present Illness Date Seen by Provider: December 17, 2018 Time Seen by Provider: 19:07 Initial Comments Here by EMS from [facility]. 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 Does have history of postural hypotension with positive tilt table test. She is post to be on fludrocortisone but has not had prescription filled since August. She states that she had a couple left over and took one this morning may be. She is not sure. Denies drug use. EMS noted bradycardia and hypotension and initiated liter of normal saline. This did improve her blood pressure from 80 systolic to low 100s. Denies nausea or vomiting. Denies injury. Admits that last night she had findings concerning for urinary tract infection including dysuria and low back pain. She has had that before and states feels similar. Timing/Prior Episodes: Recent History, Single Episode Today Symptoms Prior to Episode: Lightheadedness Loss of Consciousness: Unsure Current Symptoms: No Chest Pain; Diaphoresis; No Headache; Lightheadedness, Weakness Allergies and Home Medications Allergies Coded Allergies: latex (Verified Allergy, Unknown, 04/21/16) Home Medications Cetirizine HCl 10 Mg Capsule, 10 MG PO DAILY, (Reported) Naproxen 500 Mg Tablet, 500 MG PO BID Prescribed by: DAYAMI TIJERINA on 02/10/1723 Sulfamethoxazole/Trimethoprim 1 Each Tablet, 1 EACH PO BID Prescribed by: DAYAMI TIJERINA on 02/10/1723 Tramadol HCl 50 Mg Tablet, 50 MG PO Q4H Prescribed by: DAYAMI TIJERINA on 02/10/1723 Patient Home Medication List Home Medication List Reviewed: Yes Review of Systems Constitutional: chills, diaphoresis; No fever; weakness EENTM: no symptoms reported Respiratory: no symptoms reported Cardiovascular: see HPI; No chest pain; syncope Gastrointestinal: No abdominal pain, No nausea, No vomiting Genitourinary: dysuria, pain Musculoskeletal: back pain (low-back pain); No muscle pain Skin: no symptoms reported Psychiatric/Neurological: See HPI All Other Systems Reviewed Negative Unless Noted: Yes Past Tafvqqe-Tquinh-Xcpann Hx Past Med/Social Hx: Reviewed Nursing Past Med/Soc Hx Patient Social History Alcohol Use: Denies Use Recreational Drug Use: No Drug of Choice: HX OF THC, METH USE Smoking Status: Current Everyday Smoker Type Used: Cigarettes Recent Hopitalizations: No Immunizations Up To Date Tetanus Booster (TDap): Less than 5yrs Seasonal Allergies Seasonal Allergies: Yes Past Medical History Surgeries: Yes Hysterectomy Respiratory: No Cardiac: Yes (with static hypertension and positive tilt table test) Neurological: No Reproductive Disorders: No 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 0.0oz. 73.956239uj; 23.9 BMI Method:Stated General Appearance: No Apparent Distress, WD/WN Neck: Full Range of Motion, Supple Cardiovascular: No Murmur, Bradycardia Respiratory: Lungs Clear, Normal Breath Sounds Gastrointestinal: Non Tender, Soft Back: Normal Inspection, No CVA Tenderness, No Vertebral Tenderness Extremities: Normal Range of Motion, Non Tender Neurologic/Psychiatric: Alert, Oriented x3 Cranial Nerves: Normal Speech, PERRL Motor/Sensory: No Motor Deficit, No Sensory Deficit Skin: Normal Color, Warm/Dry Focused Exam Lactate Level 12/17/18 19:20: Lactic Acid Level 2.27*H Lactic Acid Level Laboratory Tests Test 12/17/18 19:20 Lactic Acid Level 2.27 MMOL/L (0.50-2.00) *H Progress/Results/Core Measures Results/Orders Lab Results Laboratory Tests Test 12/17/18 19:20 12/17/18 20:00 12/17/18 20:43 Range/Units White Blood Count 6.7 4.3-11.0 10^3/uL Red Blood Count 4.94 4.35-5.85 10^6/uL Hemoglobin 14.0 11.5-16.0 G/DL Hematocrit 42 35-52 % Mean Corpuscular Volume 85 80-99 FL Mean Corpuscular Hemoglobin 28 25-34 PG Mean Corpuscular Hemoglobin Concent 33 32-36 G/DL Red Cell Distribution Width 13.0 10.0-14.5 % Platelet Count 196 130-400 10^3/uL Mean Platelet Volume 11.2 H 7.4-10.4 FL Neutrophils (%) (Auto) 57 42-75 % Lymphocytes (%) (Auto) 33 12-44 % Monocytes (%) (Auto) 8 0-12 % Eosinophils (%) (Auto) 2 0-10 % Basophils (%) (Auto) 0 0-10 % Neutrophils # (Auto) 3.8 1.8-7.8 X 10^3 Lymphocytes # (Auto) 2.2 1.0-4.0 X 10^3 Monocytes # (Auto) 0.5 0.0-1.0 X 10^3 Eosinophils # (Auto) 0.1 0.0-0.3 10^3/uL Basophils # (Auto) 0.0 0.0-0.1 10^3/uL Prothrombin Time 15.3 H 12.2-14.7 SEC INR Comment 1.2 0.8-1.4 Activated Partial Thromboplast Time 25 24-35 SEC Sodium Level 139 135-145 MMOL/L Potassium Level 4.2 3.6-5.0 MMOL/L Chloride Level 112 H 98-107 MMOL/L Carbon Dioxide Level 16 L 21-32 MMOL/L Anion Gap 11 5-14 MMOL/L Blood Urea Nitrogen 10 7-18 MG/DL Creatinine 0.74 0.60-1.30 MG/DL Estimat Glomerular Filtration Rate > 60 BUN/Creatinine Ratio 14 Glucose Level 138 H 70-105 MG/DL Lactic Acid Level 2.27 *H 0.50-2.00 MMOL/L Calcium Level 8.4 L 8.5-10.1 MG/DL Corrected Calcium 8.7 8.5-10.1 MG/DL Total Bilirubin 0.7 0.1-1.0 MG/DL Aspartate Amino Transf (AST/SGOT) 9 5-34 U/L Alanine Aminotransferase (ALT/SGPT) 12 0-55 U/L Alkaline Phosphatase 35 L 40-136 U/L Total Protein 5.8 L 6.4-8.2 GM/DL Albumin 3.6 3.2-4.5 GM/DL Serum Test, Qualitative NEGATIVE NEGATIVE Urine Color YELLOW Urine Clarity VERY CLOUDY H Urine pH 6 5-9 Urine Specific Callahan 1.015 L 1.016-1.022 Urine Protein 2+ H NEGATIVE Urine Glucose (UA) NEGATIVE NEGATIVE Urine Ketones NEGATIVE NEGATIVE Urine Nitrite NEGATIVE NEGATIVE Urine Bilirubin NEGATIVE NEGATIVE Urine Urobilinogen 1 NORMAL MG/DL Urine Leukocyte Esterase 3+ H NEGATIVE Urine RBC (Auto) 2+ H NEGATIVE Urine RBC RARE /HPF Urine WBC 0-2 /HPF Urine Squamous Epithelial Cells >50 H /HPF Urine Crystals NONE /LPF Urine Bacteria MODERATE H /HPF Urine Casts NONE /LPF Urine Mucus SMALL H /LPF Urine Culture Indicated CULTURE PENDING Urine Opiates Screen NEGATIVE NEGATIVE Urine Oxycodone Screen NEGATIVE NEGATIVE Urine Methadone Screen NEGATIVE NEGATIVE Urine Propoxyphene Screen NEGATIVE NEGATIVE Urine Barbiturates Screen NEGATIVE NEGATIVE Ur Tricyclic Antidepressants Screen NEGATIVE NEGATIVE Urine Phencyclidine Screen NEGATIVE NEGATIVE Urine Amphetamines Screen POSITIVE H NEGATIVE Urine Methamphetamines Screen POSITIVE H NEGATIVE Urine Benzodiazepines Screen NEGATIVE NEGATIVE Urine Cocaine Screen NEGATIVE NEGATIVE Urine Cannabinoids Screen NEGATIVE NEGATIVE My Orders Orders - YAO OCONNELL MD Cbc With Automated Diff (12/17/18 19:13) Comprehensive Metabolic Panel (12/17/18 19:13) Blood Culture (12/17/18 19:13) Sputum Culture (12/17/18 19:13) Urinalysis (12/17/18 19:13) Urine Culture (12/17/18 19:13) Protime With Inr (12/17/18 19:13) Partial Thromboplastin Time (12/17/18 19:13) Chest 1 View, Ap/Pa Only (12/17/18 19:13) Ed Iv/Invasive Line Start (12/17/18 19:13) Vital Signs Adult Sepsis Patie Q15M (12/17/18 19:13) O2 (12/17/18 19:13) Remove Rings In Anticipation O (12/17/18 19:13) Lactic Acid Analyzer (12/17/18 19:13) Ns Iv 1000 Ml (Sodium Chloride 0.9%) (12/17/18 19:13) Drug Screen Stat (Urine) (12/17/18 19:13) Ekg Tracing (12/17/18 19:36) Hcg,Qualitative Serum (12/17/18 19:46) Fludrocortisone Tablet (Florinef Tablet) (12/17/18 21:00) Ua Culture If Indicated (12/17/18 20:51) Vital Signs/I&O 12/17/18 19:09 Temp 97.4 Pulse 46 Resp 16 B/P (MAP) 108/66 (80) Pulse Ox 100 O2 Delivery Room Air Progress Progress Note : Progress Note Seen and evaluated. IV by EMS. Second IV by baths. Normal saline 1 L bolus initiated after normal saline bolus from EMS. Labs, blood cultures, lactic acid , UA and chest x-ray ordered. We'll get EKG as well. UDS added. Monitor patient. 2044: Catheter UA ordered as UA contaminated. Patient is methamphetamine positive. I did discuss this with her. She admits to use on Wednesday. She states that she does have a problem with this. Her fianc and family do not know and this was not discussed in front of them. I did give her information for treatment at addiction treatment services at [facility] and other [place] based organizations. 2048: I did discuss the case with Dr. Samaniego and he is recommending hydrocortisone 0.1 mg by mouth now and will continue that. He accepts patient in consult. I did discuss the case with Dr. Dietrich 2100. She accepts patient for admission. Patient does have elevated lactic acid. We are pending straight catheter UA. Patient I contaminated urine and I'm not sure that this is a true or reflective of urinary tract infection. Lactic acidosis may be related to hypotension. We will treat urine if Repeat UA is positive. Admit, observation status. Patient and family agree with plan. 2111 : Repeat UA is negative. No indication of infection. I do believe the lactic acid is related to hypotension. I will hold antibiotics at this point. Initial ECG Impression Date: December 17, 2018 Initial ECG Impression Time: 19:48 Initial ECG Rate: 52 Initial ECG Rhythm: S.Robert Initial ECG Comparisson: Unchanged Comment Sinus bradycardia with incomplete right bundle branch block. Normal axis. No evidence of ST elevation NE. Interpreted by me. Diagnostic Imaging Diagonstic Imaging: Xray Plain Films/CT/US/NM/MRI: chest Comments [facility] [place], [place] NAME: CAYDEN ROUSSEAU [facility] REC#: [id number] PT STATUS: REG ER : 1990 PHYSICIAN: YAO OCONNELL MD ADMIT DATE: 12/17/18/ER Draft Date of Exam:12/17/18 CHEST 1 VIEW, AP/PA ONLY INDICATION: Syncope and hypotension Frontal chest obtained at 7:41 p.m. Heart and mediastinal silhouette are normal in appearance. The lungs appear clear. There is no pneumothorax or pleural fluid. There is no change from 06/03/2018. IMPRESSION: No acute process in the chest. Dictated on workstation # [id number] Dict: 12/17/181958 Trans: 12/17/182002 [facility] [id number] Interpreted by: CARRILLO PANCHAL MD Electronically signed by: Departure Communication (Admissions) Time/Spoke to Admitting Phy: 21:01 Time/Spoke to Consulting Phy: 20:49 Impression Primary Impression: Orthostatic hypotension Additional Impressions: Bradycardia Lactic acidosis Disposition: ADMITTED INPATIENT Condition: Stable Admissions Decision to Admit Reason: Admit from ER (General) Decision to Admit/Date: December 17, 2018 Time/Decision to Admit Time: 20:49 Departure-Patient Inst. Referrals: YANIV BROWNLEE MD (PCP) Primary Care Physician [facility] [place] Primary Care Physician YAO OCONNELL MD December 17, 2018 19:35
[2018-12-17 19:45] LABS: INR 1.2 (0.8-1.4); PROTHROMBIN TIME PATIENT 15.3 SEC (12.2-14.7)
--- NOTE | 2018-12-17 19:45 | NUR ---
NS bolus initiated by cc ems complete (1000ml intake).
[2018-12-17 19:49] LABS: ALANINE AMINOTRANSFERASE 12 U/L (0-55); ALBUMIN 3.6 GM/DL (3.2-4.5); ALKALINE PHOSPHATASE 35 U/L (40-136); BILIRUBIN,TOTAL 0.7 MG/DL (0.1-1.0); BUN/CREATININE RATIO 14; CALCIUM 8.4 MG/DL (8.5-10.1); CARBON DIOXIDE 16 MMOL/L (21-32); CREATININE SERUM 0.74 MG/DL (0.60-1.30); GFR ESTIMATED > 60; GLUCOSE 138 MG/DL (70-105); TOTAL PROTEIN 5.8 GM/DL (6.4-8.2)
--- NOTE | 2018-12-17 20:03 | Diagnostic Imaging Report ---
INDICATION: Syncope and hypotension Frontal chest obtained at 7:41 p.m. Heart and mediastinal silhouette are normal in appearance. The lungs appear clear. There is no pneumothorax or pleural fluid. There is no change from 06/03/2018. IMPRESSION: No acute process in the chest. Dictated by: Dictated on workstation # [id number]
[2018-12-17 20:10] LABS: CHLORIDE 112 MMOL/L (98-107); POTASSIUM 4.2 MMOL/L (3.6-5.0); SODIUM 139 MMOL/L (135-145)
[2018-12-17 20:12] LABS: BILIRUBIN,URINE NEGATIVE (NEGATIVE); CLARITY,URINE VERY CLOUDY; COLOR,URINE YELLOW; GLUCOSE, URINE (UA) NEGATIVE (NEGATIVE); KETONES,URINE NEGATIVE (NEGATIVE); LEUKOCYTE ESTERASE ,URINE 3+ (NEGATIVE); NITRITE,URINE NEGATIVE (NEGATIVE); PH,URINE 6 (5-9); PROTEIN,URINE 2+ (NEGATIVE); UROBILINOGEN,URINE 1 MG/DL (NORMAL)
[2018-12-17 20:19] LABS: BACTERIA,URINE MODERATE /HPF; RBC,URINE RARE /HPF; SQUAMOUS EPITHELIAL CELL,UR >50 /HPF; WBC,URINE 0-2 /HPF
[2018-12-17 20:28] LABS: AMPHETAMINE SCREEN, URINE POSITIVE (NEGATIVE); BARBITURATE SCREEN URINE NEGATIVE (NEGATIVE); BENZODIAZEPINES SCREEN URINE NEGATIVE (NEGATIVE); CANNABINOID SCREEN, URINE NEGATIVE (NEGATIVE); COCAINE SCREEN URINE NEGATIVE (NEGATIVE); METHADONE STAT NEGATIVE (NEGATIVE); METHAMPHETAMINE SCREEN URINE S POSITIVE (NEGATIVE); OPIATE SCREEN URINE NEGATIVE (NEGATIVE); OXYCODONE STAT NEGATIVE (NEGATIVE); PROPOXYPHENE STAT NEGATIVE (NEGATIVE); TRICYCLIC ANTIDEPRESSANTS SCRE NEGATIVE (NEGATIVE)
[2018-12-17] MEDS ORDERED: FLUDROCORTISONE 0.1 MG (FLORINEF) TAB PO SCH (21:00)
[2018-12-17 21:01] LABS: BILIRUBIN,URINE NEGATIVE (NEGATIVE); CLARITY,URINE CLEAR; COLOR,URINE YELLOW; GLUCOSE, URINE (UA) NEGATIVE (NEGATIVE); KETONES,URINE NEGATIVE (NEGATIVE); LEUKOCYTE ESTERASE ,URINE NEGATIVE (NEGATIVE); NITRITE,URINE NEGATIVE (NEGATIVE); PH,URINE 6 (5-9); PROTEIN,URINE NEGATIVE (NEGATIVE); UROBILINOGEN,URINE NORMAL (NORMAL)
[2018-12-17 21:07] LABS: BACTERIA,URINE TRACE /HPF; RBC,URINE RARE /HPF
[2018-12-17 21:08] LABS: WBC,URINE RARE /HPF
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
--- NOTE | 2018-12-17 22:00 | NUR ---
CAYDEN ONELIA admitted to room CU11-1, with an admitting diagnosis of BRADYCARDIA, ORTHOSTATIC HYPOTENSION , on 12/17/18 from ED via WHEELCHAIR , accompanied by HOSPITAL STAFF. CAYDEN ROUSSEAU introduced to surroundings, call light, bed controls, phone, TV, temperature control, lights, meal times, smoking policy, visitor policy, side rail policy, bathrooms and showers. Patient Rights given to patient in the handbook.CAYDEN ROUSSEAU verbalizes understanding that [facility] is not responsible for the loss or damage to any personal effects or valuables that are kept in the patients posession during their hospitalization. CAYDEN ROUSSEAU verbalizes understanding of Interdisciplinary Patient Education. Patient and/or family were informed about the Rapid Response Team and its purpose.
[2018-12-17 22:15] VITALS: BP 88/58
[2018-12-17] MEDS ORDERED: ONDANSETRON 4 MG/2 ML (SDV) Z0FRAN IV PRN (22:15)
[2018-12-17] MEDS ORDERED: ACETAMINOPHEN 325 MG TABLET PO PRN (22:15)
[2018-12-17] MEDS: NS IV 1000 ML 1,000 ML IV SCH (22:15)
[2018-12-17 22:30] VITALS: BP 104/83
[2018-12-17 22:45] VITALS: BP 105/67
[2018-12-17 23:00] VITALS: BP 104/53
[2018-12-17 23:30] VITALS: BP 111/63
[2018-12-18] VITALS (12 sets, daily range): BP systolic 101–119; BP diastolic 47–81
[2018-12-18 03:47] LABS: BASOPHILS % (AUTO) 0 % (0-10); EOSINOPHILS # (AUTO) 0.1 10^3/uL (0.0-0.3); EOSINOPHILS % (AUTO) 1 % (0-10); HEMATOCRIT 38 % (35-52); HEMOGLOBIN 12.8 G/DL (11.5-16.0); LYMPHOCYTES # (AUTO) 2.4 X 10^3 (1.0-4.0); LYMPHOCYTES % (AUTO) 29 % (12-44); MEAN CORPUSCULAR HEMOGLOBIN 28 PG (25-34); MEAN CORPUSCULAR HGB CONC 34 G/DL (32-36); MEAN CORPUSCULAR VOLUME 85 FL (80-99); MEAN PLATELET VOLUME 10.9 FL (7.4-10.4); MONOCYTES # (AUTO) 0.8 X 10^3 (0.0-1.0); MONOCYTES % (AUTO) 9 % (0-12); NEUTROPHILS # (AUTO) 4.8 X 10^3 (1.8-7.8); NEUTROPHILS % (AUTO) 60 % (42-75); PLATELET COUNT 197 10^3/uL (130-400); RED CELL DISTRIBUTION WIDTH 13.1 % (10.0-14.5)
[2018-12-18 04:08] LABS: BUN/CREATININE RATIO 14; CALCIUM 8.3 MG/DL (8.5-10.1); CARBON DIOXIDE 19 MMOL/L (21-32); CHLORIDE 112 MMOL/L (98-107); CREATININE SERUM 0.65 MG/DL (0.60-1.30); GFR ESTIMATED > 60; GLUCOSE 116 MG/DL (70-105); MAGNESIUM 1.8 MG/DL (1.8-2.4); POTASSIUM 3.5 MMOL/L (3.6-5.0); SODIUM 140 MMOL/L (135-145)
[2018-12-18] MEDS ORDERED: KCL 20 MEQ TAB (K-DUR) PO ONE (04:45)
--- NOTE | 2018-12-18 05:49 | Pulmonary Consultation ---
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 She has been having syncope intermittently since 07/26. EMS found pt to be hypotensive and bradycardic. She does have a hx of a positive tilt table test. She has been Rx Florinef in the past however has not taken it regularly since 08/27 however she did take one yesterday morning. She denies drug use however UDS is positive for methamphetamine. The [email or web address] did send someone from [facility] to see her yesterday after admission. Denies nausea or vomiting. Denies injury. Does complain of dysuria and low back pain. Allergies and Home Medications Allergies Coded Allergies: latex (Verified Allergy, Unknown, 04/21/16) Home Medications Cetirizine HCl 10 Mg Capsule, 10 MG PO DAILY, (Reported) Naproxen 500 Mg Tablet, 500 MG PO BID Prescribed by: DAYAMI TIJERINA on 02/10/1723 Sulfamethoxazole/Trimethoprim 1 Each Tablet, 1 EACH PO BID Prescribed by: DAYAMI TIJERINA on 02/10/1723 Tramadol HCl 50 Mg Tablet, 50 MG PO Q4H Prescribed by: DAYAMI TIJERINA on 02/10/1723 Past Azyavbu-Zfsfmf-Scstlm Hx Past Med/Social Hx: Reviewed Nursing Past Med/Soc Hx Patient Social History Alcohol Use: Denies Use Recreational Drug Use: No Drug of Choice: HX OF THC, METH USE Smoking Status: Current Everyday Smoker Type Used: Cigarettes 2nd Hand Smoke Exposure: No Recent Foreign Travel: No Contact w/Someone Who Travel: No Recent Infectious Disease Expo: No Recent Hopitalizations: No Immunizations Up To Date Tetanus Booster (TDap): Less than 5yrs Seasonal Allergies Seasonal Allergies: Yes Past Medical History Surgeries: Yes Hysterectomy Respiratory: No Cardiac: Yes (with static hypertension and positive tilt table test) Hypotension Neurological: No Reproductive Disorders: No 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 4.0oz. 74.150201ia; 23.6 BMI Method:Stated Exam Exam Vital Signs Date Time Temp Pulse Resp B/P (MAP) Pulse Ox O2 Delivery O2 Flow Rate FiO2 12/18/18 04:00 99 Room Air 12/18/18 04:00 60 16 110/70 (83) Room Air 12/18/18 03:00 76 15 103/47 (65) Room Air 12/18/18 02:00 63 18 106/57 (73) Room Air 12/18/18 01:00 71 19 111/55 (73) Room Air 12/18/18 01:00 71 12/18/18 00:30 61 18 109/57 (74) Room Air 12/18/18 00:00 99 Room Air 12/18/18 00:00 66 20 101/54 (70) Room Air 12/17/18 23:30 73 20 111/63 (79) Room Air 12/17/18 23:00 53 17 104/53 (70) Room Air 12/17/18 22:45 60 18 105/67 (80) Room Air 12/17/18 22:30 80 19 104/83 (90) Room Air 12/17/18 22:15 97.7 51 21 88/58 (68) Room Air 12/17/18 22:03 52 12/17/18 22:00 100 Room Air 12/17/18 21:56 97.4 50 16 103/71 (82) 100 Room Air 12/17/18 19:09 97.4 46 16 108/66 (80) 100 Room Air I & O 12/18/18 07:00 Intake Total 1600 ml Balance 1600 ml Height & Weight Height: 5'10.00" Weight: 164lbs. 4.0oz. 74.521981kz; 23.6 BMI Method:Stated General Appearance: No Apparent Distress, WD/WN Neck: Full Range of Motion, Supple Respiratory: Lungs Clear, Normal Breath Sounds Cardiovascular: No Murmur, Bradycardia Capillary Refill: Less Than 3 Seconds Extremity: Normal Range of Motion, Non Tender Neurologic/Psychiatric: Alert, Oriented x3 Skin: Normal Color, Warm/Dry Results Lab Laboratory Tests 12/17/18:20 12/18/18 03:17 Assessment/Plan Assessment/Plan Syncope with methamphetamine use -education -Echo pending -positive tilt table test in past Orthostatic hypotension with br -Bradycardia -Florinef -Cardiology consulted Metabolic lactic acidosis -IVF -monitor Methamphetamine use -education KENDRA VILLATORO DO December 18, 2018 05:49
[2018-12-18] MEDS ORDERED: KCL 20 MEQ TAB (K-DUR) PO SCH (06:00)
[2018-12-18] MEDS ORDERED: MAGNESIUM 1 GM/100 ML IVPB 100 ML IV SCH (06:00)
[2018-12-18] MEDS ORDERED: POTASSIUM CL 10MEQ/50ML IVPB 50 ML IV SCH (06:00)
--- NOTE | 2018-12-18 08:18 | Diagnostic Imaging Report ---
EXAMINATION: Single AP view of the chest INDICATION: Bradycardia and orthostatic hypotension. Comparison: Multiple priors, most recent performed earlier today. FINDINGS: The lungs are clear and the pulmonary vasculature is normal. No pneumothorax or large pleural effusion. The cardio mediastinal silhouette is normal. No acute osseous abnormality. IMPRESSION: No acute chest disease. No significant change. Dictated by: Dictated on workstation # [id number]
[2018-12-18] MEDS ORDERED: FLUDROCORTISONE 0.1 MG (FLORINEF) TAB PO SCH (09:00)
[2018-12-18] MEDS: NS IV 1000 ML 1,000 ML IV SCH (09:14)
--- NOTE | 2018-12-18 10:32 | Consultation-Cardiology ---
HPI-Cardiology Cardiology Consultation: Date of Consultation 12/18/18 Date of Admission Attending Physician Betsy Boucher DO Admitting Physician Donato Thacker MD Consulting Physician Saeed SAMANIEGO MD HPI: Time Seen by a Provider: 09:15 Chief Complaint: Syncope This is a 28-year-old lady who is a patient of Dr. Gaming. She had a tilt table testing and exercise stress test in July 2018. Tilt table testing showed vasodepressor syncope with hypotension and bradycardia. She was started on Florinef and given a CECELIA hose. Cardiac stress testing with a treadmill test was normal. She presented from the [facility] with EMS with complaints of a syncopal episode. She has not been taking her Florinef. EMS demonstrated bradycardia and hypotension and gave her normal saline. She denied any other cardiac symptoms. However her blood pressure was borderline and therefore she was admitted. Review of Systems-Cardiology Review of Systems Constitutional: As described under HPI; No As described under HPI, No no symptoms reported, No chills, No fever, No lightheadedness Eyes: No As described under HPI, No no symptoms reported, No blindness, No blurred vision, No contact lenses, No drainage, No decreased acuity, No foreign body sensation, No pain, No vision change Ears/Nose/Throat: No As described under HPI, No no symptoms reported, No chronic hearing loss, No ear discharge, No ear pain, No nasal drainage, No ulcerations Respiratory: No no symptoms reported; As described under HPI; No As described under HPI, No cough, No orthopnea, No shortness of breath, No SOB with excertion Cardiovascular: No no symptoms reported; As described under HPI; No As described under HPI, No chest pain, No edema, No irregular heart rate, No lightheadedness, No palpitations; syncope Gastrointestinal: No no symptoms reported, No As described under HPI, No abdomen distended, No abdominal pain, No blood streaked bowels, No constipation , No diarrhea, No nausea, No vomiting, No stool coloration changes Genitourinary: No As described under HPI, No burning, No dysuria, No discharge , No frequency, No flank pain, No hematuria, No urgency : Yes : No Skin: No rash, No skin related problems, No ulcerations Psychiatric/Neurological: No anxiety, No depression, No seizure, No focal weakness, No syncope Hematologic: No bleeding abnormalities All Other Systems Reviewed Negative Unless Noted: Yes BGP-Fjfyir-Zyuelm Hx Patient Social History Alcohol Use: Denies Use Recreational Drug Use: No Drug of Choice: HX OF THC, METH USE Smoking Status: Current Everyday Smoker Type Used: Cigarettes 2nd Hand Smoke Exposure: No Recent Foreign Travel: No Recent Infectious Disease Expo: No Hospitalization with Isolation: Denies Immunizations Up To Date Tetanus Booster (TDap): Less than 5yrs Past Medical History PMH As described under Assessment. Family Medical History Family History: Patient reports no known family medical history. Allergies and Home Medications Allergies Coded Allergies: latex (Verified Allergy, Unknown, 04/21/16) Home Medications Cetirizine HCl 10 Mg Capsule, 10 MG PO DAILY, (Reported) Fludrocortisone Acetate 0.1 Mg Tab, 0.1 MG PO DAILY Prescribed by: BETSY BOUCHER on 12/18/18 1148 Naproxen 500 Mg Tablet, 500 MG PO BID Prescribed by: DAYAMI TIJERINA on 02/10/17 002 Tramadol HCl 50 Mg Tablet, 50 MG PO Q4H Prescribed by: DAYAMI TIJERINA on 02/10/1723 Patient Home Medication List Home Medication List Reviewed: Yes Physical Exam-Cardiology Physical Exam Vital Signs/I&O 12/18/18 12/18/18 12/18/18 12/18/18 07:00 07:00 08:00 08:00 Pulse 51 50 51 Resp 17 19 B/P (MAP) 101/62 (75) 119/81 (94) Pulse Ox 99 O2 Delivery Room Air Room Air Room Air 12/18/18 12/18/18 12/18/18 09:00 09:00 10:00 Pulse 51 51 Resp 23 18 B/P (MAP) 108/79 (89) 116/72 (87) Pulse Ox 97 O2 Delivery Room Air Room Air Room Air 12/18/18 00:00 Intake Total 1600 ml Balance 1600 ml Capillary Refill : Less Than 3 Seconds Constitutional: appears stated age, AAO x 3; No apparent distress; well- developed, well-nourished HEENT: PERRL; No discharge; hearing is well preserved, oral hygience is good; No ulceration, No xanthelasmas are seen Neck: No non-tender, No full range of motion, No supple, No normal inspection, No carotid bruit, No limited range of motion, No lymphadenopathy (R), No lymphadenopathy (L), No tender lateral, No tender midline, No thyromegaly, No other; carotid pulses are 2 + bilaterally; No with good upstrokes Respiratory: No accessory muscle use, No respiratory distress, No chest tender , No chest expansion is symmetric; chest is bilaterally symmetric; No lungs clear to percussion; lungs clear to auscultation; No crackles, No rhonchi, No rales, No stridor, No wheezing, No pleural rub, No other Cardiovascular: regular rate-rhythm; No irregularly irregular, No extra beats, No parasternal heave is noted, No JVD, No edema, No bradycardia, No tachycardia , No point of maximal impulse, No cardiac thrills are palpable; S1 and S2; No gallop/S3, No gallop/S4, No diastolic murmur, No systolic murmur, No friction rub, No click, No other Gastrointestinal: No spleenomegaly Rectal: deferred Extremities: No normal range of motion, No non-tender, No normal inspection, No pedal edema, No calf tenderness, No normal capillary refill, No pelvis stable , No calf tenderness, No inflammation, No pedal edema, No slow capillary refill , No swelling, No other, No abrasion, No clubbing, No cyanosis, No ecchymosis, No laceration, No no lower extremity edema bilateral, No significant edema, No tenderness, No wound Neurologic/Psychiatric: no motor/sensory deficits, alert, normal mood/affect, oriented x 3, power is 5/5 both on sides Skin: No normal color, No warm/dry, No cyanosis, No cool, No diaphoresis, No damp, No ecchymosis, No jaundice, No mottled, No pallor, No rash, No tattoos/ piercings, No ulcerations, No rash on exposed areas, No ulcerations on exposed areas, No other Data Review Labs Laboratory Tests 12/17/18 19:20: White Blood Count 6.7, Red Blood Count 4.94, Hemoglobin 14.0, Hematocrit 42, Mean Corpuscular Volume 85, Mean Corpuscular Hemoglobin 28, Mean Corpuscular Hemoglobin Concent 33, Red Cell Distribution Width 13.0, Platelet Count 196, Mean Platelet Volume 11.2H, Neutrophils (%) (Auto) 57, Lymphocytes (%) (Auto) 33 , Monocytes (%) (Auto) 8, Eosinophils (%) (Auto) 2, Basophils (%) (Auto) 0, Neutrophils # (Auto) 3.8, Lymphocytes # (Auto) 2.2, Monocytes # (Auto) 0.5, Eosinophils # (Auto) 0.1, Basophils # (Auto) 0.0, Prothrombin Time 15.3H, INR Comment 1.2, Activated Partial Thromboplast Time 25, Sodium Level 139, Potassium Level 4.2, Chloride Level 112H, Carbon Dioxide Level 16L, Anion Gap 11 , Blood Urea Nitrogen 10, Creatinine 0.74, Estimat Glomerular Filtration Rate > 60, BUN/Creatinine Ratio 14, Glucose Level 138H, Lactic Acid Level 2.27*H, Calcium Level 8.4L, Corrected Calcium 8.7, Total Bilirubin 0.7, Aspartate Amino Transf (AST/SGOT) 9, Alanine Aminotransferase (ALT/SGPT) 12, Alkaline Phosphatase 35L, Total Protein 5.8L, Albumin 3.6, Serum Test, Qualitative NEGATIVE 12/17/18 20:00: Urine Color YELLOW, Urine Clarity VERY CLOUDYH, Urine pH 6, Urine Specific [place] 1.015L, Urine Protein 2+H, Urine Glucose (UA) NEGATIVE, Urine Ketones NEGATIVE, Urine Nitrite NEGATIVE, Urine Bilirubin NEGATIVE, Urine Urobilinogen 1 , Urine Leukocyte Esterase 3+H, Urine RBC (Auto) 2+H, Urine RBC RARE, Urine WBC 0-2, Urine Squamous Epithelial Cells >50H, Urine Crystals NONE, Urine Bacteria MODERATEH, Urine Casts NONE, Urine Mucus SMALLH, Urine Culture Indicated CULTURE PENDING, Urine Opiates Screen NEGATIVE, Urine Oxycodone Screen NEGATIVE , Urine Methadone Screen NEGATIVE, Urine Propoxyphene Screen NEGATIVE, Urine Barbiturates Screen NEGATIVE, Ur Tricyclic Antidepressants Screen NEGATIVE, Urine Phencyclidine Screen NEGATIVE, Urine Amphetamines Screen POSITIVEH, Urine Methamphetamines Screen POSITIVEH, Urine Benzodiazepines Screen NEGATIVE, Urine Cocaine Screen NEGATIVE, Urine Cannabinoids Screen NEGATIVE 12/17/18 20:43: Urine Color YELLOW, Urine Clarity CLEAR, Urine pH 6, Urine Specific [place] 1.015L, Urine Protein NEGATIVE, Urine Glucose (UA) NEGATIVE, Urine Ketones NEGATIVE, Urine Nitrite NEGATIVE, Urine Bilirubin NEGATIVE, Urine Urobilinogen NORMAL, Urine Leukocyte Esterase NEGATIVE, Urine RBC (Auto) 1+H, Urine RBC RARE , Urine WBC RARE, Urine Squamous Epithelial Cells 2-5, Urine Crystals NONE, Urine Bacteria TRACE, Urine Casts NONE, Urine Mucus SMALLH, Urine Culture Indicated NO 12/17/18 21:39: Lactic Acid Level 1.43 12/18/18 03:17: White Blood Count 8.0, Red Blood Count 4.52, Hemoglobin 12.8, Hematocrit 38, Mean Corpuscular Volume 85, Mean Corpuscular Hemoglobin 28, Mean Corpuscular Hemoglobin Concent 34, Red Cell Distribution Width 13.1, Platelet Count 197, Mean Platelet Volume 10.9H, Neutrophils (%) (Auto) 60, Lymphocytes (%) (Auto) 29 , Monocytes (%) (Auto) 9, Eosinophils (%) (Auto) 1, Basophils (%) (Auto) 0, Neutrophils # (Auto) 4.8, Lymphocytes # (Auto) 2.4, Monocytes # (Auto) 0.8, Eosinophils # (Auto) 0.1, Basophils # (Auto) 0.0, Sodium Level 140, Potassium Level 3.5L, Chloride Level 112H, Carbon Dioxide Level 19L, Anion Gap 9, Blood Urea Nitrogen 9, Creatinine 0.65, Estimat Glomerular Filtration Rate > 60, BUN/ Creatinine Ratio 14, Glucose Level 116H, Calcium Level 8.3L, Phosphorus Level 3.0, Magnesium Level 1.8 Microbiology 12/17/18 Blood Culture - Preliminary, Resulted No growth A/P-Cardiology Assessment/Admission Diagnosis Syncope, Drug abuse, Hyperchloremic metabolic acidosis Plan Syncope, with hypotension and bradycardia likely vasodepressive syncope as diagnosed by Dr. Gaming in July 2018. The patient was started on Florinef 0.1 mg daily in the ER yesterday and IV fluids were given. When I saw the patient her blood pressure systolic was 115 mmHg with normal heart rate. I discussed with her and emphasized compliance with Florinef. Also if she is compliant with Florinef 0.1 mg daily and continues to have syncopal episodes, the dose can be increased. Echocardiogram done 12/18/2018 shows normal LV size and function. Mildly elevated PA pressure. Drug abuse. Hyperchloremic metabolic acidosis. Unclear etiology. Thank you for your consultation. Please call me if you have any questions. Aislinn Samaniego MD, FACP, FACC, FSCAI, FHRS, CCDS Interventional Cardiology Cardiac Electrophysiology Vascular Medicine and Endovascular Interventions Clinical Quality Measures DVT/VTE Risk/Contraindication: Risk Factor Score Per Nursin RFS Level Per Nursing on Admit: 1=Low/No VTE PPX Saeed SAMANIEGO MD December 18, 2018 10:32
--- NOTE | 2018-12-18 11:47 | Short Stay Summary-Hospitalist ---
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 She has a h/o meth abuse and although she denied using it her UDS was meth. She reports non-compliance with Florinef. She was admitted and monitored closely without recurrence of the episode and is now doing well and wants to go home and all consultants agree with the plan. Source: patient, RN/MD Exam Limitations: no limitations Date Seen 12/18/18 Time Seen by a Provider: 10:30 Attending Physician Betsy Dietrich David F MD Referring Physician Date of Admission December 17, 2018 at 21:07 Home Medications & Allergies Home Medications Reviewed patient Home Medication Reconciliation performed by pharmacy medication reconciliations railway signal technician and/or nursing. Patients Allergies have been reviewed. Allergies Allergies Coded Allergies latex (Verified Allergy, Unknown, 04/21/16) Past Irpaief-Yvjxfm-Loeafj Hx Past Med/Social Hx: Reviewed Nursing Past Med/Soc Hx, Reviewed and Corrections made Patient Social History Marrital Status: cohabiting Employed/Student: employed Alcohol Use: Denies Use Recreational Drug Use: No Drug of Choice: HX OF THC, METH USE Smoking Status: Current Everyday Smoker Type Used: Cigarettes 2nd Hand Smoke Exposure: No Recent Foreign Travel: No Contact w/other who traveled: No Recent Hopitalizations: No Recent Infectious Disease Expo: No Immunizations Up To Date Tetanus Booster (TDap): Less than 5yrs Seasonal Allergies Seasonal Allergies: Yes Past Medical History Surgeries: Hysterectomy Cardiac: Hypotension Reproductive: No Sexually Transmitted Disease: No HIV/AIDS: No Hysterectomy Genitourinary: Kidney Infection, UTI-Chronic Loss of Vision: Bilateral Hearing Impairment: Denies History of Blood Disorders: No Adverse Reaction to Blood Pickard: No Family History Reviewed Nursing Family Hx Patient reports no known family medical history. Review of Systems Constitutional: see HPI, dizziness EENTM: no symptoms reported Respiratory: no symptoms reported Cardiovascular: no symptoms reported Psychiatric/Neurological: See HPI Physical Exam Physical Exam Vital Signs Vital Signs - First Documented 12/17/18 19:09 Temp 97.4 Pulse 46 Resp 16 B/P (MAP) 108/66 (80) Pulse Ox 100 O2 Delivery Room Air Capillary Refill : Less Than 3 Seconds Height, Weight, BMI Height: 5'10.00" Weight: 164lbs. 4.0oz. 74.951780px; 23.6 BMI Method:Stated General Appearance: No Apparent Distress, WD/WN HEENT: PERRL/EOMI, Normal ENT Inspection, Pharynx Normal Neck: Full Range of Motion, Normal Inspection, Non Tender, Supple Respiratory: Lungs Clear, Normal Breath Sounds, No Accessory Muscle Use, No Respiratory Distress Cardiovascular: No Murmur, Bradycardia Gastrointestinal: Non Tender, Soft Back: Normal Inspection, No CVA Tenderness, No Vertebral Tenderness Extremity: Normal Range of Motion, Non Tender Neurologic/Psychiatric: Alert, Oriented x3 Skin: Normal Color, Warm/Dry Results Results/Procedures Labs Laboratory Tests 12/17/18 19:20 12/18/18 03:17 Patient resulted labs reviewed. Short Stay Diagnosis Discharge Diagnosis-Short Stay Admission Diagnosis Assessment: Orthostatic hypotension Syncope Meth use Smoker Final Discharge Diagnosis Assessment: Orthostatic hypotension Syncope Meth use Smoker Conclusion Plan Plan: [facility] appt Meth use counseling Diagnosis/Problems Diagnosis/Problems (1) Near syncope Status: Acute (2) Orthostatic hypotension Status: Acute Clinical Quality Measures DVT/VTE Risk/Contraindication: Risk Factor Score Per Nursin RFS Level Per Nursing on Admit: 1=Low/No VTE PPX BETSY DIETRICH DO December 18, 2018 11:47
[2018-12-18] MEDS ORDERED: FLDR.1T PO (11:48)
== END 2018-12-18 12:25 | disposition home or self-care (01) ==
LOC: EDUNIT# 19:09 → ER 19:12 → ICU 21:07
PROVIDERS: ADMIT Internal Medicine; ATTEND Internal Medicine
DX: I95.1 Orthostatic hypotension (principal); F15.90 Other stimulant use, unspecified, uncomplicated; F17.210 Nicotine dependence, cigarettes, uncomplicated; E87.2 Acidosis; R00.1 Bradycardia, unspecified
CPT/HCPCS: 36415; 51702; 71045; 80048; 80053; 80306; 81000; 83605; 83735; 84100; 84703; 85025; 85610; 85730; 87040; 87088; 93306; 96360; G0378

== ENCOUNTER 2021-12-10 09:19 | Emergency (ER) | payer SELFPAY ==
[~2021-12-10] VITALS: Ht 177 cm; Wt 67.0 kg
[~2021-12-10 09:19] MED LIST changes: +FLDR.1T PO; -SULF1TAB35 PO; +SULF1TAB38 PO
[2021-12-10] MEDS ORDERED: ONDANSETRON 4 MG (ZOFRAN) ORAL DISSOLVE TAB PO STA (10:18)
--- NOTE | 2021-12-10 10:23 | ED General ---
General Chief Complaint: Cough/Cold/Flu Symptoms Stated Complaint: FEVER - BODYACHES - HEADACHE - COUGH - CONGESTION Nursing Triage Note: PT CO OF COLD COUGH AND FLU SX SINCE LAST WEDNESDAY. STATES HAD FEVER UP TO 104 LAST PM STATES NEPHEW HAS RECENTLY HAS FLU Source of Information: Patient Exam Limitations: No Limitations History of Present Illness Date Seen by Provider: December 10, 2021 Time Seen by Provider: 10:08 Initial Comments Patient is a 31-year-old female who presents to the emergency department today with a chief complaint of fever, body aches, congestion, nausea, decreased oral intake and diarrhea. She was around her nephew a week ago Wednesday who tested positive for the flu. She has been alternating Tylenol and ibuprofen at home she does not recall when or what exactly she took this morning. Patient reports a temperature up to 104 last night. She is only allergic to latex. She does feel a little bit lightheaded and dizzy when she stands up. Her heart rate goes from 74 lying on her right side to about 82 when she stands up. She denies orthostatic symptoms on standing with me. Has had a partial hysterectomy. Denies any dysuria urgency or frequency. She has had as stated some diarrhea, nonblack nonbloody. No joint pains rashes or swelling. Currently rates her headache at a "7". All other review of systems reviewed and negative except as stated Timing/Duration: 1 Week Severity: Moderate Associated Systoms: Diaphoresis, Fever/Chills, Malaise, Nausea/Vomiting, Other (Diarrhea) Allergies and Home Medications Allergies Coded Allergies: latex (Verified Allergy, Unknown, 04/21/16) Patient Home Medication List Home Medication List Reviewed: Yes Cetirizine HCl (Zyrtec) 10 Mg Capsule, 10 MG PO DAILY, (Reported) Entered as Reported by: SAVANNA CARDENAS on 10/23/16 1002 Fludrocortisone Acetate (Fludrocortisone Acetate) 0.1 Mg Tab, 0.1 MG PO DAILY Prescribed by: JUSTINA BOUCHER on 12/18/18 1148 Naproxen (Naproxen) 500 Mg Tablet, 500 MG PO BID Prescribed by: DAYAMI TIJERINA on 02/10/17 0024 Tramadol HCl (Ultram) 50 Mg Tablet, 50 MG PO Q4H Prescribed by: DAYAMI TIJERINA on 02/10/174 Review of Systems Review of Systems Constitutional: see HPI EENTM: nose congestion Cardiovascular: no symptoms reported Gastrointestinal: loss of appetite, nausea Genitourinary: no symptoms reported Musculoskeletal: other (body aches) Skin: no symptoms reported Psychiatric/Neurological: Headache All Other Systems Reviewed Negative Unless Noted: Yes Past Usehdiq-Spofzo-Nryduj Hx Patient Social History Tobacco Use?: Yes Smoking Status: Current Everyday Smoker Substance use?: No Alcohol Use?: No Pt feels they are or have been: No Immunizations Up To Date Tetanus Booster (TDap): Less than 5yrs Seasonal Allergies Seasonal Allergies: Yes Past Medical History Surgery/Hospitalization HX: PARTIAL HYSTERECTOMY Surgeries: Yes Hysterectomy Respiratory: No Cardiac: Yes (with static hypertension and positive tilt table test) Hypotension Neurological: No Reproductive Disorders: No [employer] History: Hysterectomy Sexually Transmitted Disease: No HIV/AIDS: No Genitourinary: No Kidney Infection, UTI-Chronic Gastrointestinal: No Musculoskeletal: No Endocrine: No HEENT: No Loss of Vision: Bilateral Hearing Impairment: Denies Cancer: No Psychosocial: No Integumentary: No Blood Disorders: No Adverse Reaction/Blood Tranf: No Family Medical History Patient reports no known family medical history. Physical Exam Vital Signs Vital Signs - First Documented 12/10/21 09:39 Temp 36.6 Pulse 71 Resp 16 B/P (MAP) 119/80 (93) Pulse Ox 100 Capillary Refill : Less Than 3 Seconds Height, Weight, BMI Height: 5'10.00" Weight: 164lbs. 4.0oz. [id number]; 21.00 BMI Method:Stated General Appearance: No Apparent Distress, WD/WN Eyes: Bilateral Eye Normal Inspection, Bilateral Eye PERRL, Bilateral Eye EOMI HEENT: PERRL/EOMI, TMs Normal, Normal ENT Inspection, Pharynx Normal Neck: Normal Inspection Respiratory: Lungs Clear, Normal Breath Sounds, No Accessory Muscle Use, No Respiratory Distress Cardiovascular: Regular Rate, Rhythm (80's), Normal Peripheral Pulses Gastrointestinal: Non Tender, Soft Extremity: Normal Inspection, Normal Range of Motion, Non Tender, No Calf Tenderness Neurologic/Psychiatric: Alert, Oriented x3, No Motor/Sensory Deficits, Normal 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, 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 Norm as Tested Skin: Normal Color, Warm/Dry Progress/Results/Core Measures Suspected Sepsis SIRS Temperature: Pulse: 71 Respiratory Rate: 16 Blood Pressure 119 /80 Mean: 93 Results/Orders Lab Results Laboratory Tests Test 12/10/21 09:42 Range/Units Influenza Type A (RT-PCR) Not Detected Not Detecte Influenza Type B (RT-PCR) Not Detected Not Detecte SARS-CoV-2 RNA (RT-PCR) Not Detected Not Detecte My Orders Orders - DONALDO FRAZIER MD Influenza A And B By Pcr (12/10/21 09:45) Ondansetron Oral Dissolve Tab (Zofran (12/10/21 10:18) Ketorolac Injection (Toradol Injection) (12/10/21 10:30) Medications Given in ED Current Medications Medications Dose Ordered Sig/Gissel Route Start Time Stop Time Status Last Admin Dose Admin Ketorolac Tromethamine 30 mg ONCE ONCE IM 12/10/21 10:30 12/10/21 10:31 DC 12/10/21 10:29 30 MG Vital Signs/I&O 12/10/21 09:39 Temp 36.6 Pulse 71 Resp 16 B/P (MAP) 119/80 (93) Pulse Ox 100 Capillary Refill : Less Than 3 Seconds Blood Pressure Mean: 93 Progress Note : Time: 10:59 Progress Note Patient is feeling better after Zofran and Toradol. Her flu and COVID are negative. We talked about return precautions. I encouraged clear liquids lots of fluids to stay well-hydrated. She verbalized understanding, all questions were sought and answered. Patient is stable for discharge. Departure Impression Primary Impression: Acute viral syndrome Disposition: 01 HOME, SELF-CARE Condition: Stable Departure-Patient Inst. Decision time for Depature: 11:00 Referrals: YANIV BROWNLEE MD (PCP) Primary Care Physician [facility] (Family) Primary Care Physician Patient Instructions: Viral Syndrome (DC) Add. Discharge Instructions: Drink lots of fluids to stay well-hydrated. Take the nausea medicine every 8 hours as needed for upset stomach. [id number] ibuprofen 600 mg which is 3 tablets every 6 hours with food as needed for body aches and any fever over 100.4. Return to the emergency department for worsening cough, shortness of breath, rash, vomiting or other emergent, concerning symptoms. Scripts Ondansetron (Ondansetron Odt) 4 Mg Tab.rapdis 4 MG PO Q8H PRN for nausea, #20 TAB Prov: DONALDO FRAZIER MD 12/10/21 DONALDO FRAZIER MD December 10, 2021 10:23
[2021-12-10] MEDS ORDERED: KETOROLAC 30 MG/ML VIAL IM ONE (10:30)
[2021-12-10] MEDS ORDERED: ONDA4TAB11 PO (11:01)
[2021-12-10 11:13] VITALS: BP 132/71
== END 2021-12-10 11:13 | disposition home or self-care (01) ==
LOC: EDUNIT# 09:19 → ER 09:20
DX: B34.9 Viral infection, unspecified (principal); Z20.822 Contact with and (suspected) exposure to COVID-19; F17.200 Nicotine dependence, unspecified, uncomplicated
CPT/HCPCS: 87636; 99284